=== PATIENT | male | born 1975 | race African-American/Black ===

== ENCOUNTER 2019-07-25 01:02 | Emergency (ER) | payer OTHER, SELFPAY ==
--- NOTE | ~2019-07-25 | XR_ITS ---
EXAMINATION: XR chest 2V DATE: 07/25/2019 01:57 INDICATION: Left-sided chest pain TECHNIQUE: PA and lateral views of the chest were obtained. COMPARISON: Chest radiograph dated 03/14/2019 FINDINGS: The lungs remain clear with no focal airspace opacities, pulmonary edema, pleural effusion or pneumot horax. The cardiomediastinal silhouette is normal. Cholecystectomy clips in the right upper quadrant. Mild thoracic spondylosis. IMPRESSION: 1. No acute cardiopulmonary disease. Reviewed, dictated and finalized at location A. N [employer]SEM[employer]
[2019-07-25 01:09] VITALS: BP 153/99; PULSE 85; RESP 21; TEMP 37; O2SAT 98
--- NOTE | 2019-07-25 01:18 | ED.CHESTPAIN ---
HPI - Chest Pain General Chief Complaint: Chest Pain Stated Complaint: CHEST DISCOMFORT/LEG AND ARM TINGLING Time Seen by Provider: 07/25/19 01:09 Source: patient and RN notes reviewed Mode of arrival: ambulatory Limitations: no limitations History of Present Illness HPI narrative: Pt is a 44 y/o male who presents to the ED with c/o constant lt sided chest discomfort starting around 18:00 yesterday. He notes that he has had intermittent tingling in his lt leg for the past 3-4 days. Pt states that he feels as though he has poor circulation in his lt leg. He notes that his lt leg felt odd and slightly weak while walking yesterday. Pt states that he has also had independent tingling down his lt arm for the past several days. He notes that around 18:00 this evening, he developed heaviness in the lt side of his chest. Pt states that his pain doesn't radiate into his neck or shoulder. He also reports recent palpitations upon exertion, noting that his heart begins to pound after he walks up the stairs. Pt currently denies any back pain. He notes that he hasn't taken any pain medications for his symptoms. Pt states that he was evaluated here previously for similar symptoms, and notes that he was discharged home with no acute findings. MD complaint: chest discomfort Onset (ago): hour(s) (7) Timing of current episode: constant Prior episodes: Yes Pain location: left chest Quality: heaviness Associated symptoms: palpitations and other (tingling in lt arm; tingling in lt leg) Related Data Allergies Allergy/AdvReac Type Severity Reaction Status Date / Time No Known Allergies Allergy Unknown Unverified 03/14/19 10:06 No Known Allergies Allergy Uncoded 03/14/19 10:06 Review of Systems Review of Systems: All systems reviewed & are unremarkable except as noted in HPI and below Cardiovascular: Cardiovascular: Reports palpitations and Reports other (heaviness in lt side of chest) Musculoskeletal: Musculoskeletal: Denies back pain, Denies arthralgias (shoulder pain) and Denies neck pain Neurologic: Reports tingling (tingling in lt leg; tingling in lt arm) [facility] Past Medical History Medical History Back pain GERD (gastroesophageal reflux disease) Hypertension Sleep apnea Surgical History Surgical History H/O esophagogastroduodenoscopy History of cholecystectomy Previous back surgery fusion of L4 and L5 Social History Social History Smoking status: Never smoker Substance use: never Comments PCP is Dr. Shaffer. Exam Narrative: Exam Narrative: GENERAL: Well-appearing, well-nourished, and in no acute distress. HEAD: Normocephalic, atraumatic. ENT: Mucous membranes moist. NECK: Supple. No reproducible neck pain. CHEST: Clear to auscultation. No respiratory distress. HEART: Regular rate and rhythm. Normal peripheral pulses. ABDOMEN: Soft, nontender, nondistended. EXTREMITIES: Normal range of motion. No edema. SKIN: Warm, dry, no rash. NEURO: Alert and oriented x3. Course Course Emergency Course: Unremarkable evaluation. Patient's symptoms do not seem to correlate with each other. Recommend that he follow-up with his primary care physician for further evaluation. Arm and leg pain more likely be radicular. Will start on naproxen. Vital Signs Vital signs: Vital Signs Temperature 98.6 F 07/25/19 01:09 Pulse Rate 85 07/25/19 01:09 Respiratory Rate 21 H 07/25/19 01:09 Blood Pressure 153/99 H 07/25/19 01:09 Pulse Oximetry 98 07/25/19 01:09 Temperature 98.6 F 07/25/19 01:09 Pulse Rate 82 07/25/19 03:55 Respiratory Rate 15 07/25/19 03:55 Blood Pressure 129/86 07/25/19 03:55 Pulse Oximetry 98 07/25/19 03:55 MDM - Chest Pain Lab Data Result diagrams: 07/25/19 01:36 07/25/19 01:36 Labs: Lab Results 07/25/19 07/25/19 Ran
[2019-07-25 01:44] LABS: Basophils Percent Auto 0.6 % (0.2-1.2); Eosinophils Absolute Auto 0.4 K/mm3 (0-0.3); Eosinophils Percent Auto 7.9 % (0-4.4); Hematocrit 39.7 % (42.0-52.0); Immature Granulocyte Absolute 0.01 K/mm3 (0.00-0.031); Immature Granulocyte Percent A 0.2 % (0-0.5); Lymphocytes Percent Auto 34.7 % (18.3-44.2); Mean Corpuscular HGB Conc 32.7 g/dl (32-36); Mean Corpuscular Hemoglobin 29.1 pg (26-34); Mean Platelet Volume 10.3 fl (7.4-10.4); Monocytes Absolute Auto 0.5 K/mm3 (0.1-0.6); Monocytes Percent Auto 9.1 % (2.6-8.5); Neutrophils Absolute Auto 2.5 K/mm3 (1.3-6.7); Neutrophils Percent Auto 47.5 % (45.5-73.1); Platelet Count Result 232 k/mm3 (150-375); Red Blood Count 4.46 M/mm3 (4.6-6.20); Red Cell Distribution Width 13.6 % (11.5-14.5); White Blood Count 5.2 K/mm3 (4.5-10.0)
--- NOTE | 2019-07-25 01:53 | ECG_ITS ---
Measurements Intervals [place] Rate: 88 P: 46 KS: 151 QRS: 5 QRSD: 99 T: 37 QT: 358 QTc: 435 Interpretive Statements SINUS RHYTHM NORMAL ECG Electronically Signed On 07-25-2019 9:24:04 PSYCHOLOGY FELLOW by Tomasz Larios D.O.
[2019-07-25 01:55] LABS: Blood Urea Nitrogen 14 mg/dL (9-20); Calcium 9.2 mg/dL (8.4-10.2); Carbon Dioxide 27 mmol/L (22-30); Chloride 101 mmol/L (98-107); Estimated CRCL calculation 101 ml/min; Estimated Glomerular Filt Rate > 60; Glucose 106 mg/dL (75-110); Potassium 3.8 mmol/L (3.4-5.0); Sodium 139 mmol/L (137-145)
[2019-07-25] MEDS: KETOROLAC 30 MG/ML VIAL (*BKC) IV PUSH (02:05)
[2019-07-25 02:06] VITALS: BP 129/87; PULSE 86; RESP 18; O2SAT 98
[2019-07-25 02:07] LABS: Troponin I < 0.012 ng/mL (0.000-0.034)
[2019-07-25 02:52] VITALS: BP 138/77; PULSE 70; RESP 16; O2SAT 99
[2019-07-25 03:55] VITALS: BP 129/86; PULSE 82; RESP 15; O2SAT 98
[2019-07-25 04:34] VITALS: BP 129/92; PULSE 62; RESP 19; TEMP 37; O2SAT 99
== END 2019-07-25 04:36 | disposition home or self-care (01) ==
PROVIDERS: Emergency Provider Emergency Medicine; PCP Emergency Medicine
DX: R07.89 Other chest pain (principal); K21.9 Gastro-esophageal reflux disease without esophagitis; I10 Essential (primary) hypertension; G47.30 Sleep apnea, unspecified; Z98.1 Arthrodesis status
CPT/HCPCS: 36415; 71046; 80048; 84484; 85025; 93005; 96374; 99284; J1885

== ENCOUNTER 2020-01-24 08:11 | Outpatient (CLI) | payer OTHER, SELFPAY ==
--- NOTE | ~2020-01-24 | MR_ITS ---
EXAMINATION: MR lumbar spine wo con EXAM DATE: 01/24/2020 08:52 INDICATION: Low back pain and left leg pain. TECHNIQUE: Multi-sequential, multiplanar MR images of the lumbar spine were obtained without contrast . Sagittal T1, T2, T2 fat saturation images. Axial T2 weighted images. Comparison is made to prior examination from 01/03/2013. FINDINGS: There is congenitally narrow L5-S1 disc space with moderate superimposed disc disease, prog ression compared to 2013. There is 2 mm retrolisthesis L4 on L5 and L5 on S1. The conus medullaris te rminates at the L1-2 level and has normal signal intensity and morphology. There are no suspicious m arrow signal abnormalities. Paraspinal soft tissue is unremarkable. Level by level evaluation: T11-12: There is a mild diffuse disc bulge. Facet arthropathy: Moderate. Neural foraminal stenosis: Moderate right, mild to moderate left. Central canal stenosis: Mild to moderate. T12-L1: Disc does not extend beyond the endplate margin. Facet arthropathy: Mild. Neural foraminal stenosis: No stenosis. Central canal stenosis: No stenosis. L1-L2: Disc does not extend beyond the endplate margin. Facet arthropathy: Mild. Neural foraminal stenosis: No stenosis. Central canal stenosis: No stenosis. L2-L3: Disc does not extend beyond the endplate margin. Facet arthropathy: Mild. Neural foraminal stenosis: No stenosis. Central canal stenosis: No stenosis. L3-L4: There is a mild diffuse disc bulge. Facet arthropathy: Mild to moderate. Neural foraminal stenosis: Moderate bilateral, left more than right. Central canal stenosis: Mild to moderate. L4-L5: There is a mild to moderate diffuse disc bulge. Facet arthropathy: Moderate. Neural foraminal stenosis: Moderate to severe bilateral. Central canal stenosis: Moderate. L5-S1: There is a mild to moderate diffuse disc bulge. Facet arthropathy: Mild to moderate. Neural foraminal stenosis: Moderate to severe bilateral. Central canal stenosis: Mild to moderate. IMPRESSION: 1. L4-5 and L5-S1 moderate to severe bilateral neural foraminal stenosis. 2. Lesser spondylosis above. Reviewed, dictated and finalized at location B.
== END 2020-01-24 08:12 ==
PROVIDERS: PCP Emergency Medicine; Visit Provider Emergency Medicine
DX: M54.42 Lumbago with sciatica, left side (principal)
CPT/HCPCS: 72148

== ENCOUNTER 2020-02-03 08:44 | Emergency (ER) | payer OTHER, SELFPAY ==
--- NOTE | ~2020-02-03 | XR_ITS ---
EXAMINATION: XR foot LT min 3V DATE: 02/03/2020 09:11 INDICATION: In at the left fifth toe post blunt trauma TECHNIQUE: Dorsoplantar, two oblique and lateral views of the left foot were obtained. COMPARISON: None. FINDINGS: Alignment is normal. No fracture. Joint spaces are normal. Soft tissues are unremarkable. IMPRESSION: 1. Negative left foot radiographs. Reviewed, dictated and finalized at location A.
--- NOTE | 2020-02-03 08:57 | ED.LOWEXIN ---
HPI - Extremity Injury (Lower) General Chief Complaint: Extremity Injury, Lower Stated Complaint: L FOOT PAIN Time Seen by Provider: 02/03/20 08:49 Source: RN notes reviewed History of Present Illness HPI Narrative: Patient presents emergency department from home for left foot pain. Patient states proximally 2 hours prior to arrival he opened his freezer when a package of hamburger fell out onto his left toe. Patient states the pain is on the left fifth toe denies any other trauma or injury. States he did take naproxen at home prior to arrival. Denies any numbness or tingling in the extremity Related Data Allergies Allergy/AdvReac Type Severity Reaction Status Date / Time No Known Allergies Allergy Unknown Verified 02/03/20 09:05 No Known Allergies Allergy Unknown Uncoded 02/03/20 09:05 Review of Systems Review of Systems: Narrative: Gen.: Denies fevers or chills Musculoskeletal: See HPI Neuro: Denies numbness, tingling, weakness Skin: Denies rash Endo: Denies DM PMFSH Past Medical History Medical History Back pain GERD (gastroesophageal reflux disease) Hypertension Sleep apnea Family History Family History (System 01/24/20 @ 13:37 by Tiara Palomo) Mother Patient's mother is in good health Father Patient's father is in good health Sibling Patient's sister is in good health Patient's brother is in good health Social History Social History Smoking status: Never smoker Alcohol intake: never Substance use: never Gender identity (if verbalized by the patient): Male Exam Narrative: Exam Narrative: APPEARANCE: No acute distress, nontoxic, resting in bed Eyes: EOMI HEENT: Normocephalic, atraumatic, RESPIRATORY: No respiratory distress MUSCULOSKELETAl: Tender palpation over the entire left fifth toe, mild swelling no ecchymosis, no tenderness of the remainder of the foot or ankle, dorsalis pedis pulse 2+, neurovascular intact NEURO: Awake and alert. Following commands, speech normal, no focal deficits SKIN:: Warm, dry. Normal Color no rash or lesions Course Course Emergency Course: Discussed with patient results of workup and diagnosis. Discussed need for follow-up with primary care, proper use of medication, and reasons to return to the emergency department. Patient understands and agrees to current treatment plan Vital Signs Vital signs: Vital Signs Temperature 97.1 F L 02/03/20 08:58 Pulse Rate 78 02/03/20 08:58 Respiratory Rate 18 02/03/20 08:58 Blood Pressure 180/103 H 02/03/20 08:58 Pulse Oximetry 100 02/03/20 08:58 Temperature 97.1 F L 02/03/20 08:58 Pulse Rate 78 02/03/20 08:58 Respiratory Rate 18 02/03/20 08:58 Blood Pressure 180/103 H 02/03/20 08:58 Pulse Oximetry 100 02/03/20 08:58 MDM - Extremity Injury (Lower) Imaging Data Radiologist's impression: ITS Impressions Foot X-Ray 02/03/20 09:16 IMPRESSION: 1. Negative left foot radiographs. Discharge Plan Discharge Clinical Impression: Contusion of left foot Patient Disposition: Home, Self-Care Condition: Stable Instructions: Antibiotic Form, Foot Contusion (ED) Additional Instructions: Return for increasing pain numbness or tingling in extremities or any other symptoms of concern. Keep the leg elevated at rest Prescriptions: No Action naproxen 500 mg tablet 500 mg PO BID Qty: 20 RF: 0 Follow-up/Referrals: Brendon Shaffer MD [Primary Care Provider] - 2 Days Time of Disposition: 09:35
[2020-02-03 08:58] VITALS: BP 180/103; PULSE 78; RESP 18; TEMP 36.2; O2SAT 100
== END 2020-02-03 10:06 | disposition home or self-care (01) ==
PROVIDERS: Emergency Provider Emergency Medicine; PCP Emergency Medicine
DX: S90.32XA Contusion of left foot, initial encounter (principal); K21.9 Gastro-esophageal reflux disease without esophagitis; I10 Essential (primary) hypertension; G47.30 Sleep apnea, unspecified; W20.8XXA Other cause of strike by thrown, projected or falling object, initial encounter
CPT/HCPCS: 73630; 99283

== ENCOUNTER 2020-08-02 08:26 | Outpatient (CLI) | payer OTHER, SELFPAY ==
--- NOTE | 2020-08-02 12:00 | NEURO_ITS ---
Impression: # Complains of left lower extremity pain in addition to the history of back pain. # Normal nerve conduction study. # F-waves mildly asymmetrical. # Normal needle/EMG exam except left EDB mildly neurogenic. # Clinical correlation recommended; Higher involvement needs to be ruled out. Nerve Conduction Studies Anti Sensory Summary Table Stim Site NR Peak (ms) P-T Amp (?V) Site1 Site2 Delta-P (ms) Dist (cm) Nick (m/s) Left Sup Fibular Anti Sensory (Ant Lat Mall) 14 cm 3.8 21.0 14 cm Ant Lat Mall 3.8 16.0 42 Left Sural Anti Sensory (Lat Mall) Calf 3.9 6.1 Calf Lat Mall 3.9 16.0 41 Motor Summary Table Stim Site NR Onset (ms) O-P Amp (mV) Site1 Site2 Delta-0 (ms) Dist (cm) Nick (m/s) Left Peroneal Motor (Vastus Med) Ankle 4.1 1.2 Popit Ankle 9.4 42.0 45 Popit 13.5 1.6 Left Tibial Motor (Abd Bowers Brev) Ankle 4.7 2.0 Knee Ankle 8.8 45.0 51 Knee 13.5 1.3 F Wave Studies NR F-Lat (ms) L-R F-Lat (ms) Left Peroneal (Mrkrs) (EDB) 61.29 Left Tibial (Mrkrs) (Abd Hallucis) 58.48 EMG Side Muscle Nerve Root Ins Act Fibs Amp Dur Recrt Comment Left AntTibialis Dp Br Fibular L4-5 Nml Nml Nml Nml Nml Left Gastroc Tibial S1-2 Nml Nml Nml Nml Nml Left Fibularis Long Sup Br Fibular L5-S1 Nml Nml Nml Nml Nml Left Flex Dig Long Tibial L5-S2 Nml Nml Nml Nml Nml Left Ext Dig Brev Dp Br Fibular L5, S1 Nml Nml Nml Nml Reduced MTDD
== END 2020-08-02 08:27 | disposition home or self-care (01) ==
PROVIDERS: PCP Emergency Medicine; Visit Provider Nurse Practitioner Family
DX: M79.2 Neuralgia and neuritis, unspecified (principal)
CPT/HCPCS: 95886; 95908

== ENCOUNTER 2020-10-20 14:38 | Outpatient (CLI) | payer OTHER, SELFPAY ==
--- NOTE | ~2020-10-20 | US_ITS ---
EXAMINATION: US scrotum doppler DATE: 10/20/2020 15:12 INDICATION: Left scrotal pain. TECHNIQUE: Grayscale and Doppler ultrasound images of the testes were obtained. COMPARISON: None. FINDINGS: The right testis measures 4.6 x 2.8 x 2.6 cm. The left testis measures 4.4 x 2.1 x 2.3 cm. There is normal vascular flow to both testes. The right epididymis is normal with normal vascular pramod w. The left epididymis is normal with normal vascular flow. There is no hydrocele. There is a left-si ded varicocele. IMPRESSION: 1. Left-sided varicocele. Reviewed, dictated and finalized at location B. IMPRESSION: 1. Left-sided varicocele.
== END 2020-10-20 14:39 | disposition home or self-care (01) ==
PROVIDERS: PCP Emergency Medicine; Visit Provider Urology
DX: N50.812 Left testicular pain (principal); I86.1 Scrotal varices
CPT/HCPCS: 76870; 93976

== ENCOUNTER 2020-11-15 22:34 | Emergency (ER) | payer OTHER, SELFPAY ==
--- NOTE | ~2020-11-15 | XR_ITS ---
EXAMINATION: XR shoulder RT min 2V EXAM DATE: 11/16/2020 00:25 INDICATION: Initial encounter following injury, with pain of the shoulder. TECHNIQUE: The following right shoulder projections obtained: frontal projection with internal rotati on, frontal projection with external rotation, Grashey, and scapular Y view (4+ views). Comparison is made to prior examination from 10/12/2012. FINDINGS: No evidence of right shoulder rotator cuff calcific tendinosis. There is mild glenohumera l joint, mild acromioclavicular joint primary osteoarthritis. There are no acute fractures or disloca tions identified. There is no subcutaneous gas. The soft tissue is unremarkable. There are no rad iopaque foreign bodies. IMPRESSION: 1. XR shoulder RT min 2V exam without acute osseous findings. Reviewed, dictated and finalized at location A.
[2020-11-15 22:37] VITALS: BP 164/109; PULSE 79; RESP 16; TEMP 35.6; O2SAT 98
--- NOTE | 2020-11-16 00:13 | ED.UPPEXIN ---
HPI - Extremity Injury (Upper) General Chief Complaint: Extremity Injury, Upper Stated Complaint: Right shoulder pain, fall Time Seen by Provider: 11/15/20 23:50 Source: patient Mode of arrival: ambulatory Limitations: no limitations History of Present Illness HPI narrative: This is a 45 year old male who presents for evaluation of right shoulder pain s/p fall. He states he accidentally slipped at work. He states he fell backwards but he did not hit his head. He has right shoulder pain since his fall. Pain with worse with movement. He denies limb numbness or tingling. He denies weakness. HE has not taken anything for pain. He also denies sob. PAin is 4/10. Related Data Allergies Allergy/AdvReac Type Severity Reaction Status Date / Time No Known Allergies Allergy Unknown Verified 02/03/20 09:05 No Known Allergies Allergy Unknown Uncoded 02/03/20 09:05 Review of Systems Review of Systems: All systems reviewed & are unremarkable except as noted in HPI and below PMFSH Past Medical History Medical History (Updated 11/16/20 @ 01:08 by Miriam Camarillo MD) Back pain GERD (gastroesophageal reflux disease) Hypertension Sleep apnea Surgical History Surgical History H/O esophagogastroduodenoscopy History of cholecystectomy Previous back surgery fusion of L4 and L5 Family History Family History (System 01/24/20 @ 13:37 by Tiara Palomo) Mother Patient's mother is in good health Father Patient's father is in good health Sibling Patient's sister is in good health Patient's brother is in good health Social History Social History Smoking status: Never smoker Alcohol intake: never Substance use: never Gender identity (if verbalized by the patient): Male Exam Const: General: no acute distress and alert Orientation/consciousness: patient oriented x3 HENMT: Head: normocephalic and atraumatic Resp: Effort & Inspection: normal respiratory effort and no retractions Auscultation: clear to auscultation bilaterally Cardio: Rate: regular rate Rhythm: regular rhythm Heart sounds: no murmurs Neuro: General: patient oriented x3, moves all extremities and CN's II-XI intact bilaterally Extrem: Other: FROM right shoulder, TTP along right trapezius, nvi Course Vital Signs Vital signs: Vital Signs Temperature 96.1 F L 11/15/20 22:37 Pulse Rate 79 11/15/20 22:37 Respiratory Rate 16 11/15/20 22:37 Blood Pressure 164/109 H 11/15/20 22:37 Pulse Oximetry 98 11/15/20 22:37 Temperature 97.1 F L 11/16/20 01:14 Pulse Rate 80 11/16/20 01:14 Respiratory Rate 16 11/16/20 01:14 Blood Pressure 133/85 11/16/20 01:14 Pulse Oximetry 100 11/16/20 01:14 MDM - Extremity Injury (Upper) Imaging Data Attestation: I personally reviewed and interpreted this imaging study as follows: My impression: right shoulder xray- no fracture, no dislocation Discharge Plan Discharge Clinical Impression: Muscle strain of right shoulder Qualifiers: Encounter type: initial encounter Qualified Code(s): S46.911A - Strain of unspecified muscle, fascia and tendon at shoulder and upper arm level, right arm, initial encounter Patient Disposition: Home, Self-Care Condition: Stable Instructions: Antibiotic Form, Shoulder Sprain (ED) Additional Instructions: Today you were evaluated for your shoulder pain. No fractures were found in your xray. Take naproxen as needed. Follow up with your primary care physician if your pain has not resolved in 1 week. Prescriptions: New naproxen 500 mg tablet,delayed release (DR/EC) 500 mg PO BID PRN (Reason: pain) Qty: 20 RF: 0 No Action naproxen 500 mg tablet 500 mg PO BID Qty: 20 RF: 0 Follow-up/Referrals: Brendon Shaffer MD [Primary Care Provider] -
[2020-11-16] MEDS: CYCLOBENZAPRINE HCL 10 MG TABLET PO (00:26)
[2020-11-16] MEDS: IBUPROFEN 400 MG TABLET 800 MG PO (00:26)
[2020-11-16 01:14] VITALS: BP 133/85; PULSE 80; RESP 16; TEMP 36.2; O2SAT 100
== END 2020-11-16 01:20 | disposition home or self-care (01) ==
PROVIDERS: Emergency Provider General Practice; PCP Emergency Medicine
DX: S46.911A Strain of unspecified muscle, fascia and tendon at shoulder and upper arm level, right arm, initial encounter (principal); K21.9 Gastro-esophageal reflux disease without esophagitis; I10 Essential (primary) hypertension; G47.30 Sleep apnea, unspecified; Z98.1 Arthrodesis status; W01.0XXA Fall on same level from slipping, tripping and stumbling without subsequent striking against object, initial encounter
CPT/HCPCS: 73030; 99283; A9270

== ENCOUNTER 2021-05-01 11:59 | Emergency (ER) | payer OTHER, SELFPAY ==
--- NOTE | ~2021-05-01 | XR_ITS ---
EXAMINATION: XR knee LT min 4V EXAM DATE: 05/01/2021 12:32 INDICATION: fall, injury, pain Attn Lt Ant Inferopatellar Stinging . Initial encounter. TECHNIQUE: Left knee frontal, crosstable lateral, orthogonal oblique projections for interpretation. There is no prior study for comparison. FINDINGS: No evidence osteochondral defect or joint body in the left knee joint. There is minimal p rimary osteoarthritis. No joint effusion. There are no acute fractures or dislocations identified. There is no subcutaneous gas. The soft tissue is unremarkable. There are no radiopaque foreign bod ies. IMPRESSION: 1. Left knee exam without acute osseous findings. Reviewed, dictated and finalized at location A. L [facility] [employer]
[2021-05-01 12:04] VITALS: BP 145/74; PULSE 81; RESP 17; TEMP 35.7; O2SAT 100
--- NOTE | 2021-05-01 20:36 | ED.GENADULT ---
HPI - General Adult General Chief complaint: Extremity Injury, Lower Stated complaint: Fell while running up steps, knee pain Time Seen by Provider: 05/01/21 12:28 Source: patient Mode of arrival: ambulatory Limitations: no limitations History of Present Illness HPI narrative: Patient is a 38-year-old male presented with chief complaint of twisting his left knee after falling on the steps and hitting the anterior aspect on this date. Patient reports that he is able to weight-bear with some discomfort. Patient reports circumferential discomfort to the knee. Patient denies open wounds or prior fractures to the area. Patient denies any head impact, loss of consciousness or any other areas of injury. Related Data Allergies Allergy/AdvReac Type Severity Reaction Status Date / Time No Known Allergies Allergy Unknown Verified 02/03/20 09:05 No Known Allergies Allergy Unknown Uncoded 02/03/20 09:05 Review of Systems Review of Systems: CONSTITUTIONAL: Denies fever, chills, or sweats. EYES: Denies visual changes, redness, or discharge. ENT: Denies rhinorrhea, congestion, sore throat, or otalgia. CARDIOVASCULAR: Denies chest pain, palpitations, or edema. RESPIRATORY: Denies cough or dyspnea. GASTROINTESTINAL: Denies abdominal pain, nausea, vomiting, or diarrhea. GENITOURINARY: Denies dysuria or hematuria. SKIN: Denies rash or itching. MUSCULOSKELETAL: Reports left knee pain denies back pain, joint pain, or myalgia. NEUROLOGIC: Denies headache, numbness, dizziness, or weakness. PSYCHIATRIC: Denies anxiety or depression. [facility] Past Medical History Medical History (Updated 05/01/21 @ 13:01 by Chloe Rivera PA-C) Back pain GERD (gastroesophageal reflux disease) Hypertension Sleep apnea Surgical History Surgical History H/O esophagogastroduodenoscopy History of cholecystectomy Previous back surgery fusion of L4 and L5 Family History Family History (System 01/24/20 @ 13:37 by Tiara Palomo) Mother Patient's mother is in good health Father Patient's father is in good health Sibling Patient's sister is in good health Patient's brother is in good health Social History Social History Smoking status: Never smoker Alcohol intake: never Substance use: never Gender identity (if verbalized by the patient): Male Exam Narrative: GENERAL: Well-appearing, well-nourished, and in no acute distress. HEAD: Normocephalic, atraumatic. EYES: PERRLA and EOMI. CHEST: Clear to auscultation. No respiratory distress. No wheezes rales or rhonchi HEART: Regular rate and rhythm. No murmur heard. Normal peripheral pulses. EXTREMITIES: Normal range of motion. Diffuse tenderness to the left knee. Patient is able to ambulate and weight-bear. No edema. There is some decreased full extension. Flexion intact with possible mild decrease. No significant laxity appreciated. SKIN: Warm, dry, no rash. NEURO: No focal deficits. Alert and oriented x3. PSYCH: Normal mood and affect. Course Vital Signs Vital signs: Vital Signs Temperature 96.2 F L 05/01/21 12:04 Pulse Rate 81 05/01/21 12:04 Respiratory Rate 17 05/01/21 12:04 Blood Pressure 145/74 H 05/01/21 12:04 Pulse Oximetry 100 05/01/21 12:04 Temperature 96.2 F L 05/01/21 12:04 Pulse Rate 81 05/01/21 12:04 Respiratory Rate 17 05/01/21 12:04 Blood Pressure 145/74 H 05/01/21 12:04 Pulse Oximetry 100 05/01/21 12:04 Medical Decision Making MDM Narrative Medical decision making narrative: Discussed sprain, strain protocol with patient. Discussed need to follow-up with primary care for reevaluation if symptoms persist. That if symptoms persist he may need further imaging for evaluation of tendons and ligaments patient verbalized understanding agreement with plan denies any other needs or concerns. Differential Diagnosis Different
== END 2021-05-01 13:14 | disposition home or self-care (01) ==
PROVIDERS: Emergency Provider Emergency Medicine; PCP Emergency Medicine
DX: S83.92XA Sprain of unspecified site of left knee, initial encounter (principal); S80.02XA Contusion of left knee, initial encounter; K21.9 Gastro-esophageal reflux disease without esophagitis; I10 Essential (primary) hypertension; G47.30 Sleep apnea, unspecified; W10.9XXA Fall (on) (from) unspecified stairs and steps, initial encounter
CPT/HCPCS: 73564; 99283

== ENCOUNTER 2021-09-11 11:59 | Emergency (ER) | payer OTHER, SELFPAY ==
[2021-09-11 12:09] VITALS: BP 133/61; PULSE 73; RESP 18; TEMP 36.5; O2SAT 100
--- NOTE | 2021-09-11 14:38 | PC.NURSE ---
Pt was seen by this RN leaving the ED at approx 1350. Room became available and patient called to go back at 13:56. RN checked outside, as patient had not come back in yet. Pt was not outside. Pt called again at 14:20, but pt was not in waiting room or outside. Now 14:41 and pt has still not returned.
== END 2021-09-11 15:25 | disposition left against medical advice (07) ==
LOC: ANHED 14:51
DX: Z53.21 Procedure and treatment not carried out due to patient leaving prior to being seen by health care provider (principal)
CPT/HCPCS: 99199

== ENCOUNTER 2021-09-11 22:48 | Emergency (ER) | payer OTHER, SELFPAY ==
--- NOTE | ~2021-09-11 | XR_ITS ---
EXAMINATION: XR foot RT min 3V DATE: 09/12/2021 00:02 INDICATION: Right fifth toe pain. TECHNIQUE: 3 views of right foot were obtained. COMPARISON: Right fifth toe radiographs 06/03/2018 FINDINGS: Bone alignment is normal. No fracture. There is mild osteoarthritis of first metatarsophala ngeal joint. There is an enthesophyte at posterior aspect of calcaneal tuberosity. IMPRESSION: 1. Mild osteoarthritis of first metatarsophalangeal joint. Reviewed, dictated and finalized at location A.
[2021-09-11 22:53] VITALS: BP 151/84; PULSE 84; RESP 18; TEMP 36.5; O2SAT 100
--- NOTE | 2021-09-11 23:29 | ED.LOWEXIN ---
HPI - Extremity Injury (Lower) General Chief Complaint: Extremity Injury, Lower Stated Complaint: toe pain Time Seen by Provider: 09/11/21 23:11 History of Present Illness HPI Narrative: 46-year-old male presents emergency room with complaints of right toe pain. Patient states this morning struck his toe on a piece of furniture. Patient states he is having pain when he ambulates. Took Tylenol earlier this evening, states that it appeared to resolve his pain. Related Data Allergies Allergy/AdvReac Type Severity Reaction Status Date / Time No Known Allergies Allergy Unknown Verified 09/11/21 22:56 No Known Allergies Allergy Unknown Uncoded 04 22:56 Review of Systems Review of Systems: CONSTITUTIONAL: Denies fever, chills, or sweats. EYES: Denies visual changes, redness, or discharge. ENT: Denies rhinorrhea, congestion, sore throat, or otalgia. CARDIOVASCULAR: Denies chest pain, palpitations, or edema. RESPIRATORY: Denies cough or dyspnea. GASTROINTESTINAL: Denies abdominal pain, nausea, vomiting, or diarrhea. GENITOURINARY: Denies dysuria or hematuria. SKIN: Denies rash or itching. MUSCULOSKELETAL: Reports right toe pain NEUROLOGIC: Denies headache, numbness, dizziness, or weakness. PSYCHIATRIC: Denies anxiety or depression. [facility] Past Medical History Medical History (Updated 09/12/21 @ 00:31 by Jefry Hairston APRN) Back pain GERD (gastroesophageal reflux disease) Hypertension Sleep apnea Surgical History Surgical History H/O esophagogastroduodenoscopy History of cholecystectomy Previous back surgery fusion of L4 and L5 Family History Family History Mother Patient's mother is in good health Father Patient's father is in good health Sibling Patient's sister is in good health Patient's brother is in good health Social History Social History Smoking status: Never smoker Alcohol intake: never Substance use: never Gender identity (if verbalized by the patient): Male Exam Narrative: GENERAL: Well-appearing, well-nourished, and in no acute distress. HEAD: Normocephalic, atraumatic. EYES: PERRLA and EOMI. CHEST: Clear to auscultation. No respiratory distress. No wheezes rales or rhonchi HEART: Regular rate and rhythm. No murmur heard. Normal peripheral pulses. ABDOMEN: Soft, nontender, nondistended, normal active bowel sounds. EXTREMITIES: right 5th toe: +TTP with no obvious STS; No obvious bony abnormality SKIN: Warm, dry, no rash. NEURO: No focal deficits. Alert and oriented x3. PSYCH: Normal mood and affect. Course Vital Signs Vital signs: Vital Signs Temperature 36.5 C 09/11/21 22:53 Pulse Rate 84 09/11/21 22:53 Respiratory Rate 18 09/11/21 22:53 Blood Pressure 151/84 H 09/11/21 22:53 Pulse Oximetry 100 09/11/21 22:53 Temperature 36.5 C 09/11/21 22:53 Pulse Rate 84 09/11/21 22:53 Respiratory Rate 18 09/11/21 22:53 Blood Pressure 151/84 H 09/11/21 22:53 Pulse Oximetry 100 09/11/21 22:53 MDM - Extremity Injury (Lower) Imaging Data My impression: No acute fracture Discharge Plan Discharge Clinical Impression: Contusion of toe Qualifiers: Encounter type: initial encounter Toe: lesser toe Damage to nail status: without damage Laterality: right Qualified Code(s): S90.121A - Contusion of right lesser toe(s) without damage to nail, initial encounter Patient Disposition: Home, Self-Care Condition: Stable Instructions: Antibiotic Form Prescriptions: No Action naproxen 500 mg tablet 500 mg PO BID Qty: 20 RF: 0 naproxen 500 mg tablet,delayed release (DR/EC) 500 mg PO BID PRN (Reason: pain) Qty: 20 RF: 0 Follow-up/Referrals: Ta Pinedo DPM [Physician] - Chantell Trevino DPM [Physician] - Brendon Shaffer MD [Primary Care Provider] - Time of Disp
[2021-09-12 01:02] VITALS: BP 135/69; PULSE 78; RESP 16; O2SAT 100
== END 2021-09-12 01:22 | disposition home or self-care (01) ==
PROVIDERS: Emergency Provider Nurse Practitioner Family; PCP Emergency Medicine
DX: S90.121A Contusion of right lesser toe(s) without damage to nail, initial encounter (principal); I10 Essential (primary) hypertension; G47.30 Sleep apnea, unspecified; W22.03XA Walked into furniture, initial encounter
CPT/HCPCS: 73630; 99283

== ENCOUNTER 2022-02-12 15:33 | Emergency (ER) | payer OTHER, SELFPAY ==
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
[2022-02-12 15:36] VITALS: BP 150/91; PULSE 79; RESP 16; TEMP 36.2; O2SAT 100
--- NOTE | 2022-02-12 16:36 | ED.LOWEXIN ---
HPI - Extremity Injury (Lower) General Chief Complaint: Extremity Injury, Lower <JOLANTA Cevallos Last Filed: 02/12/22 18:20> Stated Complaint: Possible broken right 5th toe <Chantell Trevino PA-C - Last Filed: 02/12/22 18:20> Time Seen by Provider: 02/12/22 16:06 <JOLANTA Cevallos Last Filed: 02/12/22 18:20> History of Present Illness HPI Narrative: Patient is a 46-year-old male here for evaluation of right fifth toe pain and injury. He states that he kicked his foot against a door about 30 minutes before arrival. Reports pain ever since, notes that the toe was numb for a second or two but is not numb since. Tetanus is up-to-date. Has been walking since. <JOLANTA Cevallos Last Filed: 02/12/22 18:20> Related Data Allergies/Adverse Reactions: Allergies Allergy/AdvReac Type Severity Reaction Status Date / Time No Known Allergies Allergy Unknown Uncoded 02/12/22 15:43 <JOLANTA Cevallos Last Filed: 02/12/22 18:20> Review of Systems Review of Systems: Gen.: Denies fevers or chills Eyes: Denies eye pain or visual change ENT: Denies congestion Respiratory: Denies shortness of breath or cough CV: Denies chest pain or palpitations GI: Denies abdominal pain nausea, emesis or diarrhea denies burning, urgency, frequency or hematuria Musculoskeletal: Reports right pinky toe pain. Neuro: Denies numbness, tingling, weakness or focal weakness Skin: Denies rash Except as documented, all other systems reviewed and negative <JOLANTA Cevallos Last Filed: 02/12/22 18:20> [facility] Past Medical History Medical History: Medical History (Updated 02/13/22 @ 00:00 by Background Daemon) Back pain GERD (gastroesophageal reflux disease) Hypertension Sleep apnea <JOLANTA Cevallos Last Filed: 02/12/22 18:20> Surgical History Surgical History: Surgical History H/O esophagogastroduodenoscopy History of cholecystectomy Previous back surgery fusion of L4 and L5 <Chantell Trevino PA-C - Last Filed: 02/12/22 18:20> Family History Family History: Family History Mother Patient's mother is in good health Father Patient's father is in good health Sibling Patient's sister is in good health Patient's brother is in good health <Chantell Trevino PA-C - Last Filed: 02/12/22 18:20> Social History Social History: Social History Smoking status: Never smoker Alcohol intake: never Substance use: never Gender identity (if verbalized by the patient): Male <Chantell Trevino PA-C - Last Filed: 02/12/22 18:20> Exam Narrative: Gen: Alert, oriented, no acute distress Eyes: EOMI, no icterus Pulm: Respirations even and unlabored, symmetric thorax expansion, no audible stridor or visible cyanosis CV: 2+ DP and PT pulses bilaterally. GI: No distension, no voluntary/involuntary guarding Neuro: AOx4, moves all extremities without apparent difficulty or weakness, follows commands MSK: Full range of motion in toes 1 through 5. Sensation intact to entire foot. Skin: Patient has abrasion to the base of the right fifth toenail with no active bleeding. Psych: Normal mood/affect, insight/judgement good, adequate fund of knowledge, recent/remote memory intact <Chantell Trevino PA-C - Last Filed: 02/12/22 18:20> Course STOPER/PA Physician Supervision For this patient encounter, I reviewed the STOPER or PA documentation, treatment plan, and medical decision making <Charles Cervantes MD - Last Filed: 02/13/22 07:18> Vital Signs Vital signs: Vital Signs Temperature 97.1 F L 02/12/22 15:36 Pulse Rate 79 02/12/22 15:36 Respiratory Rate 16 02/12/22 15:36 Blood Pressure 150/91 H 02/12/22 15:36 Pulse Oximetry
[2022-02-12] MEDS: IBUPROFEN 600 MG TABLET PO (16:47)
[2022-02-12] MEDS: ACETAMINOPHEN 325 MG TABLET 650 MG PO (16:47)
== END 2022-02-12 17:18 | disposition home or self-care (01) ==
PROVIDERS: Emergency Provider Emergency Medicine; PCP Emergency Medicine
DX: S99.921A Unspecified injury of right foot, initial encounter (principal); K21.9 Gastro-esophageal reflux disease without esophagitis; I10 Essential (primary) hypertension; G47.30 Sleep apnea, unspecified; W22.01XA Walked into wall, initial encounter
CPT/HCPCS: 73630; 99283; A9270

== ENCOUNTER 2022-02-24 02:29 | Emergency (ER) | payer OTHER, SELFPAY ==
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
[2022-02-24 02:39] VITALS: BP 132/89; PULSE 68; RESP 18; TEMP 36.3; O2SAT 100
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
== END 2022-02-24 04:25 | disposition home or self-care (01) ==
PROVIDERS: Emergency Provider Emergency Medicine; PCP Emergency Medicine
DX: S40.021A Contusion of right upper arm, initial encounter (principal); S70.01XA Contusion of right hip, initial encounter; K21.9 Gastro-esophageal reflux disease without esophagitis; I10 Essential (primary) hypertension; G47.30 Sleep apnea, unspecified; M89.9 Disorder of bone, unspecified; M16.0 Bilateral primary osteoarthritis of hip; V43.52XA Car driver injured in collision with other type car in traffic accident, initial encounter
CPT/HCPCS: 71046; 73060; 73502; 99284

== ENCOUNTER 2022-03-26 14:50 | Outpatient (CLI) | payer OTHER, SELFPAY ==
--- NOTE | ~2022-03-26 | CT_ITS ---
EXAMINATION: CT UE LT w con DATE: 03/26/2022 15:28 INDICATION: Left humeral mass. TECHNIQUE: Computed tomography (CT) of the left upper arm was performed without intravenous contrast. Automated exposure control and iterative reconstruction technique were employed. The dose-length pro duct was 828.11 mGy-cm. COMPARISON: Left humerus radiographs 02/24/2022 FINDINGS: Bone alignment is normal. No fracture. There is mild osteoarthritis of glenohumeral joint, severe osteoarthritis of acromioclavicular joint, and mild osteoarthritis of the elbow joint. At the proximal humeral diaphysis, there is a 3.4 x 2.0 x 4.1 cm nonaggressive expansile lytic lesion arisin g from the cortex with cap of calcifications in a pattern of cartilaginous matrix. The cartilage cap demonstrates a thickness of 13 mm. IMPRESSION: 1. 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 Low-g rade chondrosarcoma may have a similar appearance. Consider excision. Reviewed, dictated and finalized at location A. IMPRESSION: 1. 4.1 cm mass arising from the proximal humeral diaphysis, most likely a perio steal chondroma. Low-grade chondrosarcoma may have a similar appearance. Consid er excision.
[2022-03-26 15:13] LABS: Estimated Glomerular Filt Rate > 60
== END 2022-03-26 14:51 | disposition home or self-care (01) ==
LOC: ANHIMG 14:56
PROVIDERS: PCP Emergency Medicine; Visit Provider Emergency Medicine
DX: R22.32 Localized swelling, mass and lump, left upper limb (principal)
CPT/HCPCS: 73201; Q9967

== ENCOUNTER → 2022-05-06 15:49 | Outpatient (CLI) | payer OTHER, SELFPAY ==
--- NOTE | ~2022-05-06 | MR_ITS ---
EXAMINATION: MR shoulder LT wo con DATE: 05/06/2022 17:31 INDICATION: Left shoulder pain. TECHNIQUE: Magnetic resonance imaging (MRI) of the left shoulder was performed without intravenous co ntrast. Sequences included axial PD-weighted FS FSE, coronal oblique PD-weighted FS FSE and T2-weight ed FS FSE, and sagittal oblique T2-weighted FS FSE and T1-weighted FSE. COMPARISON: CT 03/26/2022 FINDINGS: Coracoacromial arch: The acromion undersurface is curved in morphology (type II). There is severe acromioclavicular joint osteoarthritis. There is mild subacromial/subdeltoid bursitis. Rotator cuff: There is mild supraspinatus tendinopathy and moderate infraspinatus tendinopathy. Teres minor tendon is normal. Subscapularis tendon is normal. There is no fatty atrophy of the rotator cuff muscle quan es. Biceps tendon and glenoid labrum: Biceps tendon is in bicipital groove. There is severe tendinopathy and partial tear of biceps tendon. The glenoid labrum is normal. Fluid: There is a small glenohumeral joint effusion. Bones/cartilage: There is cartilage surface irregularity of glenoid and humeral head. IMPRESSION: 1. Severe tendinopathy and partial tear of proximal biceps tendon. 2. Moderate rotator cuff tendinopathy. No tear. 3. Mild glenohumeral joint chondrosis. 4. Severe acromioclavicular joint osteoarthritis. 5. Mild subacromial/subdeltoid bursitis. 6. Small glenohumeral joint effusion. Reviewed, dictated and finalized at location A. [employer]
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
== END ==
PROVIDERS: PCP Emergency Medicine
DX: M79.622 Pain in left upper arm (principal); M19.012 Primary osteoarthritis, left shoulder; M75.52 Bursitis of left shoulder; M25.412 Effusion, left shoulder
CPT/HCPCS: 73218; 73221

== ENCOUNTER 2022-12-19 13:11 | Emergency (ER) | payer OTHER, SELFPAY ==
--- NOTE | ~2022-12-19 | CT_ITS ---
EXAMINATION: CT cervical spine wo con DATE: 12/19/2022 16:00 INDICATION: Head injury TECHNIQUE: Computed tomography (CT) of the cervical spine was performed without intravenous contrast. The dose-length product (DLP) was 553.66 mGy-cm. Automated exposure control and iterative reconstruc tion technique were employed. COMPARISON: None FINDINGS: No fracture, dislocation, or subluxation. The vertebral body heights and intervertebral spa noé are normal. The odontoid process is intact. There are mild posterior disc bulges at a few levels. IMPRESSION: 1. Mild cervical spondylosis without acute findings. Reviewed, dictated and finalized at location L.
--- NOTE | ~2022-12-19 | CT_ITS ---
EXAMINATION: CT brain wo con INDICATION: Head injury COMPARISON: None TECHNIQUE: Standard unenhanced head CT. The dose-length product (DLP) was 605.33 mGy-cm. The mA was a djusted according to patient size. Iterative reconstruction technique was employed. FINDINGS: There is no intracranial hemorrhage, acute infarction, or abnormal mass lesion. The ventric les are normal. There is no abnormal mass effect or midline shift. The strong-white matter differentiat ion is normal. The basal cisterns are patent. The orbits are normal. There is mild mucosal thickening of the paranasal sinuses. IMPRESSION: 1. No acute intracranial abnormality. Reviewed, dictated and finalized at location L.
[2022-12-19 13:15] VITALS: BP 147/85; PULSE 78; RESP 16; TEMP 36.2; O2SAT 100
[2022-12-19 14:19] VITALS: BP 131/94; PULSE 64; RESP 18; O2SAT 100
--- NOTE | 2022-12-19 15:50 | ED.FALL ---
HPI - Fall General Chief Complaint: Fall Stated Complaint: FALL DOWN 1/2FLIGHT OF STEPS,BACK PAIN Time Seen by Provider: 12/19/22 14:32 History of Present Illness HPI Narrative: 47-year-old male presented to the emergency department for evaluation of head and neck pain after having a fall down approximately 5 stairs. Patient states he struck his buttock lower back neck and head while going down some stairs. Patient denies any loss of consciousness. Patient states he did have a mild headache that is now resolving. Related Data Home Medications Medication Instructions Recorded Confirmed irbesartan 150 tablet 02/24/22 mg-hydrochlorothiazide 12.5 mg tablet Allergies Allergy/AdvReac Type Severity Reaction Status Date / Time latex Allergy Itching Verified 12/19/22 14:24 Review of Systems Review of Systems: All systems reviewed & are unremarkable except as noted in HPI and below PMFSH Past Medical History Medical History (Updated 12/19/22 @ 17:07 by Charles Cervantes MD) Back pain GERD (gastroesophageal reflux disease) Hypertension Sleep apnea Surgical History Surgical History H/O esophagogastroduodenoscopy History of cholecystectomy Previous back surgery fusion of L4 and L5 Family History Family History Mother Patient's mother is in good health Father Patient's father is in good health Sibling Patient's sister is in good health Patient's brother is in good health Social History Social History Smoking status: Never smoker Alcohol intake: never Substance use: never Gender identity (if verbalized by the patient): Male Exam Narrative: APPEARANCE: Well appearing, no pain, no distress, well-nourished. HEAD: normocephalic, posterior head tenderness. EYES: PERRLA/EOMI, conjunctivae clear. NOSE: Normal no drainage NECK: Tenderness over C7 RESPIRATORY: Airway patent, respirations nonlabored. Clear to auscultation bilaterally, no rales, rhonchi, wheezing. CARDIOVASCULAR: Regular rate and rhythm without murmurs rubs or gallops. ABDOMINAL: Soft, nontender, nondistended, normal bowel sounds MUSCULOSKELETAL: Moves all extremities. Strength/ROM intact, No edema, No calf tenderness. No midline back tenderness to palpation NEURO: Alert. Cranial nerves II through XII intact. Grossly intact SKIN: Warm, dry. Normal Color Course Course Emergency Course: Patient was updated on the plan for CT head and neck. All questions and concerns were addressed. Head and neck CT were negative. Patient was updated the results of the work-up and imaging. Patient was encouraged of close follow-up with his primary care physician. Vital Signs Vital signs: Vital Signs Temperature 97.1 F L 12/19/22 13:15 Pulse Rate 78 12/19/22 13:15 Respiratory Rate 16 12/19/22 13:15 Blood Pressure 147/85 H 12/19/22 13:15 Pulse Oximetry 100 12/19/22 13:15 Oxygen Delivery Room Air 12/19/22 13:15 Temperature 97.1 F L 12/19/22 13:15 Pulse Rate 64 12/19/22 14:19 Respiratory Rate 18 12/19/22 14:19 Blood Pressure 131/94 H 12/19/22 14:19 Pulse Oximetry 100 12/19/22 14:19 Oxygen Delivery Room Air 12/19/22 14:19 Discharge Plan Discharge Clinical Impression: Head injury, Acute neck pain Patient Disposition: Home, Self-Care Condition: Stable Instructions: Antibiotic Form, Head Injury (ED) Additional Instructions: Tylenol and ibuprofen for pain control. Flexeril as needed for muscle spasm. Have close follow-up with your primary care physician. Prescriptions: New cyclobenzaprine 10 mg tablet 10 mg PO BID PRN (Reason: muscle spasm) Qty: 14 0RF No Action irbesartan-hydrochlorothiazide 150-12.5 mg tablet ibuprofen 600 mg tablet 600 mg PO TID PRN (Reason: pain) Qty: 14 0
== END 2022-12-19 17:28 | disposition home or self-care (01) ==
PROVIDERS: Emergency Provider Emergency Medicine; PCP Emergency Medicine
DX: S09.90XA Unspecified injury of head, initial encounter (principal); S19.9XXA Unspecified injury of neck, initial encounter; I10 Essential (primary) hypertension; K21.9 Gastro-esophageal reflux disease without esophagitis; G47.30 Sleep apnea, unspecified; Z90.49 Acquired absence of other specified parts of digestive tract; W10.9XXA Fall (on) (from) unspecified stairs and steps, initial encounter
CPT/HCPCS: 70450; 72125; 99284

== ENCOUNTER 2023-07-28 13:16 | Emergency (ER) | payer OTHER, SELFPAY ==
[2023-07-28 13:21] VITALS: BP 164/94; PULSE 81; RESP 16; TEMP 36.4; O2SAT 100
--- NOTE | 2023-07-28 14:10 | ED.URI ---
HPI - URI/Sore Throat General Chief Complaint: Upper Respiratory Infection Stated Complaint: Sinus Infection Symptoms Time Seen by Provider: 07/28/23 13:52 Source: patient and RN notes reviewed Mode of arrival: ambulatory Limitations: no limitations History of Present Illness HPI Narrative: Patient presents today complaining of a 2 day history of fatigue, congestion, rhinorrhea, sinus pressure, postnasal drip, with headache that started today. Denies fever or cough. He tried Benadryl without relief. Related Data Home Medications Medication Instructions Recorded Confirmed irbesartan 150 1 tablet PO DAILY 02/24/22 07/28/23 mg-hydrochlorothiazide 12.5 mg tablet sildenafil 100 mg tablet 100 mg PO DIRECTED 07/28/23 07/28/23 Allergies Allergy/AdvReac Type Severity Reaction Status Date / Time latex Allergy Itching Verified 07/28/23 13:58 Review of Systems Review of Systems: CONSTITUTIONAL: Denies body aches, fever, chills, or sweats.+ fatigue EYES: Denies visual changes, redness, or discharge. ENT: Denies sore throat, or otalgia.+ congestion, sinus pressure, postnasal drip, rhinorrhea CARDIOVASCULAR: Denies chest pain, palpitations, or edema. RESPIRATORY: Denies cough or dyspnea. GASTROINTESTINAL: Denies abdominal pain, nausea, vomiting, or diarrhea. GENITOURINARY: Denies dysuria or hematuria. SKIN: Denies rash, itching, or wounds. MUSCULOSKELETAL: Denies back pain, joint pain, or myalgia. NEUROLOGIC: Denies numbness, tingling, or weakness.+ headache PSYCH: Denies depression or anxiety. [facility] Past Medical History Medical History (Updated 07/28/23 @ 14:21 by Andreea Ragland, KATHY, ) Back pain GERD (gastroesophageal reflux disease) Hypertension Sleep apnea Surgical History Surgical History H/O esophagogastroduodenoscopy History of cholecystectomy Previous back surgery fusion of L4 and L5 Family History Family History Mother Patient's mother is in good health Father Patient's father is in good health Sibling Patient's sister is in good health Patient's brother is in good health Social History Social History (Reviewed 07/28/23 @ 14:11 by Andreea Ragland, [facility] [place], ) Smoking status: Never smoker Alcohol intake: never Substance use: never Gender identity (if verbalized by the patient): Male Comments At time of signature, I have reviewed and agree with nursing past medical, surgical, social and family history unless otherwise noted. Please see nursing chart for further information. There is no relevant family history pertinent to the presenting complaint Exam Narrative: GENERAL: Well-appearing, well-nourished, and in no acute distress. HEAD: Normocephalic, atraumatic. EYES: EOMI. No redness or drainage. Conjunctivae normal. ENT: Mucous membranes pink and moist. Nares congested. No rhinorrhea. TMs normal bilaterally. Throat normal. Uvula midline. NECK: Normal AROM. Supple. No lymphadenopathy. CHEST: No respiratory distress. Clear to auscultation. HEART: Regular rate and rhythm. No murmur appreciated. EXTREMITIES: Normal range of motion. No edema. SKIN: Warm, dry, no rash. Capillary refill normal. Normal skin turgor. NEURO: No focal deficits. Alert and oriented x3. Gait steady. PSYCH: Normal affect. No signs of depression or anxiety. Course Course Level of Care: Express Care Visit Vital Signs Vital signs: Vital Signs Temperature 97.6 F 07/28/23 13:21 Pulse Rate 81 07/28/23 13:21 Respiratory Rate 16 07/28/23 13:21 Blood Pressure 164/94 H 07/28/23 13:21 Pulse Oximetry 100 07/28/23 13:21 Oxygen Delivery Room Air 07/28/23 13:21 Temperature 97.6 F 07/28/23 13:21 Pulse Rate 81 07/28/23 13:21 Respiratory Rate 16 07/28/23 13:21 Blood Pressure 164/94 H 07/28/23 13:21 Pulse Oximetry 100 07/28/23 13:
== END 2023-07-28 14:24 | disposition home or self-care (01) ==
PROVIDERS: Emergency Provider Nurse Practitioner; PCP Emergency Medicine
DX: J06.9 Acute upper respiratory infection, unspecified (principal); Z20.822 Contact with and (suspected) exposure to COVID-19; K21.9 Gastro-esophageal reflux disease without esophagitis; I10 Essential (primary) hypertension
CPT/HCPCS: 87426; 87804; 99213; G0463

== ENCOUNTER 2023-10-29 17:18 | Emergency (ER) | payer OTHER, SELFPAY ==
[2023-10-29] VITALS (9 sets, daily range): BP systolic 126–137; BP diastolic 79–99; PULSE 65–76; RESP 14–21; TEMP 36.3; O2SAT 90–100
--- NOTE | ~2023-10-29 | XR_ITS ---
EXAMINATION: XR chest 2V DATE: 10/29/2023 17:59 INDICATION: Chest pain TECHNIQUE: PA and lateral views of the chest were obtained. COMPARISON: Chest radiograph date FINDINGS: Chronic mild elevation versus eventration of the left hemidiaphragm. Persistent linear opacity projec ting over the anterior lung base on the lateral projection consistent with discoid atelectasis likely the lingula. No new airspace opacities, pulmonary edema, pleural effusion or pneumothorax. The cardi omediastinal silhouette is normal. Cholecystectomy clips in right upper quadrant. IMPRESSION: 1. Unchanged mild elevation the left hemidiaphragm with unchanged mild discoid atelectasis/scarring a t the lingula. No other acute pulmonary disease. Reviewed, dictated and finalized at location A. IMPRESSION: 1. Unchanged mild elevation the left hemidiaphragm with unchanged mild discoid atelectasis/scarring at the lingula. No other acute pulmonary disease.
--- NOTE | 2023-10-29 17:19 | ECG_ITS ---
SEE SCANNED COPY FOR CONFIRMED REPORT MTDD
[2023-10-29 17:39] LABS: Basophils Percent Auto 0.4 % (0.2-1.2); Eosinophils Absolute Auto 0.4 K/mm3 (0-0.3); Eosinophils Percent Auto 7.2 % (0-4.4); Hematocrit 39.1 % (42.0-52.0); Hemoglobin 13.3 g/dL (14.0-18.0); Immature Granulocyte Absolute 0.02 K/mm3 (0.00-0.031); Immature Granulocyte Percent A 0.4 % (0-0.5); Lymphocytes Absolute Auto 1.24 K/mm3 (0.9-3.2); Lymphocytes Percent Auto 25.5 % (18.3-44.2); Mean Corpuscular Volume 88.1 fl (80-100); Mean Platelet Volume 9.7 fl (7.4-10.4); Monocytes Absolute Auto 0.6 K/mm3 (0.1-0.6); Monocytes Percent Auto 11.3 % (2.6-8.5); Neutrophils Absolute Auto 2.7 K/mm3 (1.3-6.7); Neutrophils Percent Auto 55.2 % (45.5-73.1); Platelet Count Result 209 k/mm3 (150-375); Red Blood Count 4.44 M/mm3 (4.6-6.20); Red Cell Distribution Width 13.9 % (11.5-14.5); White Blood Count 4.9 K/mm3 (4.5-10.0)
[2023-10-29 17:49] LABS: Alanine Aminotransferase 32 U/L (6-50); Albumin Level 4.6 g/dL (3.5-5.1); Alkaline Phosphatase 126 U/L (38-126); Anion Gap 7 mmol/L (4-12); Aspartate Amino Transferase 39 U/L (17-59); Bilirubin,Total 0.8 mg/dL (0.2-1.3); Blood Urea Nitrogen 11 mg/dL (9-20); Calcium 9.7 mg/dL (8.4-10.2); Carbon Dioxide 25 mmol/L (22-30); Chloride 105 mmol/L (98-107); Estimated CRCL calculation 96 ml/min; Estimated Glomerular Filt Rate > 60; Glucose 97 mg/dL (65-110); Lipase 77 U/L (23-300); Potassium 3.9 mmol/L (3.4-5.0); Prothrombin Time 13.2 Seconds (11.1-14.7); Sodium 137 mmol/L (137-145)
[2023-10-29 17:51] LABS: Partial Thromboplastin Time 30.1 Seconds (22.3-36.8)
[2023-10-29] MEDS: ASPIRIN 81 MG CHEWABLE TABLET 324 MG PO (17:52)
[2023-10-29 17:59] LABS: Troponin I < 0.012 ng/mL (0.000-0.034)
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
--- NOTE | 2023-10-29 20:32 | ECG_ITS ---
SEE SCANNED COPY FOR CONFIRMED REPORT MTDD
[2023-10-29 21:14] LABS: Troponin I < 0.012 ng/mL (0.000-0.034)
== END 2023-10-29 21:40 | disposition home or self-care (01) ==
PROVIDERS: Emergency Provider Emergency Medicine; PCP Emergency Medicine
DX: R07.9 Chest pain, unspecified (principal); I10 Essential (primary) hypertension; K21.9 Gastro-esophageal reflux disease without esophagitis; G47.30 Sleep apnea, unspecified; Z90.49 Acquired absence of other specified parts of digestive tract; Z98.1 Arthrodesis status
CPT/HCPCS: 36415; 71046; 80053; 83690; 84484; 85025; 85610; 85730; 93005; 99284; A9270

== ENCOUNTER 2024-03-15 09:54 | Emergency (ER) | payer OTHER, SELFPAY ==
--- NOTE | ~2024-03-15 | XR_ITS ---
Left ankle Technique: AP, oblique, and lateral views were obtained. Clinical History: Pain Findings: No acute fracture or dislocation is seen. Osseous alignment is anatomic. Ankle mortise and other visualized joint spaces are preserved. Soft tissues are otherwise unremarkable. Impression: Unremarkable left ankle. Reviewed, dictated and finalized at location . Impression: Unremarkable left ankle.
[2024-03-15 09:56] VITALS: BP 147/76; PULSE 79; RESP 18; TEMP 36.4; O2SAT 99
[2024-03-15 10:56] VITALS: BP 132/82; PULSE 68; RESP 14; TEMP 36.4; O2SAT 100
--- NOTE | 2024-03-15 12:15 | ED.LOWEXIN ---
HPI - Extremity Injury (Lower) General Chief Complaint: Extremity Injury, Lower Stated Complaint: left leg injury Time Seen by Provider: 03/15/24 10:59 Source: patient Mode of arrival: ambulatory Limitations: no limitations History of Present Illness HPI Narrative: Patient is a 49 y/o female who presents to the ED with c/o left ankle pain. Patient reports he tripped while walking down the stairs this morning, rolling his left ankle. C/o pain to L foot and ankle. Denies other injuries. Denies HI/LOC. Denies numbness. Has not taken anything for pain. Related Data Home Medications Medication Instructions Recorded Confirmed irbesartan 150 1 tablet PO DAILY 02/24/22 07/28/23 mg-hydrochlorothiazide 12.5 mg tablet sildenafil 100 mg tablet 100 mg PO DIRECTED 07/28/23 07/28/23 Allergies Allergy/AdvReac Type Severity Reaction Status Date / Time latex Allergy Itching Verified 03/15/24 11:11 Review of Systems Review of Systems: All systems reviewed & are unremarkable except as noted in HPI. All systems reviewed & are unremarkable except as noted in HPI and below PMFSH Past Medical History Medical History Back pain GERD (gastroesophageal reflux disease) Hypertension Sleep apnea Surgical History Surgical History H/O esophagogastroduodenoscopy History of cholecystectomy Previous back surgery fusion of L4 and L5 Family History Family History Mother Patient's mother is in good health Father Patient's father is in good health Sibling Patient's sister is in good health Patient's brother is in good health Social History Social History Smoking status: Never smoker Alcohol intake: never Substance use: never Gender identity (if verbalized by the patient): Male Exam Narrative: GENERAL: Well appearing, obese with BMI of 39.3, non-toxic, in no acute distress. HEAD: Normocephalic, atraumatic. RESPIRATORY: Airway patent, respirations nonlabored. CARDIOVASCULAR: Regular rate and rhythm. Pedal pulses are intact and easily palpable. MUSCULOSKELETAL: Moves all extremities. No gross deformities. Mild tenderness to palpation throughout L medial malleoli, along 1st metatarsal of left foot. No significant swelling or bruising. Sensation intact. Capillary refill intact. SKIN: Warm, dry, normal color. NEURO: A&O X3. Speech clear. Cranial nerves II-XII grossly intact. No ataxic movements. PSYCHIATRIC: Appropriate mood and affect. Normal interaction. Course Vital Signs Vital signs: Vital Signs Temperature 97.5 F L 03/15/24 09:56 Pulse Rate 79 03/15/24 09:56 Respiratory Rate 18 03/15/24 09:56 Blood Pressure 147/76 H 03/15/24 09:56 Pulse Oximetry 99 03/15/24 09:56 Oxygen Delivery Room Air 03/15/24 09:56 Temperature 98.1 F 03/15/24 13:00 Pulse Rate 78 03/15/24 13:00 Respiratory Rate 16 03/15/24 13:00 Blood Pressure 130/87 03/15/24 13:00 Pulse Oximetry 100 03/15/24 13:00 Oxygen Delivery Room Air 03/15/24 09:56 MDM - Extremity Injury (Lower) MDM Narrative Medical decision making narrative: Patient?s injury is consistent with musculoskeletal etiology. No signs of neurologic or vascular compromise on physical examination. Compartments are soft without signs of compartment syndrome. XR of left foot and ankle negative for acute osseous abnormality. Pain is consistent with ankle sprain. Patient is felt to be stable for discharge home and further outpatient management and treatment. Given SONAL bandage in the ED. discussed rice therapy, return precautions. Patient in agreement with plan. Discharged in stable condition. Medical Records Attestation: I reviewed the patient's medical records. Imaging Data Attestati
[2024-03-15] MEDS: NAPROXEN 500 MG TABLET PO (12:32)
[2024-03-15 13:00] VITALS: BP 130/87; PULSE 78; RESP 16; TEMP 36.7; O2SAT 100
== END 2024-03-15 13:02 | disposition home or self-care (01) ==
PROVIDERS: Emergency Provider Physician Assistant; PCP Emergency Medicine
DX: S93.402A Sprain of unspecified ligament of left ankle, initial encounter (principal); I10 Essential (primary) hypertension; K21.9 Gastro-esophageal reflux disease without esophagitis; G47.30 Sleep apnea, unspecified; Z98.1 Arthrodesis status; Z90.49 Acquired absence of other specified parts of digestive tract; W10.9XXA Fall (on) (from) unspecified stairs and steps, initial encounter
CPT/HCPCS: 73610; 73630; 99283; A9270

== ENCOUNTER 2024-05-30 14:09 | Emergency (ER) | payer OTHER, SELFPAY ==
--- NOTE | ~2024-05-30 | XR_ITS ---
XR knee RT 3V DATE: 05/30/2024 16:18 INDICATION: Right lateral knee pain TECHNIQUE: 3 views COMPARISON: None FINDINGS: No fracture or dislocation or joint effusion. Minimal osteoarthritis of the patellofemoral and medial compartments. No radiopaque intra-articular l oose body or, calcinosis. No periosteal reaction or bone destruction. IMPRESSION: Minimal patellofemoral and medial compartment osteoarthritis Reviewed, dictated and finalized at location A. ASSOCIATE
[2024-05-30 15:27] VITALS: BP 130/84; PULSE 82; RESP 16; TEMP 36.2; O2SAT 100
--- NOTE | 2024-05-30 16:04 | ED_ITS ---
HPI - General Adult General Chief complaint: Extremity Injury, Lower Stated complaint: Right Knee Pain Source: patient Mode of arrival: ambulatory Limitations: no limitations History of Present Illness HPI narrative: Patient presents for evaluation of right knee pain. Symptom onset last night. Earlier in the day he was jumping up and down at [employer]. He is wondering if he may have injured his right knee in the process. Today he has noted intermittent right knee pain, particularly with movement. He rates his pain 5/10 in severity. No history of problems with the right knee in the past. No radicular component. No paresthesias. He has not taken any medication to assist with the symptoms. He is still able to ambulate without difficulty. Related Data Home Medications ?Medication ?Instructions ?Recorded ?Confirmed ?Last Taken ?Type irbesartan 150 1 tablet PO DAILY 02/24/22 05/25/24 Unknown History mg-hydrochlorothiazide 12.5 mg tablet sildenafil 100 mg tablet mg 05/30/24 Unknown History Allergies Allergy/AdvReac Type Severity Reaction Status Date / Time latex Allergy Itching Verified 05/30/24 16:03 Review of Systems Review of Systems: CONSTITUTIONAL: Denies fever, chills, or sweats. EYES: Denies visual changes, redness, or discharge. ENT: Denies rhinorrhea, congestion, sore throat, or otalgia. CARDIOVASCULAR: Denies chest pain, palpitations, or edema. RESPIRATORY: Denies cough or dyspnea. GASTROINTESTINAL: Denies abdominal pain, nausea, vomiting, or diarrhea. GENITOURINARY: Denies dysuria or hematuria. SKIN: Denies rash or itching. MUSCULOSKELETAL: Reports right knee pain. Denies other joint pain. NEUROLOGIC: Denies headache, numbness, dizziness, or weakness. PSYCHIATRIC: Denies anxiety or depression. [facility] Past Medical History Medical History Back pain GERD (gastroesophageal reflux disease) Sleep apnea Hypertension Surgical History Surgical History H/O esophagogastroduodenoscopy Previous back surgery fusion of L4 and L5 History of cholecystectomy Family History Family History Mother Patient's mother is in good health Father Patient's father is in good health Sibling Patient's sister is in good health Patient's brother is in good health Social History Social History Smoking status: Never smoker Alcohol intake: never Substance use: never Current Housing: Decline to Answer Concerned About Future Housing: Decline to Answer Difficulty Paying Gas/Electric Bills: Decline to Answer Difficulty Paying for Meds: Decline to Answer Currently Unemployed: Decline to Answer Education: Decline to Answer Difficulty w/ Childcare or Family Care: Decline to Answer Gender identity (if verbalized by the patient): Male Exam Narrative: GENERAL: Well-appearing, well-nourished, and in no acute distress. HEAD: Normocephalic, atraumatic. EYES: PERRLA and EOMI. ENT: Nares clear, no rhinorrhea or epistaxis. Mucous membranes moist. Oropharynx without tonsillar hypertrophy exudate or other lesions. Bilateral TMs pearly strong nonbulging NECK: Supple. No adenopathy or masses. No carotid bruits or JVD CHEST: Clear to auscultation. No respiratory distress. No wheezes rales or rhonchi HEART: Regular rate and rhythm. No murmur heard. Normal peripheral pulses. ABDOMEN: Soft, nontender, nondistended, normal active bowel sounds. EXTREMITIES: There is tenderness in the anterolateral aspect right knee. There is no crepitus or deformity. No gross swelling. Full range of motion intact. SKIN: Warm, dry, no rash. NEURO: No focal deficits. Alert and oriented x3. PSYCH: Normal mood and affect. Course Course Emergency Course: This is a 49-year-old male who presented for evaluation of right knee pain. X-ray negative for fracture but showed arthritic changes. Exam is consistent with strain. He was given ibuprofen. Advised on RICE therapy. provided with knee immobilizer. Follow-up with Ortho. Go to the ER for worsening symptoms. Patient in agreement with plan of care. Level of Care: Express Care Visit Vital Signs Vital signs: Vital Signs Temperature 36.2 C L 05/30/24 15:27 Pulse Rate 82 05/30/24 15:27 Respiratory Rate 16 05/30/24 15:27 Blood Pressure 130/84 05/30/24 15:27 Pulse Oximetry 100 12/22/24 15:27 Temperature 36.2 C L 05/30/24 15:27 Pulse Rate 82 05/30/24 15:27 Respiratory Rate 16 05/30/24 15:27 Blood Pressure 130/84 05/30/24 15:27 Pulse Oximetry 100 05/30/24 15:27 Medical Decision Making Vital Signs Vital Signs: Vital Signs Temperature 36.2 C L 05/30/24 15:27 Pulse Rate 82 05/30/24 15:27 Respiratory Rate 16 05/30/24 15:27 Blood Pressure 130/84 05/30/24 15:27 Pulse Oximetry 100 05/30/24 15:27 Temperature 36.2 C L 05/30/24 15:27 Pulse Rate 82 05/30/24 15:27 Respiratory Rate 16 05/30/24 15:27 Blood Pressure 130/84 05/30/24 15:27 Pulse Oximetry 100 05/30/24 15:27 Imaging Data Radiologist's impression: XR knee RT 3V DATE: 05/30/2024 16:18 INDICATION: Right lateral knee pain TECHNIQUE: 3 views COMPARISON: None FINDINGS: No fracture or dislocation or joint effusion. Minimal osteoarthritis of the patellofemoral and medial compartments. No radiopaque intra-articular loose body or, calcinosis. No periosteal reaction or bone destruction. IMPRESSION: Minimal patellofemoral and medial compartment osteoarthritis Discharge Plan Discharge Clinical Impression: Muscle strain of right knee Patient Disposition: Home, Self-Care Condition: Stable Instructions: Antibiotic Form, Knee Pain (ED), Knee Immobilizer (ED) Patient Language: Sinhala Prescriptions: No Action sildenafil 100 mg tablet irbesartan-hydrochlorothiazide 150-12.5 mg tablet 1 tablet PO DAILY Follow-up/Referrals: Brendon Shaffer MD [Primary Care Provider] - Tarun Sinclair MD [Physician] -
[2024-05-30] MEDS: IBUPROFEN 400 MG TABLET 800 MG PO (16:08)
== END 2024-05-30 16:57 | disposition home or self-care (01) ==
PROVIDERS: Emergency Provider Nurse Practitioner; PCP Emergency Medicine
DX: S86.911A Strain of unspecified muscle(s) and tendon(s) at lower leg level, right leg, initial encounter (principal); X58.XXXA Exposure to other specified factors, initial encounter; I10 Essential (primary) hypertension; K21.9 Gastro-esophageal reflux disease without esophagitis
CPT/HCPCS: 73562; 99213; A9270; G0463; L1830

== ENCOUNTER 2024-06-08 15:24 | Outpatient (CLI) | payer OTHER, SELFPAY ==
[2024-06-08 15:51] LABS: Anion Gap 3 mmol/L (4-12); Blood Urea Nitrogen 12 mg/dL (9-20); Calcium 9.5 mg/dL (8.4-10.2); Carbon Dioxide 29 mmol/L (22-30); Chloride 106 mmol/L (98-107); Estimated Glomerular Filt Rate > 60; Glucose 95 mg/dL (65-110); Potassium 4.1 mmol/L (3.4-5.0); Sodium 138 mmol/L (137-145)
== END 2024-06-08 15:25 | disposition home or self-care (01) ==
LOC: ANHLAB 15:25
PROVIDERS: PCP Emergency Medicine; Visit Provider Anesthesiology
DX: Z01.818 Encounter for other preprocedural examination (principal); Z79.899 Other long term (current) drug therapy
CPT/HCPCS: 36415; 80048

== ENCOUNTER 2024-06-16 03:10 | Day surgery (SDC) | payer OTHER, SELFPAY ==
[2024-06-07 08:42] VITALS: BMI 39.2
--- NOTE | 2024-06-07 08:47 | PC.NURSE ---
Report to the Outpatient Waiting Room, entrance under the green pavilion located off [facility], at time _1130_ on date _[id number]_. Planned Procedure Time: _130pm_.? Time changes happen often and if your time is changed the preop area will call you the afternoon before. - You and your visitor will be asked to self-screen and do not enter if you have any COVID symptoms. Please call surgeon if you need to reschedule. - A mask is optional within the hospital at this time. Patients may have clear liquids (water, carbonated beverages, clear teas, apple juice) until 3 hours prior to surgery with a maximum of 20 ounces. - No food from midnight until time of surgery and no smoking. This includes no chewing gum, candy or mints. Take only the following medications with a SIP of water on the morning of surgery: ___None DO NOT STOP ANY OF YOUR OTHER PRESCRIPTION MEDICATIONS PRIOR TO SURGERY EXCEPT THE FOLLOWING Medications to discontinue per physician ____None Please no make-up, nail bulgarian, hairspray, perfume, deodorant, or body powder the day of surgery.? No jewelry (including any body piercings) or valuables the day of surgery, leave them at home.? Please take a shower or bath the night before, or the morning of, surgery with an antibacterial soap.? Wear comfortable, loose fitting clothing.? - Jewelry must be removed prior to entering the operating room.? Rings and piercings that are not removed may be cut off. - The hospital will not accept responsibility for valuables.? - Please leave all valuables, including medications, at home the day of surgery. If you are going home after surgery, a licensed services delivery driver must drive you home.? - NO public transportation without another adult if you receive anesthesia. - We recommend that an adult stay with you for 24 hours following discharge. - We also recommend that you do not drive, make important decision, drink alcoholic beverages, or take any drugs that were not prescribed by your health care provider for at least 24 hours after your discharge time. Follow any additional instructions given to you from your surgeon. Telephone instructions given to _Frandy_and asked if any additional questions and then verbalized understanding. Patient advised to call surgeon office or pre surgery nurse liaison [phone] if any additional questions.
[2024-06-16] MEDS: LACTATED RINGERS 1,000 ML 30 ML IV CONT ×2 (12:00→14:45)
--- NOTE | 2024-06-16 12:15 | WPDHPUPDATE1 ---
History and Physical Update Update Date/Time: 06/16/24 12:15 History and Physical has been reviewed, including an updated exam of the patient. There are NO changes in the patient's condition. Risks, benefits, and alternatives have been discussed and questions answered. Patient agrees to proceed with procedure.
[2024-06-16 12:46] VITALS: BP 144/80; PULSE 50; RESP 16; TEMP 36.4; O2SAT 100
--- NOTE | 2024-06-16 13:19 | P.PNAN_ITS ---
Anes - Initial Pre Proc Eval Procedure: Operation Date: 06/16/24 13:30 Proposed Procedures p Excision Skin Lesion of Pubis - Jacob Villalba MD Date/Time: 06/16/24 13:19 Surgeon: Jacob Villalba MD Pre Op Diagnosis: Pigmented Mole Pubis Patient Data Age: 49 Gender: M Height: 1.79 m Weight: 137.9 kg Last Vital Signs Temp 36.4 C 06/16/24 12:46 Pulse 50 L 06/16/24 12:46 Resp 16 06/16/24 12:46 BP 144/80 H 06/16/24 12:46 Pulse Ox 100 06/16/24 12:46 O2 Del Method Room Air 06/16/24 12:46 Allergies Allergy/AdvReac Type Severity Reaction Status Date / Time latex Allergy Itching Verified 06/16/24 12:43 Home Medications ?Medication ?Instructions ?Recorded ?Confirmed ?Type irbesartan 150 1 tablet PO DAILY 02/24/22 06/07/24 History mg-hydrochlorothiazide 12.5 mg tablet sildenafil 100 mg tablet 100 mg PO DAILY PRN sexual activity 05/30/24 06/07/24 History Patient hx anesthesia problems: none Family hx anesthesia problems: none Results Review: All pre-operative results and documents have been reviewed as part of the pre- operative evaluation. [facility] Past Medical History Medical History Back pain GERD (gastroesophageal reflux disease) Sleep apnea Hypertension Surgical History Surgical History H/O esophagogastroduodenoscopy Previous back surgery fusion of L4 and L5 History of cholecystectomy Family History Family History Mother Patient's mother is in good health Father Patient's father is in good health Sibling Patient's sister is in good health Patient's brother is in good health Social History Social History Smoking status: Never smoker Alcohol intake: never Substance use: never Current Housing: Decline to Answer Concerned About Future Housing: Decline to Answer Difficulty Paying Gas/Electric Bills: Decline to Answer Difficulty Paying for Meds: Decline to Answer Currently Unemployed: Decline to Answer Education: Decline to Answer Difficulty w/ Childcare or Family Care: Decline to Answer Living arrangements: with family Gender identity (if verbalized by the patient): Male Spiritual care concerns: No Anes - Eval Final PreProcedure Day of Procedure 06/16/24 13:19 Patient weight: morbidly obese Heart: regular rate and rhythm Lungs: clear to auscultation Airway: Mallampati scale class II Neurological: alert and oriented Last oral intake: >/= 8 hours ASA classification: III Emergent: no Anesthetic plan: proceed Anesthesia type and monitoring: general GIVS and standard monitoring Results Review: All pre-operative results and documents have been reviewed as part of the pre-operative evaluation. Informed Consent: The patient's anesthetic plan and its attendant risks and benefits were discussed with the patient/family/POA. Questions were solicited and answers provided to the satisfaction of the patient/family/POA.
[2024-06-16] MEDS: ceFAZolin 3 GM/D5W 100 ML 100 ML IVPB (14:10)
[2024-06-16] MEDS: BUPIVACAINE/EPINEPHRINE 0.5% 10 ML VIAL INFILTRATE (14:22)
[2024-06-16 14:45] VITALS: BP 105/59; PULSE 93; RESP 16; O2SAT 98
--- NOTE | 2024-06-16 15:07 | W.PM.PROC2 ---
Procedure Note - Detailed Date of Procedure 06/16/24 Pre-op Diagnosis Pigmented Mole Pubis Post-op Diagnosis Same Procedure Performed Excision 1.4 cm skin lesion of the pubis with 1 mm margins, 1.6 cm excision. 7.5 cm layered closure Surgeon Jacob Villalba MD [employer] Marco Antonio Najera, [facility] Anesthesia General (G IV S) and Local Indications Patient has a brown exophytic but very symmetrical skin mole in the area of his pubis. It has a somewhat narrow base and frequently gets caught on clothing becoming irritated and painful. He is taken to surgery now for removal Findings Skin lesion, pigmented, smooth and symmetric Description of Procedure The patient was checked in the preoperative holding area. The lesion was reviewed. He was taken to surgery and anesthesia was introduced. The proposed transversely oriented excision was marked on the skin. Local anesthetic was infiltrated into the skin and the deeper subcutaneous tissues. The lesion was excised with full-thickness skin. At least a 1 mm margin was maintained all around the lesion. It was sent to pathology in formalin. The resulting wound was measured and was 7.5 cm. Cautery was used for hemostasis. The subcutaneous was closed with interrupted 4-0 Vicryl suture. Subcuticular interrupted 4-0 Vicryl skin suture were then placed. Finally a running 4-0 Monocryl skin suture was placed. The wound was dressed with Exofin surgical adhesive. Patient was then awakened and taken to outpatient surgery in good condition. Sponge and needle counts were correct x2. Estimated Blood Loss -2 Drains No Packing No Pathology Yes (Skin lesion pubic area) Complications None Condition Stable Disposition Same day [facility] Billing Surgery - Charge Forward: Surgery Billing (Excision 1.4 cm skin lesion of the pubis with 1 mm margins, 1.6 cm excision. 7.5 cm layered closure)
[2024-06-16 15:15] VITALS: BP 123/76; PULSE 67; RESP 16
[2024-06-16] MEDS: diphenhydrAMINE HCl INJ 50 MG/ML VIAL 12.5 MG IV PUSH (15:41)
[2024-06-16 15:45] VITALS: BP 123/92; PULSE 56; RESP 15
--- NOTE | 2024-06-16 15:57 | SUR.PHASEII ---
1530- Pt reporting generalized itching. No rash. Denies SOB, CP. Nasra Osullivan CRNA notified. New orders for RN to give 12.5mg Benadryl IVP, can repeat once if needed.
--- NOTE | 2024-06-16 15:58 | SUR.PHASEII ---
1558 - Pt reporting itching has improved. Denies pain or nausea. Denies SOB, CP.
[2024-06-16 16:11] VITALS: BP 124/77; PULSE 50; RESP 16
== END 2024-06-16 16:25 | disposition home or self-care (01) ==
PROVIDERS: PCP Emergency Medicine; Visit Provider Surgery
PROC: (CPT 11402; principal; 2024-06-16 13:30)
DX: L91.0 Hypertrophic scar (principal); K21.9 Gastro-esophageal reflux disease without esophagitis; I10 Essential (primary) hypertension; G47.30 Sleep apnea, unspecified; G89.18 Other acute postprocedural pain; E66.01 Morbid (severe) obesity due to excess calories; Z68.41 Body mass index [BMI] 40.0-44.9, adult; Z79.899 Other long term (current) drug therapy; Z98.890 Other specified postprocedural states; Z98.1 Arthrodesis status; Z90.49 Acquired absence of other specified parts of digestive tract
CPT/HCPCS: 11402; 12032; 88305; J0690; J1200; J2250; J2704; J3010; J7120

== ENCOUNTER 2024-07-14 09:40 | Emergency (ER) | payer OTHER, SELFPAY ==
[2024-07-14 10:43] VITALS: BP 108/69; PULSE 90; RESP 16; TEMP 36.6; O2SAT 96
--- NOTE | 2024-07-14 10:51 | ED_ITS ---
HPI - URI/Sore Throat General Chief Complaint: Upper Respiratory Infection Stated Complaint: SINUS CONGESTION/TIRED/SWEATING Time Seen by Provider: 07/14/24 09:40 Source: patient Mode of arrival: ambulatory Limitations: no limitations History of Present Illness HPI Narrative: Patient is a 49-year-old male who presents with 2 days of congestion, postnasal drip and intermittent cough. Denies any fever, chills, nausea, vomiting, diarrhea. Patient states he took Mucinex for the 1st time this morning. Related Data Home Medications ?Medication ?Instructions ?Recorded ?Confirmed ?Last Taken ?Type irbesartan 150 1 tablet PO DAILY 02/24/22 07/07/24 Unknown History mg-hydrochlorothiazide 12.5 mg tablet sildenafil 100 mg tablet 100 mg PO DAILY PRN sexual activity 05/30/24 07/07/24 Unknown History Allergies Allergy/AdvReac Type Severity Reaction Status Date / Time latex Allergy Itching Verified 07/14/24 10:54 Review of Systems Review of Systems: All systems reviewed & are unremarkable except as noted in HPI and below Constitutional: Constitutional: Denies body ache(s), Denies chills, Denies fatigue, Denies fever(s), Denies headache(s), Denies malaise and Denies weakness Eyes: Eyes: Denies blurry vision, Denies itchy eyes and Denies loss of vision ENT: Denies otalgia, Denies headache(s), Reports nasal congestion, Denies sinus pain and Denies sore throat Cardiovascular: Cardiovascular: Denies chest pain, Denies irregular heart rhythm and Denies dyspnea Respiratory: Respiratory: Reports cough and Denies dyspnea Gastrointestinal: Gastrointestinal: Denies abdominal pain, Denies diarrhea, Denies nausea and Denies vomiting Musculoskeletal: Musculoskeletal: Denies back pain, Denies myalgias and Denies arthralgias Integumentary/Breasts: Skin/Breast: Denies pruritus and Denies rash Neurologic: Denies headache(s), Denies loss of vision and Denies weakness Psychiatric: Psychiatric: Reports no additional psychiatric complaints Endocrine: Endocrine: Denies fatigue Allergic/Immunologic: Allergic/Immunologic: Denies itchy eyes PMFSH Past Medical History Medical History Back pain GERD (gastroesophageal reflux disease) Sleep apnea Hypertension Surgical History Surgical History S/P excision of skin lesion, follow-up exam 06/16/24 Excision 1.4 cm skin lesion of the pubis with 1 mm margins, 1.6 cm excision. 7.[address] Villalba H/O esophagogastroduodenoscopy Previous back surgery fusion of L4 and L5 History of cholecystectomy Family History Family History Mother Patient's mother is in good health Father Patient's father is in good health Sibling Patient's sister is in good health Patient's brother is in good health Social History Social History Smoking status: Never smoker Alcohol intake: never Substance use: never Current Housing: Decline to Answer Concerned About Future Housing: Decline to Answer Difficulty Paying Gas/Electric Bills: Decline to Answer Difficulty Paying for Meds: Decline to Answer Currently Unemployed: Decline to Answer Education: Decline to Answer Difficulty w/ Childcare or Family Care: Decline to Answer Living arrangements: with family Gender identity (if verbalized by the patient): Male Spiritual care concerns: No Comments At time of signature, agree with nursing past medical, surgical, social and family history. There is no relevant family history pertinent to the presenting complaint. Exam Const: General: cooperative, healthy appearing, comfortable, no acute distress and well nourished Nutritional Appearance: well nourished Orientation/consciousness: patient oriented x3 Limitations: no limitations HENMT: Head: normal to inspection, normocephalic and atraumatic Ears: hearing grossly normal bilaterally, external ears normal, TM's normal bilaterally, no periauricular adenopathy and Abnormal EAC present excessive cerumen bilateral Face/Nose/Sinus: Normal external nose present, Abnormal mu cous membranes and turbinates present erythematous bilateral and diffuse, normal facial exam, sinuses nontender and face symmetric Face and sinus: normal facial exam, sinuses nontender and face symmetric Mouth: Yes Normal oral and palatal mucosa present, Yes lip normal, Yes tongue normal, Yes Normal salivary glands and ducts present, Yes oropharynx normal and Yes moist mucous membranes Teeth and gingiva: dentition normal Throat: posterior oropharynx normal, tonsils normal and uvula midline Eyes: General: appearance normal, both eyes and all related structures Alignment and Position: alignment normal and position normal Periorbital: periorbital findings normal Eyelids: eyelids normal Pupils: Equal, round and reactive pupils present Neck: Neck: normal visual inspection, full ROM, no lymphadenopathy and supple Chest: Chest palpation & inspection: normal inspection of the chest and normal palpation of entire chest wall Resp: Effort & Inspection: normal respiratory effort and able to speak in complete sentences Auscultation: clear to auscultation bilaterally, no crackles, no rales, no rhonchi and no wheezes Cardio: Rate: regular rate Rhythm: regular rhythm Heart sounds: S1 normal heart sound present and S2 normal heart sound present GI: Inspection: normal to inspection Skin: General skin exam: normal color and no rashes or lesions noted Neuro: General: patient oriented x3 and moves all extremities Cranial nerves: Yes Equal, round and reactive pupils present Speech: normal speech Gait exam (Neuro): Normal gait present Extrem: General: normal to inspection, full ROM and no edema Psych: Appearance: grossly normal and well kempt Mental Status: mental status grossly normal Speech and movement: Normal speech and movement present Affect: normal affect Attitude: cooperative Thought process: Normal thought process present Course Course Emergency Course: Discharge instructions reviewed with patient, as well as provided in writing per nursing staff. The instructions also include specific and strict return/GO TO THE ER as well as f/u information. All questions have been answered, and the patient deny any further questions with discharge and discharge plan. Portions of this record may have been created with voice recognition software Level of Care: Express Care Visit Vital Signs Vital signs: Vital Signs Temperature 36.6 C 07/14/24 10:43 Pulse Rate 90 07/14/24 10:43 Respiratory Rate 16 07/14/24 10:43 Blood Pressure 108/69 07/14/24 10:43 Pulse Oximetry 96 07/14/24 10:43 Temperature 36.6 C 07/14/24 10:43 Pulse Rate 90 07/14/24 10:43 Respiratory Rate 16 07/14/24 10:43 Blood Pressure 108/69 07/14/24 10:43 Pulse Oximetry 96 07/14/24 10:43 Oxygen Delivery Room Air 07/14/24 10:47 Reviewed MDM - URI/Sore Throat MDM Narrative Medical decision making narrative: Pt well hydrated appearing, in no respiratory distress, hemodynamically stable. Recommend supportive care. The patient is stable at time of discharge the clinical impression was discussed and the patient was given the opportunity to ask questions, which were addressed as completely as possible given the information available at present. Anticipatory guidance and return to care precautions were discussed and the importance of primary care follow-up was stressed and encouraged. The patient voiced understanding of the plan, ana cations to return, and the need for follow-up. Differential diagnosis considered: Holguin virus, strep pharyngitis, allergic rhinitis, upper respiratory tract infection, sinusitis, rhinosinusitis, nasopharyngitis. viral pharyngitis, otitis media, otitis externa, otitis effusion, foreign body, cerumen impaction, viral syndrome, and influenza.? Exam findings show no acute concerns or changes; patient is non-toxic appearing and is in no distress.? Patient is appropriate for outpatient treatment and follow- up.? Medical Records Attestation: I reviewed the patient's medical records. Lab Data Attestation: I reviewed the patient's lab results. Labs: Lab Results 07/14/24 Range/Units 10:52 POC Influenza A Ag Negative (Negative) POC Influenza B Ag Negative (Negative) POC SARS CoV-2 Ag Positive (Negative) Discharge Plan Discharge Clinical Impression: COVID Patient Disposition: Home, Self-Care Condition: Stable Instructions: COVID-19 (Coronavirus Disease 2019) (ED) Additional Instructions: Your rapid COVID test was positive today. The following recommendations have been made by the CDC and local Health Departments, regarding COVID-19: -wear a mask for 5 days, as long as your fever free for 24 hours you could return to work -Majority of mild to moderate cases can be treated at home, without hospitalization or prescription medications You do not need a negative test result to return to work/school, assuming the above recommendations have been met and you are not symptomatic. Treating symptoms for mild to moderate cases may include: -Alternate Tylenol and Motrin per package directions for fever or pain. -Antihistamine medication such as Benadryl/Zyrtec at night and Claritin/Kathy during the day can help improve symptoms. -Use Flonase twice a day for 5 days then daily to help reduce the inflammation and dry up your sinuses. -You can also use Sudafed behind the pharmacy counter(12 or 24 hour). Be sure to drink plenty of water with these medications at least 8 ounces with every dose and it is important to drink 8 to 10 glasses of water per day. Water is a natural decongestant Take Motrin alternating with Tylenol for pain and fever alternating every 3 hours. 8 AM: Tylenol 11 AM: Ibuprofen 2 PM: Tylenol 5 PM: Ibuprofen 8 PM: Tylenol 11 PM: Ibuprofen 2 AM: Tylenol 5 AM: Ibuprofen Common Adult Symptoms: Fever/chills Cough Shortness of breath Fatigue, muscle aches Headache Loss of taste/smell Sore throat, congestion, runny nose GI symptoms (nausea, vomiting, diarrhea) Common Pediatric Symptoms Cough Fever GI symptoms (diarrhea, upset stomach, nausea, vomiting) Symptoms may differ in severity however, most cases do not require hospitalization. WHEN TO SEEK ER EVALUATION/TREATMENT: Severe/persistent shortness of breath or difficulty breathing Elevated, persistent fevers without resolution with fever-reducing medications Chest pain Extreme fatigue/lethargy Complications of pre-existing disease Patient Language: Montserratian Prescriptions: New Paxlovid 300 mg (150 mg x 2)-100 mg tablets,dose pack See Rx Instructions .ROUTE .COMPLEX Qty: 30 0RF Rx Instructions: take TWO 150 mg tablets of nirmatrelvir with ONE 100 mg tablet of ritonavir twice daily for 5 days No Action sildenafil 100 mg tablet 100 mg PO DAILY PRN (Reason: sexual activity) irbesartan-hydrochlorothiazide 150-12.5 mg tablet 1 tablet PO DAILY Follow-up/Referrals: Brendon Shaffer MD [Primary Care Provider] - 3 Days Stand Alone Forms: Work/School Release IP Time of Disposition: 11:08
[2024-07-14 10:58] LABS: EDCOVIDSCREEN Positive (Negative); EDINFLUASCREEN Negative (Negative); EDINFLUBSCREEN Negative (Negative)
== END 2024-07-14 11:11 | disposition home or self-care (01) ==
PROVIDERS: Emergency Provider Nurse Practitioner Family; PCP Emergency Medicine
DX: U07.1 COVID-19 (principal); I10 Essential (primary) hypertension; Z20.822 Contact with and (suspected) exposure to COVID-19
CPT/HCPCS: 87426; 87804; 99213; G0463

== ENCOUNTER 2024-07-27 07:33 | Outpatient (CLI) | payer OTHER, SELFPAY ==
--- NOTE | ~2024-07-27 | CT_ITS ---
CT of the Abdomen and Pelvis: Indication: Abdominal pain Technique: 2.5 mm axial scans were obtained through the abdomen and pelvis following intravenous adm inistration of 100 cc of Omnipaque 350. Dose reduction technique was used on this scan by utilizing a utomated exposure control and iterative reconstruction technique. The dose-length product (DLP) was 1 609.28 mGy-cm. Findings: Scans through the lung bases are unremarkable. The liver, spleen, pancreas, adrenals and kidneys are within normal limits. Cholecystectomy clips are present. No evidence of aortic aneurysm. No retroperitoneal lymphadenopathy. No bowel obstruction or bowel wall thickening. There is hazy infiltration the central mesentery with shotty lymph nodes, compatible with mesenteric panniculitis. Small fat-containing umbilical hernia no madhav. Images through the pelvis were performed. Urinary bladder unremarkable. No pelvic mass seen. No ascit es. Impression: Mesenteric panniculitis. Small fat-containing umbilical hernia. Reviewed, dictated and finalized at [facility]. OYMENT REPRESENTATIVE Impression: Mesenteric panniculitis. Small fat-containing umbilical hernia.
--- OUTSIDE RECORDS SUMMARY | 2024-07-27 07:38 | XMS_ITS | Referral Summary ---
Author Organization [facility] Address [address] [place] [address] Care Team Providers Care Welder Fitter Name Role Phone Brendon Shaffer MD Primary Care Provider [phone] Allergies Active Allergy Reactions Criticality Noted Date Comments Latex Itching Low 10/23/2017 Medications irbesartan-hydr ochlorothiazide (AVALIDE) 150-12.5 mg per tabletIndicatio ns:hypertension Take 1 tablet by mouth every morning [address] (NexIUM) 40 mg capsule Take 1 capsule (40 mg total) by mouth daily as needed (heartburn) Active ketorolac (TORADOL) 10 mg tablet Take 1 tablet (10 mg total) by mouth every 6 (six) hours as needed for pain 20 tablet 3 Active Additional Information Patient not taking.Reported on 12/19/2022 acetaminophen (TYLENOL) 500 mg tablet Take 1 tablet (500 mg total) by mouth every 6 (six) hours 56 tablet 3 Active oxyCODONE (ROXICODONE) 5 mg immediate release tabletIndicatio ns:Pain Take 1 tablet (5 mg total) by mouth every 4 (four) hours as needed for pain 22 tablet 3 Active Additional Information Patient not taking.Reported on 12/19/2022 methocarbamoL (ROBAXIN) 500 mg tablet Take 1 tablet (500 mg total) by mouth every 6 (six) hours as needed for muscle spasms 20 tablet 3 Active Additional Information Patient not taking.Reported on 12/19/2022 Active Problems Problem Noted Date Diagnosed Date Acute sinusitis 10/03/2022 10/03/2022 Disease of gallbladder, unspecified 10/03/2022 10/03/2022 Edema 10/03/2022 10/03/2022 Essential (primary) hypertension 10/03/2022 10/03/2022 Fatigue 10/03/2022 10/03/2022 Fatty liver 10/03/2022 10/03/2022 Gastro-esophageal reflux disease without esophag itis 10/03/2022 10/03/2022 Hemorrhoid 10/03/2022 10/03/2022 Hyperlipidemia 10/03/2022 10/03/2022 Male erectile dysfunction, unspecified 10/03/2022 Otalgia, bilateral 10/03/2022 10/03/2022 Pain in right shoulder 10/03/2022 Leukopenia 10/03/2022 10/03/2022 Polyp of colon 10/03/2022 10/03/2022 Sleep apnea 10/03/2022 10/03/2022 Humerus lesion, left 10/03/2022 Bone lesion 10/03/2022 Pancytopenia 08/31/2021 10/03/2022 Body mass index (bmi) 39.0-39.9, adult 8 10/03/2022 Anemia of unknown etiology 10/23/201710/03 Degeneration of lumbar or lumbosacral interverte bral disc 01/12/2013 10/03/2022 Lumbago 01/12/2013 10/03/2022 Social History Tobacco Use Types Packs/Day Years Used Date Smoking Tobacco: Never Smokeless Tobacco: Never AUDIT-C Answer Date Recorded Q1: How often do you have a drink containing alcohol? Never 11/12/2022 Q2: How many drinks containi ng alcohol do you have on a typical day when you are drinking? Patient does not drink Q3: How often do you have si x or more drinks on one occasion? Never 11/12/2022 Personal Safety Answer Date Recorded Have you ever been in or are you currently in a harmful physical or emotional relationship or is someone making you feel afraid or unsafe? Denies 11/12/2022 Sex and Gender Information Value Date Recorded Sex Assigned at Not on file Legal Sex Male 4:16 AM [employer] Gender Identity Not on file Sexual Orientation Not on file Last Filed Vital Signs Vital Sign Reading Time Taken Comments Blood Pressure 130/81 11/12/2022 11:10 AM CDT Pulse 79 11/12/2022 11:17 AM CDT Temperature 36.5 C (97.7 F) 11/12/2022 11:55 AM CDT Respiratory Rate 22 11/12/2022 11:17 AM CDT Oxygen Saturation 95% 11/12/2022 11:17 AM CDT Inhaled Oxygen Concentration - - Weight 124.7 kg (275 lb) 11/06/2022 3:40 PM CDT Height 180.3 cm (5' 11 ) 11/06/2022 3:40 PM CDT Body Mass Index 38.35 11/06/2022 3:40 PM CDT Plan of Treatment Not on file Insurance [facility] [id number] [facility] [id number] [employer] Care Teams Welder Fitter Relationship Specialty Start Date End Date Brendon Shaffer MD [address] [place] [address] PCP - General Family Medicine 12/04/20
--- OUTSIDE RECORDS SUMMARY | 2024-07-27 07:39 | XMS_ITS | Encounter Summary ---
Author Organization [facility] Address 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
--- OUTSIDE RECORDS SUMMARY | 2024-07-27 07:39 | XMS_ITS | Clinical Summary ---
Author Organization [facility] Address [address] [place] [address] Care Team Providers Care It Systems Analyst Name Role Phone Brendon Shaffer MD Primary Care Provider [phone] Source Comments [facility],non-owned Affiliates and Associated Physician Practices is amultiple site organization consisting of ambulatory clinics and hospital sitesin [place], [place], [place] and [place]. This disclosure is being madepursuant to the Care Everywhere program and may not contain all information available regarding this patient. Last updated 18.[facility] [employer] Allergies Active Allergy Reactions Criticality Noted Date Comments Latex Itching 10/23/2017 Medications * Be aware that medications may not be up to date on this document. Alwaysverify current medications with the patient. Medication Sig Dispensed Refills Start Date End Date Status losartan (COZAAR) 50 MG tablet Take 1 tablet by mouth every 24 hours 01/19/2020 Active Active Problems Problem Noted Date Diagnosed Date Degeneration of lumbar or lumbosacral interverte bral disc 01/12/2013 Lumbago 01/12/2013 Family History Relation Name Status Comments Brother Alive Father Alive Mother Alive Sister Alive Social History Tobacco Use Types Packs/Day Years Used Date Smoking Tobacco: Former Cigarettes Smokeless Tobacco: Never Alcohol Use Standard Drinks/Week Comments Not Currently 0 (1 standard drink = 0.6 oz pur e alcohol) Sex and Gender Information Value Date Recorded Sex Assigned at Not on file Gender Identity Not on file Sexual Orientation Not on file Last Filed Vital Signs Vital Sign Reading Time Taken Comments Blood Pressure 171/90 09/25/2020 1:45 PM CDT Pulse 79 09/25/2020 1:45 PM CDT Temperature 36.7 C (98.1 F) 09/25/2020 1:45 PM CDT Respiratory Rate - - Oxygen Saturation 100% 09/25/2020 1:45 PM CDT Inhaled Oxygen Concentration - - Weight 124.3 kg (274 lb) 09/25/2020 1:45 PM CDT Height 180.3 cm (5' 11 ) 09/25/2020 1:45 PM CDT Body Mass Index 38.22 09/25/2020 1:45 PM CDT Plan of Treatment Health Maintenance Due Date Last Done Comments COLOGUARD (AGES 45-75) - COL ON CA SCREENING 1973 COLON MONITORING 1973 COLONOSCOPY - COLON CA SCREENING 1973 CT COLONOGRAPHY - COLON CA SCREENING 1973 Colorectal Cancer Screening 1973 FIT - COLON CA SCREENING 1973 FLEX SIG - COLON CA SCREENING 1973 LIPID TESTING 1973 HIV SCREENING 02/16/1988 HEPATITIS C SCREENING 02/11/1991 DTAP/TDAP/TD VACCINES (1 - Tdap) 02/16/1992 HEPATITIS B VACCINE (1 of 3 - 19+ 3-dose series) 02/16/1992 SCREENING FOR DIABETES 08/28/2020 PNEUMOCOCCAL VACCINE 50+ (1 of 1 - PCV) 2023 ZOSTER VACCINE (1 of 2) 2023 COVID-19 VACCINE (1 - 2023-2 5 season) 2024 INFLUENZA VACCINE (#1) 2024 DEPRESSION SCREENING 06/09/2024 HIB VACCINE Aged Out No longer eligi ble based on patient's age to complete this topic HPV VACCINE Aged Out No longer eligi ble based on patient's age to complete this topic MENINGOCOCCAL (Group B) VACCINE Aged Out No longer eligible based on patient's age to complete this topic MENINGOCOCCAL VACCINE Aged Out No gene lynette eligible based on patient's age to complete this topic Insurance Payer Benefit Plan / Group Subscriber ID Effective Dates Phone Address Type [facility] OA [id number] Effective for all dates [address] [place] [address] HMO SELF PAY NO INSURANCE SELF PAY NO INSURANCE Effective for all dates [place], [place] Self Pay [facility] OA [id number] Effective for all dates [address] [place] [address] O [facility] [id number] 2007-Pre sent [address] [place] [address] O Care Teams It Systems Analyst Relationship Specialty Start Date End Date Brendon Shaffer MD PCP - General 02/02/20
--- OUTSIDE RECORDS SUMMARY | 2024-07-27 07:39 | XMS_ITS | Clinical Summary ---
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 Gender Identity Not on file Sexual Orientation Not on file Plan of Treatment Health Maintenance Due Date Last Done Comments DTAP/TDAP/TD VACCINES (1 - Tdap) 02/16/1992 HEPATITIS B VACCINES (1 of 3 - 19+ 3-dose series) 02/16/1992 COLORECTAL SCREENING 2018 Colorectal Cancer Screening 2018 FIT-DNA Q 3 years 2018 FIT/FOBT Q 1 year 2018 Flex Sig/CT Colonography Q 5 years 2018 ZOSTER VACCINE (1 of 2) 2023 INFLUENZA VACCINE (#1) 2024 PNEUMOCOCCAL VACCINE 0-64 YEARS Aged Out No longer eligible based on patient's age to complete this topic Care Teams Soft Tile Setter Relationship Specialty Start Date End Date Dhaval Yap MD [address] [place] [id number] PCP - General 09/25/05
--- OUTSIDE RECORDS SUMMARY | 2024-07-27 07:39 | XMS_ITS | Continuity of Care Document ---
Author Organization [facility] Address [address] [place] [address] [address] [place] [address] Phone Care Team Providers Care Flooring Sales Manager Name Role Phone Will Henao DO Unavailable Unavailable Advance Directives Directive Yes / No Effective Date File Name No Information Encounters Encounter Description Practice Location Reason(s) For Visit Diagnoses Date Provider Providers [facility] [address], [place], [place], [id number], [place] tel:[phone] [facility] No Information Earlene Garvey. [address] [facility], [place], [address], [place]. tel: [phone] Family History Family Member Type Diagnosis Age At Onset No Information Payers Payer name Insurance type Covered republican ID Authoriza tion(s) No Information Social History Type Description Quantity Date Captured Comments Sex Male Smoking Status No Information Chief Complaint And Reason For Visit No Information Reason For Referral Reason For Referral No Information History Of Present Illness Encounter Date Complaint History Of Prese nt Illness No Information Functional Status Date Functional Assessmen t No Information Instructions Date Instruction Additional Infor mation No Information Assessments Type Assessment Date No Information Patient Care Teams Name Effective Dates (start - stop) Status Members No Information
--- OUTSIDE RECORDS SUMMARY | 2024-07-27 07:39 | XMS_ITS | Clinical Summary ---
Author Organization [facility] Address [address] [place] [address] Phone Care Team Providers Care Comb Tender Name Role Phone Brendon Shaffer Primary Care Provider [phone] Willis Hubbard MD Unavailable [phone] Allergies Active Allergy Reactions Criticality Noted Date Comments Latex Itching 10/23/2017 Medications irbesartan-hydro CHLOROthiazide (AVALIDE) 150-12.5 MG Tablet Take 1 Tablet by mouth. 07/03/2021 Active Active Problems Problem Noted Date Diagnosed Date Pancytopenia 08/31/2021 Anemia of unknown etiology 10/23/2017 Degeneration of lumbar or lumbosacral interverte bral disc 01/12/2013 Immunizations Immunization Administration Dates Next Due Covid-19, Mrna, Lnp-s, Pf, 3 0 Mcg/0.3 Ml Dose (Wipster) 05/23/2021,08/09/2020,07/12/2020 TDAP Vaccine 12/23/2017,10/31/2016 Family History Medical History Relation Name Comments Diabetes Father Hypertension Sister Relation Name Status Comments Father Sister Social History Tobacco Use Types Packs/Day Years Used Date Smoking Tobacco: Former Cigarettes Q uit: 10/23/1997 Smokeless Tobacco: Never Alcohol Use Standard Drinks/Week Comments No 0 (1 standard drink = 0.6 oz pur e alcohol) PHQ-2 Answer Date Recorded Total Score - Questions 1-9 0 0 10/2021 Sex and Gender Information Value Date Recorded Sex Assigned at Not on file Legal Sex Male 12:26 AM CDT Gender Identity Not on file Sexual Orientation Not on file Last Filed Vital Signs Vital Sign Reading Time Taken Comments Blood Pressure 140/90 10/11/2021 1:53 PM CDT Pulse 70 10/11/2021 1:53 PM CDT Temperature 36.6 C (97.8 F) 10/11/2021 1:53 PM CDT Respiratory Rate 18 10/11/2021 1:53 PM CDT Oxygen Saturation 98% 10/11/2021 1:53 PM CDT Inhaled Oxygen Concentration - - Weight 125.2 kg (276 lb) 10/11/2021 1:53 PM CDT Height 180.3 cm (5' 11 ) 10/11/2021 1:53 PM CDT Body Mass Index 38.49 10/11/2021 1:53 PM CDT Plan of Treatment Health Maintenance Due Date Last Done Comments Hepatitis B Immunization (1 of 3 - 19+ 3-dose series) 02/16/1992 Colonoscopy 2018 Colorectal Cancer Screening 2018 Cologuard 2023 Immunochemical Fecal Occult Blood 2023 Pneumococcal Immunization (5 0+ years) (1 of 1 - PCV) 2023 Zoster Immunization (1 of 2) 2023 Influenza Immunization (#1) 2024 SARS-COV-2 Immunization ( - season) 2024 05/23/2021, 08/09/2020, 07/12/2020 Respiratory Syncytial Virus (RSV) Immunization (Adult) (1 - 1-dose 75+ series) 02/16/2048 DTaP/Tdap/Td Immunization Discontinued 2017, 10/31/2016 Hepatitis C Virus (HCV) Screening Completed 08/31/2021 Meningococcal Immunization (ACWY) Aged Out No longer eligible based on patient's age to complete this topic Pneumococcal Immunization Combined Aged Out No longer eligible based on patient's age to complete this topic Rotavirus Immunization Aged Out No lo nger eligible based on patient's age to complete this topic Procedures Procedure Name Priority Date/Time Associated Diagnosis Comments HEPATITIS C ANTIBODY Routine 08/31/2021 10:46 AM CDT Anemia of unknown etiology Pancytopenia (HCC) from Last 3 Months or Most Recently Relevant to Health Maintenance Results * HEPATITIS C ANTIBODY (08/31/2021 10:46 AM CDT) HEPATITIS C VIRUS AB SIGNAL CUTOFF <0.1 0.0 - 0.9 S/CO RATIO [facility] HEPATITIS C VIRUS AB COMMENT [facility] Comment: NEGATIVE NOT INFECTED WITH HCV, UNLESS RECENT INFECTION IS SUSPECTED OR OTHER EVIDENCE EXISTS TO INDICATE HCV INFECTION. EFFECTIVE OCTOBER 08, 2021 HCV ANTIBODY REFLEX TO MAE WILL BE MADE NON-ORDERABLE. THIS WILL AFFECT ANY CUSTOM PROFILE THAT INCLUDES [id number] HCV ANTIBODY REFLEX TO MAE. [facility] OFFERS ORDER CODE [id number] HCV ANTIBODY RFX TO QUANT PCR AN ALTERNATIVE. Blood 08/31/2021 10:4 6 AM CDT Narrative [facility] - 09/01/2021 7:11 AM CDT TESTING PERFORMED AT: [CB] [address], [address], PHONE: [phone], ERGONOMIST: MARTIN JUAREZ, PHD Release to patient->Immediate us Willis Hubbard MD CHEMISTRY ORDERABLES Final R esult [facility] from Last 3 Months or Most Recently Relevant to Health Maintenance Insurance [facility] OAP Care Teams Comb Tender Relationship Specialty Start Date End Date Brendon Shaffer [address] [place] [address] PCP - General Family Medicine 10/23/17 Willis Hubbard MD [address] [place] [phone] Consulting Physician Oncology 07/17/21
--- OUTSIDE RECORDS SUMMARY | 2024-07-27 07:39 | XMS_ITS | Encounter Summary ---
Author Organization [facility] Address [address] [place] [address] Phone Care Team Providers Care Director Of Video Analytics Name Role Phone Brendon Shaffer Primary Care Provider [phone] Willis Hubbard MD Unavailable Encounter Details Date Type Department Care Team (Late st Contact Info) Description 01/14/2022 Telephone [facility] [address] [address] Willis Hubbard MD [address] [address] Social History Tobacco Use Types Packs/Day Years Used Date Smoking Tobacco: Former Cigarettes Q uit: 10/23/1997 Smokeless Tobacco: Never Alcohol Use Standard Drinks/Week Comments No 0 (1 standard drink = 0.6 oz pur e alcohol) PHQ-2 Answer Date Recorded Total Score - Questions 1-9 0 10/2021 Sex and Gender Information Value Date Recorded Sex Assigned at Not on file Legal Sex Male 12:26 AM CDT Gender Identity Not on file Sexual Orientation Not on file documented as of this encounter Miscellaneous Notes * Telephone Encounter - Violetta Mehta - 01/14/2022 2:38 PM CDT PT FORGOT HE HAD APPT TODAY. STATED HE WOULD CALL BACK TO RESCHEDULE APPT AT A LATER DATE AND TIME. documented in this encounter Plan of Treatment Not on file documented as of this encounter Visit Diagnoses Not on filedocumented in this encounter Additional Health Concerns Assessment Noted Time PHQ-9 Depression Total Score: 0 10/24/19 18 1:37 PM CDT documented as of this encounter Care Teams Director Of Video Analytics Relationship Specialty Start Date End Date Edmund Brendon [address] [place] [address] PCP - General Family Medicine 10/23/17 Willis Hubbard MD [address] [place] [address] Consulting Physician Oncology 07/17/21 documented as of this encounter
--- OUTSIDE RECORDS SUMMARY | 2024-07-27 07:39 | XMS_ITS | Clinical Summary ---
Author Organization [facility] Address [address] [place] [address] Care Team Providers Care Specialist Field Engineer Name Role Phone Berndon Shaffer MD Primary Care Provider [phone] Social History Tobacco Use Types Packs/Day Years Used Date Smoking Tobacco: Never Assessed Sex and Gender Information Value Date Recorded Sex Assigned at Not on file Legal Sex Male 4:36 PM CDT Gender Identity Not on file Sexual Orientation Not on file Plan of Treatment Health Maintenance Due Date Last Done Comments Colorectal Cancer Screening Colonoscopy (10 Years) 1973 Annual Physical 02/16/1976 Hepatitis C 1991 DTaP, Tdap and Td Vaccines ( 1 - Tdap) 02/16/1992 Hepatitis B Vaccines (1 of 3 - 19+ 3-dose series) 02/16/1992 Zoster Vaccines (1 of 2) 2023 COVID-19 Vaccine (2 - 2023-2 5 season) 2024 05/23/2021 Influenza Adult (#1) 2024 Meningococcal B Vaccine Aged Out No l onger eligible based on patient's age to complete this topic Meningococcal Vaccine Aged Out No gene lynette eligible based on patient's age to complete this topic Pneumococcal Vaccine: Pediat rics (0 to 5 Years) and At-Risk Patients (6 to 64 Years) Aged Out No longer eligi ble based on patient's age to complete this topic RSV Immunizations Under 20 Months Aged Out No longer eligible based on patient's age to complete this topic Insurance [employer] [facility] Care Teams Specialist Field Engineer Relationship Specialty Start Date End Date Brendon Shaffer MD PCP - General FAMILY PRACTICE 09/20/21
--- OUTSIDE RECORDS SUMMARY | 2024-07-27 07:39 | XMS_ITS | Encounter Summary ---
Author Organization [facility] Address [address] [place] [address] Care Team Providers Care Management Recruiter Name Role Phone Dhaval Yap MD Primary Care Provider [phone] Encounter Details Date Type Department Care Team (Latest Contact Info) Description 09/13/2005 Outpatient Historical [facility] Jordan Acevedo MD [facility] [address] [address] (Work) Displacement of Lumbar Intervertebral Disc without Myelopathy (Primary Dx) Social History Tobacco Use Types Packs/Day Years Used Date Smoking Tobacco: Never Assessed Sex and Gender Information Value Date Recorded Sex Assigned at Not on file 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
--- OUTSIDE RECORDS SUMMARY | 2024-07-27 07:39 | XMS_ITS | Clinical Summary ---
Author Organization [facility] Address [address] [place] [address] Care Team Providers Care Environmental Services Worker Name Role Phone Brendon Shaffer MD Primary Care Provider [phone] Allergies Active Allergy Reactions Criticality Noted Date [...] bral disc 01/12/2013 10/03/2022 Lumbago 01/12/2013 10/03/2022 Surgical History Surgery Date Site/Laterality Comments CHOLECYSTECTOMY 06/09/2017 - 06/08/2018 BACK SURGERY 06/09/2005 - 06/08/2006 lumbar ROTATOR CUFF REPAIR 06/09/2021 - 06/08/2022 Right Medical History Medical History Date Comments Anemia Seasonal allergies Sleep apnea Social History Tobacco Use Types Packs/Day Years [...] on file Legal 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 Gender Identity Not on file Sexual Orientation Not on file Obstetrics History Last Filed Vital Signs Vital Sign Reading [...] 11/06/2022 3:40 PM CDT Plan of Treatment Health Maintenance Due Date Last Done Comments Colon Cancer Screening-Colonoscopy 1973 Depression Screening 1973 Hepatitis C Screening 1973 Prostate Cancer Screening-PSA 1973 Pneumococcal vaccine <65 (1 of 2 - PCV) 1979 Hepatitis B Screening 1991 Regular Well Visit/Exam 18-64 1991 Zoster Vaccine (1 of 2) 2023 Covid-19 Vaccine (4 - 2023- season) 2024 05/23/2021, 08/09/2020, 07/12/2020 Influenza Vaccine (#1) 2024 DTaP/Tdap/Td Vaccine (3 - Td or Tdap) 12/24/2027, 10/31/2016 Insurance [facility] [id number] [facility] [id number] [employer] Care Teams Environmental Services Worker Relationship Specialty Start Date End Date Brendon Shaffer MD [address] [place] [address] PCP - General Family Medicine 12/04/20
--- OUTSIDE RECORDS SUMMARY | 2024-07-27 07:39 | XMS_ITS | Referral Summary ---
Author Organization [facility] Address [address] [place] [address] Care Team Providers Care Air Conditioning Insulation Installer Name Role Phone Brendon Shaffer MD Primary Care Provider [phone] Source Comments [facility],non-owned Affiliates and Associated Physician Practices is amultiple site organization consisting of ambulatory clinics and hospital sitesin [place], [place], [place] and [place]. This disclosure is being madepursuant to the Care Everywhere program and may not contain all information available regarding this patient. Last updated 18.[facility] [employer] Allergies Active Allergy Reactions Criticality Noted Date [...] lumbosacral interverte bral disc 01/12/2013 Lumbago 01/12/2013 Social History Tobacco Use Types Packs/Day Years [...] 09/25/2020 1:45 PM CDT Plan of Treatment Not on file Insurance Payer Benefit Plan / Group Subscriber ID Effective Dates Phone Address Type [facility] OA [id number] Effective for all dates [address] [place] [address] HMO SELF PAY NO INSURANCE SELF PAY NO INSURANCE Effective for all dates [place], [place] Self Pay [facility] OA [id number] Effective for all dates [address] [place] [address] O [facility] OA [id number] 2007-Pre sent [address] [place] [address] O Care Teams Air Conditioning Insulation Installer Relationship Specialty Start Date End Date Brendon Shaffer MD PCP - General 02/02/20
--- OUTSIDE RECORDS SUMMARY | 2024-07-27 07:39 | XMS_ITS | Patient Health Summary ---
Author Organization [facility] Address [address] [place] [address] Care Team Providers Care Photoengraver Name Role Phone Brendon Shaffer MD Primary Care Provider [phone] Note from [facility],non-owned Affiliates and Associated Physician Practices is amultiple site organization consisting of ambulatory clinics and hospital sitesin [place], [place], [place] and [place]. This disclosure is being madepursuant to the Care Everywhere program and may not contain all information available regarding this patient. Last updated 18.[facility] Allergies * Latex(Itching) Medications * Be aware that medications may not be up to date on this document. Alwaysverify current medications with the patient. * losartan (COZAAR) 50 MG tablet(Started 01/19/2020) Take 1 tablet by mouth every 24 hours Active Problems Problem Noted Date Diagnosed Date [...] Mass Index 38.22 09/25/2020 1:45 PM CDT Procedures * MRI LUMBAR SPINE WWO CONTRAST(Performed 01/03/2013) Results * MRI SPINE LUMBAR WITH AND WITHOUT CONTRAST (01/03/2013) Anatomical Region Laterality Modality Spine Other Matias Gresham MD MR ORDERABLES Care Teams Photoengraver Relationship Specialty Start Date End Date Brendon Shaffer MD PCP - General 02/02/20
--- OUTSIDE RECORDS SUMMARY | 2024-07-27 07:40 | XMS_ITS | Continuity of Care Document ---
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 rotator cuff full and partial tear on right side. Pt denies any right shoulder pain prior to the injury. Pt missed work last night due to right shoulder pain shoulder pain1 Pt c/o acute ons et of right shoulder pain. Pt was at work last Friday and he slipped and fell backward on his back and right elbow and he jammed his right shoulder. Pt denies any back or elbow pain. He c/o right shoulder pain with stiffness, worse with movement Pt denies any radiculopathy or right arm numbness and tingling. Pt states that he has constant sharp right shoulder pain around AC joint area. Pt did go to Er and had negative right shoulder x ray. Ultrasound showed rotator cuff full and partial tear on right side. Pt denies any right shoulder pain prior to the injury physical Pt needs annual physical pt has HTN pt takes losartan .Pt stopped hctz on his own for unknown reason .His bp is high pt denies any chest pain or headache pt denies any edema. Pt has chronic low back pain with left sciatica with mild left lower extremity numbness and tingling. Pt already saw neurosurgeon who did not want to do surgery for him at this point .Pt denies any loss of bladder or bowel control. Pt not sure if he tried neurontin or not. Pt has chronic intermittent GERD. Pt takes nexium PRn only and doing ok. Pt was at work last Friday and he slipped and fell backward on his back and right elbow and he jammed his right shoulder. Pt denies any back or elbow pain. He c/o right shoulder pain with stiffness, worse with movement Pt denies any radiculopathy or right arm numbness and tingling. Pt states that he has constant sharp right shoulder pain around AC joint area. Pt did go to Er and had negative right shoulder x ray. ED Pt has ED. Pt de nies any testicular pain. Pt states that insurance no longer pay for cialis. Pt wants to try viagra. Pt denies any testicular pain or nodule or atrophy back pain1 Pt has chronic l ow back pain. Pt has left sciatica and left leg numbness and tingling Pt denies any loss of bladder control. Pt had NCS show which was benign. Needs to rule out higher involvement .Pt denies any neck pain or headache or any radiculopathy. Pt states that Pain management has not gone over results with him yet .Pt already saw neurosurgery at [facility] and he has dipak this again. Neurosurgery told him to bring NCS with him lumbago1 Pt has chronic m ild low back pain. Pt has left sciatica and left leg numbness. Pt is seeing pain management and doing PT currently. Pt will do NCS soon. Pt has never made dipak with neurosurgery. Pt states that his symptoms still is persistent. Pt denies any loss of bladder control. ED1 Pt has ED Pt nee ds refill of cialis. Pt denies any testicular pain or nodule or atrophy. Pt denies any chest pain with sex. 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 Pt has rather severe low back pain Pt states that she has 7/10 low back pain all the time, worse with movement. 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 Pt has not heard from neurosurgery yet. ED1 Pt has ED Pt nee ds refill of cialis. Pt denies any testicular pain or nodule or atrophy. Pt denies any chest pain with sex back pain1 Pt has chronic l ow back pain with left sciatica and left leg numbness and occasional weakness. Pt has rather severe low back pain Pt states that she has 7/10 low back pain all the time, worse with movement. 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 Pt wants FMLA form completed pain1 Pt has persisten t and chronic low back pain with left sciatica and left leg numbness and tingling for several months Pt has history of lumbar fusion L5/S1 level several years ago. Pt denies any recent injury Pt states that he feels dull ache around lumbar spine constantly, worse with movement or walking. Pt takes naproxen PRn which does help .Pt finished PT for two months 3 months ago which helped slightly but not anymore. Pt denies any leg atrophy or weakness. 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 lumbago1 Pt has persisten t and chronic low back pain with left sciatica and left leg numbness and tingling for several months Pt has history of lumbar fusion several years ago Pt denies any recent injury Pt states that he feels dull ache around lumbar spine constantly, worse with movement or walking. Pt takes naproxen PRn which does help .Pt finished PT for two months 3 months ago which helped slightly but not anymore. lumbago Pt has intermitt ent low back pain with left sciatica and left leg numbness and tingling for several months, Pt denies any injury. Pt denies any loss of bladder control. Pt states that prednisone did help slightly recently. Pt has dull ache, worse with activity and walking. Pt can not tolerate NSAID due to stomach issue. Pt notices mild weakness left leg but not all the time . physical Pt needs annual physical. Pt c/o sudden onset of numbness and tingling from left hip to left leg for 4 weeks Pt denies any numbness to left foot ,Pt states that his left leg feels slightly weaker than right side. Pt had lumbar fusion back in 2005. Pt denies any low back pain Pt has not had any left sciatica since 4 weeks ago pt denies any injury Pt denies any loss of bladder control. Pt also c/o tightness feeling left hand for 4 weeks. pt denies any neck pain pt denies any radiculopathy, Pt also feels intermittent tightness and pressure left side of chest area for 4 weeks. Pt denies any exertional chest pain Pt denies any sob Pt denies any calf pain . Pt went to ER last Friday due to above and he had negative EKG, chest x ray and troponin. Pt was slightly anemic which has been stable. Pt had colonoscopy done recently and he has benign polyp and also internal hemorrhoid Pt does notice mild intermittent bright red blood per rectum due to hemorrhoid. Pt takes nexium 2-3 per month for GERD Pt also uses cpap nightly. Pt feels more energy Pt takes losartan and HCTZ and his BP is stable. pt states that sometimes he has urinary urgency and frequency for past several month Pt denies any dribbling or any trouble with difficulty ,Pt denies waking up at night to urinate colon polyp1 Pt has tubular a denoma from last year Pt denies any GI issue or bleeding. Pt has not done colonoscopy yet ED Pt denies and te sticular pain pt denies any penile discharge. Pt has ED. 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 Pt is seeing ENT now and he is using CPAP nightly and he feels more energy. Pt feels better rested and less snoring HTN Pt has HTN Pt ta kes losartan/hct but he is still noncompliant. Pt only takes it randomly He has not taken it for 3-4 days. pt denies any chest pain or headache. Currently losartan/hct is out of stock. HTN Pt has HTN. Pt i s noncompliant with losartan. Pt refuses to take it daily despite being to told to do that. Pt denies any chest pain or headache shoulder pain1 Pt c/o right ana rosa ulder pain x 2 weeks. Pt thinks that he injured right shoulder while pulling vacuum while at work two weeks ago. Pt did not have pain while at work and he felt some right shoulder pain the day after. Pt denies any neck pain or any radiculopathy. Pt states that he has been taking some OTC NSAID PRn which helps slightly. pt had right shoulder ultrasound done which showed full thickness tear of the supraspinatus tendon and also partial tear of the subscapularis tendon and also possible full tear of the infraspinatus tendon. pt has normal ROM right shoulder pt denies any shoulder instability. shoulder pain1 Pt c/o acute ons et of right shoulder pain since yesterday morning Pt denies any injury. Pt denies any chest pain. pt denies radiation of pain to right arm or neck. Pt has sharp pain, worse with shoulder movement. Pt went to express care last night and he was recommend to go to Er to rule out coronary issue but he signed out AMA. He states that pain improving with some ibuprofen Pt denies any diaphoresis. nausea. Pt denies any chest pain colon polyp1 Pt has large col on polyp. Pt denies any rectal bleeding or change of any bowel pattern. sleep apnea1 Pt just had slee p study done via ENT and he does have sleep apnea and he is waiting for CPAP set up. He already had CPAP titration done HTN Pt is noncomplia nt with losartan/hctz and he again is not taking it. His BP is high Pt does not take his BP med despite being told to take BP meds multiple times. Patient denies any chest pain or headache. HTN Pt has HTN. Pt t akes losartan/hctz and his BP is borderline Pt denies any chest pain or headache sleep apnea1 Pt feels fatigue Pt does snore Pt denies any sob Pt still has not done sleep study yet colon polyp1 Pt has large col on polyp. Pt denies any gi bleeding Pt supposes to do colonoscopy soon ear pain1 Pt notices bilat eral ear pain when blowing nose for several days Pt does have mild sins congestion. Pt denies any sore throat. Pt denies any fever, chill, headache ED Pt has ED. Pt de nies any testicular pain or atrophy PHysical Pt needs annual physical. Pt has HTn. Pt is noncompliant with BP med. Pt does not take losartan/hctz. his BP is high. Pt also does not use CPAP nightly. Pt has anemia. Pt saw hematology but he did not follow up. Pt has esophagitis and also large polyp. pt was told to repeat colonoscopy in 12 months from last scope. pt take nexium PRn currently. Pt denies any herbert GERD Pt also wants cialis for ED HTN Pt has HTn. Pt i s noncompliant with norvasc. Pt has not started to take norvasc yet. Pt denies any chest pain or headache GERD1 Pt has GERd. Pt had benign EGD Pt is on nexium 40 mg daily now. Pt has gastritis. Pt has large colon polyp removed .He has not had any rectal bleeding since the polyp removal hemorrhoid1 Pt has moderate size internal hemorrhoid Pt was told that it is not big enough for removal Pt has not had any rectal bleeding since removing the large polyp . edema1 Pt has trace estevan ma on both legs. Pt denies any leg pain back pain1 Pt lifted a love seat 4 weeks ago and he has been having low back pain since. Pt c/o left sciatyica and left let numbness. Pt denies any loss of bladder control. Pt states that the pain comes and goes and sometimes the leftt leg feels burning Pt went to ER early this week and no xray was done He was given ibuprofen and flexeril without much relieve. leukopenia1 Pt has mild leuk openia. Pt seen hematology and he will follow up Pt was told that he has benign leukopenia. HTN Pt has HTn. pt i s not taking norvasc. Pt is noncompliant. pt denies any chest pain or headache GERD1 Pt has chronic G ERD Pt takes protonix and he takes PRn. Pt had EGD and colonoscopy done recently. EGD showed esophageal stricture and he is s/p dilation. Pt also was told he has gastritis. Pt denies any GERd or dysphagia with protonix. Pt states that colonoscopy showed benign polyp and hemorrhoid per patient. anemia1 Pt is mildly ane jaylin. Pt denies any dizziness. Pt notices intermittent bright red blood per rectum for two years. Pt denies any abd pian leukopenia1 Pt has mild leuk openia. Pt has normal neutrophile. Pt is not neutropenia. pt does not have any recurrent infection HLP Pt has mild high TG. HTN Pt has mild HTn today. His BP has been high on multiple occasions. Pt denies any chest pain or headache. sinus1 Pt c/o sinus con gestion with purulent sinus drainage for one week. Pt went to urgent care last week and had flonase but did not help Pt denies any fever, chilll pt denies ay headache GERD1 Pt has chronic G ERD and he has some dysphagia. pt had EGD done several years ago and had his esophagus stretched 5 years ago. Pt feels that he feels food stuck in his throat sometimes. ED1 Pt has ED. Pt blanco s good libido Pt could not afford viagra or cialis. Pt still has not done lab yet. pt denies any testicular pain or nodule fatigue1 Pt has chronic f atigue. Pt has poorly controlled sleep apnea. Pt never followed up with sleep physician. Pt only uses CPAP occasionally anemia1 Pt has mild anem ia on recent lab. pt denies any dizziness HTN pt has mild HTn. Pt denies any chest pain or headache HTN Pt has HTN. Pt d enies any chset apin or headache fatty liver1 Pt has fatty laura er. Pt denies any abd pain. 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 Pt only uses CPAP on the weekend Pt has diffiuclt work schedule. 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 Nov-20-2017 ED1 Pt has ED. Pt de natanael any testicuarl pain or nodule. Pt states that cialis 20 mg PRn works much better for his ED HTN Pt has mild HTn today. Pt denies any histoiry of HTn. Pt denies any chest pain or headache back pain1 Pt has chornic l ow back pain, Pt denies any worsening pain. Pt denies any loss of bladder control. Pt did not do PT or MRi. Pt states that his back pain resolved after steroid for now. gallbladder disease1 pt has gall gladder disease. Pt has been to ER multiple times and was diagnosed with cholecystitis recently. He supposes to ahve outpatient gallbladder surgery but he did not go through with the procedure. Pt has intermittent right upper quadrant pain. Pt denies any acute pain Pt states that pain is worse with food. PHysical Pt needs annual physical. Pt has chronic low back pain for two months. Pt denies any injury. Pt denies any sciatica. Pt denies any loss of bladder control. Pt had lumbar xray done whic showed moderate lumbar spondylosis. Pt tried chiropractice treatment without improvement. Pt states that the lumbar pain comes and goes. Pt feels stifiness. Pt states that the pain is dull and sharp and is related to activity and walking. However, sometimes he has pain with just lying down. Pt denies any waking up at night with back pain. Pt states that he sometimes feels the urge to urinate and it is hard for him to control his urine. Pt denies any urinary incontinence or lose of bowel or bladder cotnrol. Pt has history of ED. Pt takes cialis pRN. Pt doing ok with cialist. Pt takes cialis 5 mg PRn which works ok per patient Pt denies any other complaints Instructions Date Instruction Additional Infor mation Special diet education Related t o Body mass index (BMI) 39.0-39.9, adult Increase physical activity Relat ed to Anemia Weight management Related to Ane fabian Special diet education Related t o Body mass index (BMI) 40.0-44.9, adult Increase activity. Related to Es sential (primary) hypertension Follow a low sodium diet. Relate d to Essential (primary) hypertension Special diet education Related t o Body mass index (BMI) 40.0-44.9, adult Weight management Related to Ess ential (primary) hypertension Increase physical activity Relat ed to Essential (primary) hypertension Special diet education Related t o Body mass index (BMI) 39.0-39.9, adult Special diet education Related t o Body mass index (BMI) 40.0-44.9, adult Increase physical activity Relat ed to Encounter for general adult medical exam w abnormal findings Weight management Related to Enc ounter for general adult medical exam w abnormal findings Special diet education Related t o Body mass index (BMI) 40.0-44.9, adult Avoid provocative fo ods: citrus, alcohol, coffee, chocolate, mints. Related to GERD w/o esophagitis Eat smaller meals, n o eating three hours prior to bedtime. Related to GERD w/o esophagitis Elevate head of bed prior to sle ep. Related to GERD w/o esophagitis Eat smaller meals, n o eating three hours prior to bedtime. Related to GERD w/o esophagitis Avoid provocative fo ods: citrus, alcohol, coffee, chocolate, mints. Related to GERD w/o esophagitis Special diet education Related t o Body mass index (BMI) 39.0-39.9, adult Elevate head of bed prior to sle ep. Related to GERD w/o esophagitis Special diet education Related t o Body mass index (BMI) 40.0-44.9, adult Increase physical activity Relat ed to Anemia Weight management Related to Ane fabian Special diet education Related t o Body mass index (BMI) 39.0-39.9, adult Increase activity. Related to Es sential (primary) hypertension Follow a low sodium diet. Relate d to Essential (primary) hypertension Increase physical activity Relat ed to Sleep apnea Weight management Related to Sle ep apnea Prescribed Activity and Exercise Education Related to Dietary Surveillance and Counseling Prescribed Diet Educ ation/Lifestyle Education Regarding Diet Related to Dietary Surveillance and Counseling Prescribed Activity and Exercise Education Related to Dietary Surveillance and Counseling Prescribed Diet Educ ation/Lifestyle Education Regarding Diet Related to Dietary Surveillance and Counseling Increase physical activity Relat ed to Dietary surveillance and counseling Weight management Related to tary surveillance and counseling Prescribed Activity and Exercise Education Related to Dietary Surveillance and Counseling Prescribed Diet Educ ation/Lifestyle Education Regarding Diet Related to Dietary Surveillance and Counseling Increase physical activity Relat ed to Lumbago Weight management Related to Lum bago Assessments Type Assessment Date assessment Polyp of colon assessment Male erectile dysfunction, unspe cified assessment Essential (primary) hypertension assessment GERD w/o esophagitis assessment Paresthesia of skin assessment Epidermal cyst Mental Status Date Cognitive Assessment Orientation - [place] ed to time, place, person, situation.
[2024-07-27 07:54] LABS: Estimated Glomerular Filt Rate > 60
== END 2024-07-27 07:34 | disposition home or self-care (01) ==
PROVIDERS: PCP Emergency Medicine; Visit Provider Surgery
DX: K42.9 Umbilical hernia without obstruction or gangrene (principal); K65.4 Sclerosing mesenteritis
CPT/HCPCS: 74177; Q9967

== ENCOUNTER 2024-08-04 13:42 | Emergency (ER) | payer OTHER, SELFPAY ==
--- NOTE | 2024-08-04 13:45 | ED.URI ---
HPI - URI/Sore Throat General Chief Complaint: Upper Respiratory Infection Stated Complaint: NASAL CONGESTION/THROAT Time Seen by Provider: 08/04/24 13:46 Source: patient and RN notes reviewed Mode of arrival: ambulatory Limitations: no limitations History of Present Illness HPI Narrative: 49-year-old male presents with concern for 4 day history of sinus congestion, drainage, fullness. He reports he has been using Sudafed and a nasal spray without relief. He denies fever, body aches, chills, sweats. Denies sore throat or cough MD elicited complaint: rhinorrhea and nasal congestion Related Data Home Medications ?Medication ?Instructions ?Recorded ?Confirmed ?Last Taken ?Type irbesartan 150 1 tablet PO DAILY 02/24/22 08/04/24 Unknown History mg-hydrochlorothiazide 12.5 mg tablet sildenafil 100 mg tablet 100 mg PO DAILY PRN sexual activity 05/30/24 08/04/24 Unknown History Allergies Allergy/AdvReac Type Severity Reaction Status Date / Time latex Allergy Itching Verified 08/04/24 13:48 Review of Systems Review of Systems: CONSTITUTIONAL: Denies malaise, chills, sweats, or fever. EYES: Denies visual changes, redness, or discharge. ENT: Reports rhinorrhea, congestion, sinus pain. Denies otalgia and sore throat. CARDIOVASCULAR: Denies chest pain, palpitations, or edema. RESPIRATORY: Denies cough. Denies dyspnea. GASTROINTESTINAL: Denies abdominal pain, nausea, vomiting, diarrhea SKIN: Denies rash or itching. MUSCULOSKELETAL: Denies myalgia. NEUROLOGIC: Denies headache. All systems reviewed & are unremarkable except as noted in HPI and below PMFSH Past Medical History Medical History Back pain GERD (gastroesophageal reflux disease) Sleep apnea Hypertension Surgical History Surgical History S/P excision of skin lesion, follow-up exam 06/16/24 Excision 1.4 cm skin lesion of the pubis with 1 mm margins, 1.6 cm excision. 7.[address] Villalba H/O esophagogastroduodenoscopy Previous back surgery fusion of L4 and L5 History of cholecystectomy Family History Family History Mother Patient's mother is in good health Father Patient's father is in good health Sibling Patient's sister is in good health Patient's brother is in good health Social History Social History Smoking status: Never smoker Alcohol intake: never Substance use: never Current Housing: Decline to Answer Concerned About Future Housing: Decline to Answer Difficulty Paying Gas/Electric Bills: Decline to Answer Difficulty Paying for Meds: Decline to Answer Currently Unemployed: Decline to Answer Education: Decline to Answer Difficulty w/ Childcare or Family Care: Decline to Answer Living arrangements: with family Gender identity (if verbalized by the patient): Male Spiritual care concerns: No Comments At time of signature, agree with nursing past medical, surgical, social and family history. There is no relevant family history pertinent to the presenting complaint Exam Narrative: GENERAL: Well-appearing, well-nourished, and in no acute distress. HEAD: Normocephalic EYES: PERRLA, conjunctivae clear ENT: Nares clear, turbinates edematous and erythematous. Mucous membranes moist. TM pearly strong with dull light reflex bilaterally; no tragal tenderness. Oropharynx not erythematous without lesions. Tonsils not enlarged and without exudate, no drooling, no hoarseness, no trismus, uvula midline. NECK: Supple. No lymphadenopathy CHEST: Clear to auscultation, breath sounds equal. No wheezing, rhonchi, rales, or stridor. No respiratory distress, speaks in full sentences. HEART: Regular rate and rhythm. No murmur heard. SKIN: Warm, dry, no rash. NEURO: Alert and oriented x3. PSYCH: Normal mood and affect Course Course Emergency Course: Patient is aware of diagnosis, understands and agrees to treatment plan. Anticipatory guidance given. Patient agrees to follow-up as directed and is aware of reasons to seek care at the emergency department. Portions of this record may have been created with voice recognition software Level of Care: Express Care Visit Vital Signs Vital signs: Reviewed. MDM - URI/Sore Throat MDM Narrative Medical decision making narrative: Differential diagnosis considered: Holguin virus, strep pharyngitis, allergic rhinitis, upper respiratory tract infection, sinusitis, rhinosinusitis, nasopharyngitis. viral pharyngitis, otitis media, otitis externa, pneumonia, bronchitis, viral cough syndrome, viral syndrome, and influenza. Exam findings show no acute concerns or changes; patient is non-toxic appearing and is in no distress. Patient is appropriate for outpatient treatment and follow-up. Lab Data Attestation: I reviewed the patient's lab results. Critical Care Time Critical Care Time Critical Care Time: No Discharge Plan Discharge Clinical Impression: Upper respiratory infection Patient Disposition: Home, Self-Care Condition: Stable Instructions: Upper Respiratory Infection (ED) Additional Instructions: Symptomatic treatment of a sinus infection aims to relieve symptoms. These treatments do not shorten the duration of illness. Nonprescription pain medications, such as acetaminophen (eg, Tylenol) or ibuprofen (eg, Motrin, Advil), are recommended for pain. Flushing the nose and sinuses with a saline solution several times per day has been proven to decrease pain associated with congestion and shorten the duration of symptoms. Nasal steroids (such as Flonase, 2 sprays in each nostril daily) can help to reduce swelling inside the nose, usually within two to three days. These drugs have few side effects and relieve symptoms in most people. Oral decongestants (pseudoephedrine and phenylephrine) may be helpful if you have associated symptoms of ear pain or fullness. Nasal decongestant sprays, including oxymetazoline (Afrin) and phenylephrine (Flaquito-Synephrine), can be used to temporarily treat congestion. However, these sprays should not be used for more than two to three days due to the risk of rebound congestion (when the nose becomes congested constantly unless the medication is used repeatedly), possible addiction, and long-term consequences of frequent use, including persistent nasal dryness and crusting, which is very difficult to treat once it has developed. Medications to thin secretions (such as guaifenesin) may help to clear mucus. Please follow-up with your primary care doctor in the next 1-2 days. If you cannot follow-up with your primary care doctor please go to the ED for any urgent issues. If you have any worsening of symptoms or any other concerns please go to the ED immediately. Patient Language: Cook Islander Prescriptions: New methylprednisolone [Medrol (Manny)] 4 mg tablets,dose pack See Rx Instructions .ROUTE .COMPLEX Qty: 21 0RF Rx Instructions: orally per package directions No Action sildenafil 100 mg tablet 100 mg PO DAILY PRN (Reason: sexual activity) irbesartan-hydrochlorothiazide 150-12.5 mg tablet 1 tablet PO DAILY Follow-up/Referrals: Brendon Shaffer MD [Primary Care Provider] - Time of Disposition: 14:06
[2024-08-04 13:51] VITALS: BP 128/77; PULSE 88; RESP 16; TEMP 36.1; O2SAT 100
== END 2024-08-04 14:09 | disposition home or self-care (01) ==
PROVIDERS: Emergency Provider Nurse Practitioner; PCP Emergency Medicine
DX: J06.9 Acute upper respiratory infection, unspecified (principal); I10 Essential (primary) hypertension; K21.9 Gastro-esophageal reflux disease without esophagitis
CPT/HCPCS: 99213; G0463

== ENCOUNTER 2024-08-15 15:16 | Emergency (ER) | payer OTHER, SELFPAY ==
--- NOTE | ~2024-08-15 | XR_ITS ---
EXAMINATION: XR chest 2V Exam Date/Time: 08/15/2024 15:50 CDT HISTORY: cough and wheezing Comparison: 10/29/2023. RESULT: Lines, tubes, and devices: Cholecystectomy clips. Lungs and pleura: Left hemidiaphragm elevation, otherwise clear. Cardiomediastinal silhouette: Stable. Other: No acute osseous or upper abdominal finding. IMPRESSION: No acute cardiopulmonary process. Chronic left hemidiaphragm elevation. Consider nonemergent fluorosc opic sniff test to evaluate for diaphragmatic paralysis. Reviewed, dictated and finalized at location K. IMPRESSION: No acute cardiopulmonary process. Chronic left hemidiaphragm elevation. Conside r nonemergent fluoroscopic sniff test to evaluate for diaphragmatic paralysis.
[2024-08-15 15:26] VITALS: BP 131/86; PULSE 120; RESP 16; TEMP 36.3; O2SAT 99
--- NOTE | 2024-08-15 15:39 | ED_ITS ---
HPI - General Adult General Chief complaint: Upper Respiratory Infection Stated complaint: deep cough, nose stuff up Time Seen by Provider: 08/15/24 15:39 Source: patient Mode of arrival: ambulatory Limitations: no limitations History of Present Illness HPI narrative: 49-year-old male patient presents to the [facility] with complaints of a cough for the past 3 days and continuous sinus congestion. Patient was diagnosed with COVID on July 14 of this year was given Paxil low vent. Patient was seen about 2 weeks ago in the Urgent Care for ongoing sinus congestion was given a Medrol Dosepak. Patient states he completed all that and states that he still continues to have congestion, some body aches and chills denies any fevers that he is aware of and a cough that has been going on for the last 3 days. Denies any chest pain or shortness of breath at this time. Patient states he does wear CPAP and is concerned that there might be something in the CPAP causing his issues. Related Data Home Medications ?Medication ?Instructions ?Recorded ?Confirmed ?Last Taken ?Type irbesartan 150 1 tablet PO DAILY 02/24/22 08/04/24 Unknown History mg-hydrochlorothiazide 12.5 mg tablet sildenafil 100 mg tablet 100 mg PO DAILY PRN sexual activity 05/30/24 08/04/24 Unknown History Allergies Allergy/AdvReac Type Severity Reaction Status Date / Time latex Allergy Itching Verified 08/15/24 15:34 Review of Systems Review of Systems: CONSTITUTIONAL: Denies fever, Positive body aches and chills, or sweats. EYES: Denies visual changes, redness, or discharge. ENT: positive rhinorrhea, congestion, denies sore throat, denies otalgia. CARDIOVASCULAR: Denies chest pain, palpitations, or edema. RESPIRATORY: positive cough denies dyspnea. GASTROINTESTINAL: Denies abdominal pain, nausea, vomiting, or diarrhea. GENITOURINARY: Denies dysuria or hematuria. SKIN: Denies rash or itching. MUSCULOSKELETAL: Denies back pain, joint pain, or myalgia. NEUROLOGIC: Denies headache, numbness, or weakness. PSYCHIATRIC: Denies anxiety or depression. [facility] Past Medical History Medical History Back pain GERD (gastroesophageal reflux disease) Sleep apnea Hypertension Surgical History Surgical History S/P excision of skin lesion, follow-up exam 06/16/24 Excision 1.4 cm skin lesion of the pubis with 1 mm margins, 1.6 cm excision. 7.[address] Villalba H/O esophagogastroduodenoscopy Previous back surgery fusion of L4 and L5 History of cholecystectomy Family History Family History Mother Patient's mother is in good health Father Patient's father is in good health Sibling Patient's sister is in good health Patient's brother is in good health Social History Social History Smoking status: Never smoker Alcohol intake: never Substance use: never Current Housing: Decline to Answer Concerned About Future Housing: Decline to Answer Difficulty Paying Gas/Electric Bills: Decline to Answer Difficulty Paying for Meds: Decline to Answer Currently Unemployed: Decline to Answer Education: Decline to Answer Difficulty w/ Childcare or Family Care: Decline to Answer Living arrangements: with family Gender identity (if verbalized by the patient): Male Spiritual care concerns: No Comments At the time of my signature I agree with nursing past medical history, surgical, social, and family history. There is no relevant family history pertinent to the presenting complaint. Exam Narrative: GENERAL: Well-appearing, well-nourished, and in no acute distress. HEAD: Normocephalic, atraumatic. EYES: PERRLA and EOMI. ENT: Nares with erythema and edema noted bilaterally, no rhinorrhea or epistaxis. Mucous membranes moist. posterior pharynx with no erythema, tonsillar enlargement, exudates or lesions present. Bilateral TMs are clear with no erythema or foreign body to the canal there is some cerumen noted to the left canal NECK: Supple. No lymphadenopathy CHEST: slight wheezing noted to the right lower lobe on auscultation with slight crackle. No respiratory distress. HEART: Regular rate and rhythm. No murmur heard. Normal peripheral pulses. ABDOMEN: Soft, nontender, nondistended, normal active bowel sounds. EXTREMITIES: Normal range of motion. No edema. SKIN: Warm, dry, no rash. NEURO: No focal deficits. Alert and oriented x3. Course Course Level of Care: Express Care Visit Reevaluation(s) Reevaluation #1: re-evaluated patient notified him that he is positive today for influenza A. The x-ray does not show any pneumonia at this time. Discussed with patient to take the Tamiflu as prescribed and Tessalon Perles as needed for cough. Discussed with patient that he can return to work or school once symptoms are resolving. Patient verbalized understanding denies any other questions or concerns at this time. Date: 08/15/24 Time: 16:19 Vital Signs Vital signs: Vital Signs Temperature 36.3 C L 08/15/24 15:26 Pulse Rate 120 H 08/15/24 15:26 Respiratory Rate 16 08/15/24 15:26 Blood Pressure 131/86 08/15/24 15: Pulse Oximetry 99 08/15/24 15:26 Temperature 36.3 C L 08/15/24 15:26 Pulse Rate 120 H 08/15/24 15:26 Respiratory Rate 16 08/15/24 15:26 Blood Pressure 131/86 08/15/24 15:26 Pulse Oximetry 99 08/15/24 15:26 Vital signs reviewed. The patient has been informed that they may have pre-hypertension or Hypertension based on a BP reading in the department. I recommend that the patient call the primary care provider listed on their discharge instructions or a physician of their choice this week to arrange follow up for further evaluation of possible pre-hypertension or Hypertension Medical Decision Making MDM Narrative Medical decision making narrative: Plan care for patients go ahead and swab him today for influenza just to make sure he does not have any other type of viral illness I do not think that we should swab him for COVID since he was just diagnosed a month ago. We will also do a chest x-ray to rule out any pneumonia. I will reassess him once this has resulted. Differential Diagnosis Differential Diagnosis: differential diagnosis: Allergic rhinitis, chronic sinusitis, tonsillitis, acute sinusitis, infectious mononucleosis, seasonal influenza, pertussis, diphtheria, meningococcal disease, viral syndrome, viral bronchitis, RSV, COVID- 19 Vital Signs Vital Signs: Vital Signs Temperature 36.3 C L 08/15/24 15:26 Pulse Rate 120 H 08/15/24 15:26 Respiratory Rate 16 08/15/24 15:26 Blood Pressure 131/86 08/15/24 15:26 Pulse Oximetry 99 08/15/24 15:26 Temperature 36.3 C L 08/15/24 15:26 Pulse Rate 120 H 08/15/24 15:26 Respiratory Rate 16 08/15/24 15:26 Blood Pressure 131/86 08/15/24 15:26 Pulse Oximetry 99 08/15/24 15:26 Lab Data Labs: Lab Results 08/15/24 Range/Units 16:03 POC Influenza A Ag Positive (Negative) POC Influenza B Ag Negative (Negative) Imaging Data Radiologist's impression: [facility] [address] [place] [address] XRay Report Signed Patient: Frandy Mitchell Jr. : 1975 MR#: [id number] Age: 49 Acct:[id number] Loc: [facility] ADM Date: 08/15/24Attending Dr: Ordering Physician: Fidelina Mejia PROJECT FINANCIAL ANALYST Date of Service: 08/15/24 Procedure(s): XR chest 2V Accession Number(s): [id number] cc: Brendon Shaffer MD; Fidelina Mejia PROJECT FINANCIAL ANALYST~ EXAMINATION: XR chest 2V Exam Date/Time: 08/15/2024 15:50 CDT HISTORY: cough and wheezing Comparison: 10/29/2023. RESULT: Lines, tubes, and devices: Cholecystectomy clips. Lungs and pleura: Left hemidiaphragm elevation, otherwise clear. Cardiomediastinal silhouette: Stable. Other: No acute osseous or upper abdominal finding. IMPRESSION: No acute cardiopulmonary process. Chronic left hemidiaphragm elevation. Consider nonemergent fluoroscopic sniff test to evaluate for diaphragmatic paralysis. Reviewed, dictated and finalized at location K. Please be advised this is a medical document. It is intended for [id number] communication. It is written in medical language and may contain unfamiliar abbreviations or verbiage. Medical documents are intended to carry relevant information, facts as evident, and the clinical opinion of the practitioner at the time of the encounter. This report may have been done utilizing a voice recognition system. Attempts have been made to correct errors. However, there may be uncorrected grammatical, spelling, and recognition errors present. The file time of this note does not necessarily represent the time of service. Critical Care Time Critical Care Time Critical Care Time: No Discharge Plan Discharge Clinical Impression: Influenza A Patient Disposition: Home, Self-Care Condition: Stable Instructions: Antibiotic Form, Influenza (ED) Additional Instructions: Influenza (the flu) is an infection caused by the influenza virus. The flu is easily spread when an infected person coughs, sneezes, or has close contact with others. You may be able to spread the flu to others for 1 week or longer after signs or symptoms appear. DISCHARGE INSTRUCTIONS: Call your local emergency number (911 in the [place]) if: You have trouble breathing, and your lips look purple or blue. You have a seizure. Call your doctor if: You are dizzy, or you are urinating less or not at all. You have a headache with a stiff neck, and you feel tired or confused. You have new pain or pressure in your chest. Your symptoms, such as shortness of breath, vomiting, or diarrhea, get worse. Your symptoms, such as fever and coughing, seem to get better, but then get worse. You have new muscle pain or weakness. You have questions or concerns about your condition or care. Medicines: You may need any of the following: Acetaminophen decreases pain and fever. It is available without a doctor's order. Ask how much to take and how often to take it. Follow directions. Read the labels of all other medicines you are using to see if they also contain acetaminophen, or ask your doctor or pharmacist. Acetaminophen can cause liver damage if not taken correctly. Do not use more than 4 grams (4,000 milligrams) total of acetaminophen in one day. NSAIDs , such as ibuprofen, help decrease swelling, pain, and fever. This medicine is available with or without a doctor's order. NSAIDs can cause stomach bleeding or kidney problems in certain people. If you take blood thinner medicine, always ask your healthcare provider if NSAIDs are safe for you. Always read the medicine label and follow directions. Rest as much as you can to help you recover. Patient Language: Occitan Prescriptions: New oseltamivir [Tamiflu] 75 mg capsule 75 mg PO Q12H 5 Days Qty: 10 0RF benzonatate 200 mg capsule 200 mg PO TID PRN (Reason: cough) 10 Days Qty: 30 0RF No Action sildenafil 100 mg tablet 100 mg PO DAILY PRN (Reason: sexual activity) irbesartan-hydrochlorothiazide 150-12.5 mg tablet 1 tablet PO DAILY Follow-up/Referrals: Brendon Shaffer MD [Primary Care Provider] - Time of Disposition: 16:18
[2024-08-15 16:05] LABS: EDINFLUASCREEN Positive (Negative); EDINFLUBSCREEN Negative (Negative)
== END 2024-08-15 16:25 | disposition home or self-care (01) ==
PROVIDERS: Emergency Provider Nurse Practitioner Family; PCP Emergency Medicine
DX: J10.1 Influenza due to other identified influenza virus with other respiratory manifestations (principal); I10 Essential (primary) hypertension; K21.9 Gastro-esophageal reflux disease without esophagitis; G47.30 Sleep apnea, unspecified; Z86.16 Personal history of COVID-19
CPT/HCPCS: 71046; 87804; 99213; G0463

== ENCOUNTER 2024-09-12 15:23 | Emergency (ER) | payer OTHER, SELFPAY ==
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
[2024-09-12 15:37] VITALS: BP 141/92; PULSE 110; RESP 16; TEMP 36.6; O2SAT 99
== END 2024-09-12 16:42 | disposition home or self-care (01) ==
PROVIDERS: Emergency Provider Nurse Practitioner Family; PCP Emergency Medicine
DX: R68.84 Jaw pain (principal); I10 Essential (primary) hypertension; K21.9 Gastro-esophageal reflux disease without esophagitis
CPT/HCPCS: 70110; 99213; G0463

== ENCOUNTER 2024-09-15 00:37 | Day surgery (SDC) | payer OTHER, SELFPAY ==
--- OUTSIDE RECORDS SUMMARY | 2024-08-26 02:11 | XMS_ITS | Continuity of Care Document ---
Author Organization [facility] Address [id number] [place] [address] [address] [place] [address] Phone Care Team Providers Care Machine Farmworker Name Role Phone Will Henao DO Unavailable Unavailable Advance Directives Directive Yes / No Effective Date File Name No Information Encounters Encounter Description Practice Location Reason(s) For Visit Diagnoses Date Provider Providers Copied on Encounter [employer], [address], [place], [place], [id number], [place] tel:[phone] [facility] No Information Earlene Garvey. [address] [facility], [place], [address], [place]. tel: [phone] Family History Family Member Type Diagnosis Age At Onset No Information Payers Payer name Insurance type Covered democrat ID Authoriza tion(s) No Information Social History [...]
--- OUTSIDE RECORDS SUMMARY | 2024-08-26 02:11 | XMS_ITS | Referral Summary ---
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
--- OUTSIDE RECORDS SUMMARY | 2024-08-26 02:11 | XMS_ITS | Encounter Summary ---
Author Organization [facility] Address [address] [place] [address] Phone Care Team Providers Care Marine Engineering Teacher Name Role Phone Brendon Shaffer Primary Care Provider [phone] Willis Hubbard MD Unavailable Encounter Details Date Type Department Care Team (Late st Contact Info) Description 01/14/2022 Telephone [facility] [address] [address] Willis Hubbard MD [address] [address] Social History Tobacco Use Types [...] documented as of this encounter Care Teams Marine Engineering Teacher Relationship Specialty Start Date End Date Edmund Brendon [address] [place] [address] PCP - General Family Medicine 10/23/17 Willis Hubbard MD [address] [place] [address] Consulting Physician Oncology 07/17/21 documented as of this encounter
--- OUTSIDE RECORDS SUMMARY | 2024-08-26 02:11 | XMS_ITS | Clinical Summary ---
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
--- OUTSIDE RECORDS SUMMARY | 2024-08-26 02:11 | XMS_ITS | Clinical Summary ---
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 Gender Identity Not on file Sexual Orientation [...] C Screening 1975 Prostate Cancer Screening-PSA 1975 Hepatitis B Screening 1991 Regular Well Visit/Exam 18-64 1991 Pneumococcal vaccine <65 (1 of 2 - PCV) 02/16/1992 Zoster Vaccine (1 of 2) 2023 Covid-19 Vaccine (4 - 2023- season) 2024 05/23/2021, 08/09/2020, 07/12/2020 Influenza Vaccine (#1) 2024 DTaP/Tdap/Td Vaccine (3 - Td or Tdap) 12/24/2027, 10/31/2016 Insurance [facility] [id number] [facility] [id number] WORKERS COMPENSATION GENERIC Care Teams Warehouse Shipping Receiving Clerk Relationship Specialty Start Date End Date Brendon Shaffer MD [address] [place] [address] PCP - General Family Medicine 12/04/20
--- OUTSIDE RECORDS SUMMARY | 2024-08-26 02:11 | XMS_ITS | Encounter Summary ---
Author Organization [facility] Address [address] [place] [address] Care Team Providers Care Flatwork Supervisor Name Role Phone Dhaval Yap MD Primary Care Provider Encounter Details Date Type Department Care Team (Latest Contact Info) Description 09/25/2005 Outpatient Historical [facility] Jordan Acevedo MD [facility] [address] [address] -[id number] (Work) Displacement of Lumbar Intervertebral Disc without Myelopathy (Primary Dx) Social History Tobacco Use Types Packs/Day Years Used Date Smoking Tobacco: Never Assessed Sex and Gender Information Value Date Recorded Sex Assigned at Not on file Legal Sex Male 2:42 AM [employer] Gender Identity Not on file Sexual Orientation Not on file documented as of this encounter Plan of Treatment Not on file documented as of this encounter Visit Diagnoses Diagnosis Displacement of lumbar intervertebral disc without myelopathy- Primary documented in this encounter Care Teams Flatwork Supervisor Relationship Specialty Start Date End Date Dhaval Yap MD [address] [place] [address] PCP - General 09/25/05 documented as of this encounter
--- OUTSIDE RECORDS SUMMARY | 2024-08-26 02:11 | XMS_ITS | Clinical Summary ---
Author Organization [facility] Address [address] [place] [address] Phone Care Team Providers Care Legal Biller Name Role Phone Brendon Shaffer Primary Care Provider [phone] Willis Hubbard MD Unavailable Allergies Active Allergy Reactions Criticality Noted Date Comments Latex Itching 10/23/2017 Medications irbesartan-hydro CHLOROthiazide (AVALIDE) 150-12.5 MG Tablet Take 1 Tablet by mouth. 07/03/2021 Active Active Problems Problem Noted Date Diagnosed Date Pancytopenia 08/31/2021 Anemia of unknown etiology 10/23/2017 Degeneration of lumbar or lumbosacral interverte bral disc 01/12/2013 Immunizations Immunization Administration Dates Next Due Covid-19, Mrna, Lnp-s, Pf, 3 0 Mcg/0.3 Ml Dose ([facility]) 05/23/2021,08/09/2020,07/12/2020 TDAP Vaccine 12/23/2017,10/31/2016 Family History Medical [...] CUTOFF <0.1 0.0 - 0.9 S/CO RATIO [facility] HEPATITIS C VIRUS AB COMMENT [facility] Comment: NEGATIVE NOT INFECTED WITH HCV, UNLESS RECENT INFECTION IS SUSPECTED OR OTHER EVIDENCE EXISTS TO INDICATE HCV INFECTION. EFFECTIVE OCTOBER 08, 2021 HCV ANTIBODY REFLEX TO MAE WILL BE MADE NON-ORDERABLE. THIS WILL AFFECT ANY CUSTOM PROFILE THAT INCLUDES [id number] HCV ANTIBODY REFLEX TO MAE. [facility] OFFERS ORDER CODE [id number] HCV ANTIBODY RFX TO QUANT PCR AN ALTERNATIVE. Blood 08/31/2021 10:4 6 AM CDT Narrative [facility] - 09/01/2021 7:11 AM CDT TESTING PERFORMED AT: [] [address], [address], PHONE: [phone], [employer]SE LABORER: MARTIN JUAREZ, PHD Release to patient->Immediate us Willis Hubbard MD CHEMISTRY ORDERABLES Final R esult [facility] from Last 3 Months or Most Recently Relevant to Health Maintenance Insurance [facility] OA Care Teams Legal Biller Relationship Specialty Start Date End Date Brendon Shaffer [address] [place] [address] PCP - General Family Medicine 10/23/17 Willis Hubbard MD [address] [place] [address] Consulting Physician Oncology 07/17/21
--- OUTSIDE RECORDS SUMMARY | 2024-08-26 02:11 | XMS_ITS | Clinical Summary ---
Author Organization [facility] Address [address] [place] [address] Care Team Providers Care Word Processing Operator Name Role Phone Brendon Shaffer MD Primary Care Provider [phone] Social History Tobacco Use Types Packs/Day Years [...] patient's age to complete this topic Insurance [employer] [facility] Care Teams Word Processing Operator Relationship Specialty Start Date End Date Brendon Shaffer MD PCP - General FAMILY PRACTICE 09/20/21
--- OUTSIDE RECORDS SUMMARY | 2024-08-26 02:11 | XMS_ITS | Clinical Summary ---
Author Organization [facility] Address [address] [place] [address] Care Team Providers Care Modeling Agent Name Role Phone Brendon Shaffer MD Primary Care Provider [phone] Source Comments [facility],non-owned Affiliates and Associated Physician Practices is amultiple site organization consisting of ambulatory clinics and hospital sitesin [place], [place], [place] and [place]. This disclosure is being madepursuant to the Care Everywhere program and may not contain all information available regarding this patient. Last updated 18.[facility] [employer] Allergies Active Allergy Reactions Criticality Noted Date [...] to complete this topic MENINGOCOCCAL (Group B) VACC INE SHARED DECISION-MAKING Aged Out No longer eligibl e based on patient's age to complete this topic MENINGOCOCCAL GROUPS A/C/Y/W VACCINE Aged Out No longer eligible b ased on patient's age to complete this topic Care Teams Modeling Agent Relationship Specialty Start Date End Date Brendon Shaffer MD PCP - General 02/02/20
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
--- OUTSIDE RECORDS SUMMARY | 2024-08-26 02:11 | XMS_ITS | Encounter Summary ---
Author Organization [facility] Address [address] [place] [address] Care Team Providers Care Anthropology Instructor Name Role Phone Dhaval Yap MD Primary Care Provider [phone] Encounter Details Date Type Department Care Team (Latest Contact Info) Description 09/13/2005 Outpatient Historical [facility] Jordan Acevedo MD [facility] [address] [phone] (Work) Displacement of Lumbar Intervertebral Disc without Myelopathy (Primary Dx) Social History Tobacco Use Types Packs/Day Years Used Date Smoking Tobacco: Never Assessed Sex and Gender Information Value Date Recorded Sex Assigned at Not on file Legal Sex Male 2:42 AM [employer] Gender Identity Not on file Sexual Orientation Not on file documented as of this encounter Plan of Treatment Not on file documented as of this encounter Visit Diagnoses Diagnosis Displacement of lumbar intervertebral disc without myelopathy- Primary documented in this encounter Care Teams Anthropology Instructor Relationship Specialty Start Date End Date Dhaval Yap MD [address] [place] [address] PCP - General 09/25/05 documented as of this encounter
[2024-09-08 08:09] VITALS: BMI 38.1
--- OUTSIDE RECORDS SUMMARY | 2024-09-15 00:41 | XMS_ITS | Continuity of Care Document ---
Author Organization [facility] Address [address] [place] [address] [address] [place] [address] Phone Care Team Providers Care Certified Master Locksmith Name Role Phone Will Henao DO Unavailable Unavailable Advance Directives Directive Yes / No Effective Date File Name No Information Encounters Encounter Description Practice Location Reason(s) For Visit Diagnoses Date Provider Providers Copied on Encounter [facility] [address], [place], [place], [id number], [place] tel:[phone] [facility] No Information Earlene Garvey. [address] [facility], [place], [address], [place]. tel: [phone] Family History Family Member Type Diagnosis Age At Onset No Information Payers Payer name Insurance type Covered alliance party ID Authoriza tion(s) No Information Social [...]
--- OUTSIDE RECORDS SUMMARY | 2024-09-15 00:41 | XMS_ITS | Encounter Summary ---
Author Organization [facility] Address [address] [place] [address] Phone Care Team Providers Care Terrazzo Polisher Helper Name Role Phone Brendon Shaffer Primary Care Provider [phone] Willis Hubbard MD Unavailable [phone] Encounter Details Date Type Department Care Team (Late st Contact Info) Description 01/14/2022 Telephone [facility] [address] [address] Willis Hubbard MD [address] [address] Social History Tobacco Use Types [...] documented as of this encounter Care Teams Terrazzo Polisher Helper Relationship Specialty Start Date End Date Edmund Brendon [address] [place] [address] PCP - General Family Medicine 10/23/17 Willis Hubbard MD [address] [place] [address] Consulting Physician Oncology 07/17/21 documented as of this encounter
--- OUTSIDE RECORDS SUMMARY | 2024-09-15 00:41 | XMS_ITS | Clinical Summary ---
Author Organization [facility] Address [address] [place] [address] Care Team Providers Care Facility Planner Name Role Phone Brendon Shaffer MD Primary Care Provider [phone] Source Comments [facility],non-owned Affiliates and Associated Physician Practices is amultiple site organization consisting of ambulatory clinics and hospital sitesin [place], [place], [place]. This disclosure is being madepursuant to the Care Everywhere program and may not contain all information available regarding this patient. Last updated 18.[facility] [employer] Allergies Active Allergy Reactions Criticality Noted Date [...] VACCINE (1 - 2023-2 5 season) 2024 DEPRESSION SCREENING 06/09/2024 INFLUENZA VACCINE (Season Ended) 2025 HIB VACCINE Aged Out No longer eligi [...] age to complete this topic Care Teams Facility Planner Relationship Specialty Start Date End Date Brendon Shaffer MD PCP - General 02/02/20
--- OUTSIDE RECORDS SUMMARY | 2024-09-15 00:41 | XMS_ITS | Encounter Summary ---
Author Organization [facility] Address 

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
--- OUTSIDE RECORDS SUMMARY | 2024-09-15 00:41 | XMS_ITS | Clinical Summary ---
Author Organization [facility] Address [address] [place] [address] Care Team Providers Care Emergency Room Specialist Name Role Phone Brendon Shaffer MD Primary Care Provider [phone] Social History Tobacco Use Types Packs/Day Years [...] (2 - 2023-2 5 season) 2024 05/23/2021 Meningococcal B Vaccine Aged Out No l [...] patient's age to complete this topic Insurance [employer] [facility] Care Teams Emergency Room Specialist Relationship Specialty Start Date End Date Brendon Shaffer MD PCP - General FAMILY PRACTICE 09/20/21
--- OUTSIDE RECORDS SUMMARY | 2024-09-15 00:41 | XMS_ITS | Clinical Summary ---
Author Organization [facility] Address [address] [place] [address] Phone Care Team Providers Care Hasher Machine Operator Name Role Phone Brendon Shaffer Primary Care Provider [phone] Willis Hubbard MD Unavailable [phone] Allergies Active Allergy Reactions Criticality Noted Date Comments Latex Itching 10/23/2017 Medications irbesartan-hydro CHLOROthiazide (AVALIDE) 150-12.5 MG Tablet Take 1 Tablet by mouth. 07/03/2021 Active Active Problems Problem Noted Date Diagnosed Date Pancytopenia 08/31/2021 Anemia of unknown etiology 10/23/2017 Degeneration of lumbar or lumbosacral interverte bral disc 01/12/2013 Immunizations Immunization Administration Dates Next Due Covid-19, Mrna, Lnp-s, Pf, 3 0 Mcg/0.3 Ml Dose ([employer] Interventional) 05/23/2021,08/09/2020,07/12/2020 TDAP Vaccine 12/23/2017,10/31/2016 Family History Medical [...] CUTOFF <0.1 0.0 - 0.9 S/CO RATIO [facility] HEPATITIS C VIRUS AB COMMENT [facility] Comment: NEGATIVE NOT INFECTED WITH HCV, UNLESS RECENT INFECTION IS SUSPECTED OR OTHER EVIDENCE EXISTS TO INDICATE HCV INFECTION. EFFECTIVE OCTOBER 08, 2021 HCV ANTIBODY REFLEX TO MAE WILL BE MADE NON-ORDERABLE. THIS WILL AFFECT ANY CUSTOM PROFILE THAT INCLUDES [id number] HCV ANTIBODY REFLEX TO MAE. [facility] OFFERS ORDER CODE 180386 HCV ANTIBODY RFX TO QUANT PCR AN ALTERNATIVE. Blood 08/31/2021 10:4 6 AM CDT Narrative [facility] - 09/01/2021 7:11 AM CDT TESTING PERFORMED AT: [] [address], [address], PHONE: [phone], GARBAGE TRUCK DRIVER: MARTIN JUAREZ, PHD Release to patient->Immediate us Willis Hubbard MD CHEMISTRY ORDERABLES Final R esult [facility] from Last 3 Months or Most Recently Relevant to Health Maintenance Insurance [facility] Care Teams Hasher Machine Operator Relationship Specialty Start Date End Date Brendon Shaffer [address] [place] [address] PCP - General Family Medicine 10/23/17 Willis Hubbard MD [address] [place] [address] Consulting Physician Oncology 07/17/21
--- OUTSIDE RECORDS SUMMARY | 2024-09-15 00:41 | XMS_ITS | Clinical Summary ---
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
--- OUTSIDE RECORDS SUMMARY | 2024-09-15 00:41 | XMS_ITS | Referral Summary ---
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 [id number] [facility] [id number] [employer] Care Teams Software Implementation Specialist Relationship Specialty Start Date End Date Brendon Shaffer MD [facility] [place] [address] PCP - General Family Medicine 12/04/20
--- OUTSIDE RECORDS SUMMARY | 2024-09-15 00:41 | XMS_ITS | Clinical Summary ---
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
--- OUTSIDE RECORDS SUMMARY | 2024-09-15 00:41 | XMS_ITS | Encounter Summary ---
Author Organization [facility] Address [address] [place] [address] Care Team Providers Care Chemical Weigher Name Role Phone Dhaval Yap MD Primary Care Provider [phone] Encounter Details Date Type Department Care Team (Latest Contact Info) Description 09/13/2005 Outpatient Historical HIS [facility] Jordan Acevedo MD [facility] [address] [phone] -[phone] (Work) Displacement of Lumbar Intervertebral Disc without Myelopathy (Primary Dx) Social History Tobacco Use Types Packs/Day Years Used Date Smoking Tobacco: Never Assessed Sex and Gender Information Value Date Recorded Sex Assigned at Not on file 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
[2024-09-15 12:18] VITALS: BP 123/76; PULSE 75; RESP 18; TEMP 35.7; O2SAT 100
[2024-09-15] MEDS: LACTATED RINGERS 1,000 ML 150 ML IV CONT (12:32)
--- NOTE | 2024-09-15 13:10 | P.PNAN_ITS ---
Anes - Initial Pre Proc Eval Procedure: Operation Date: 09/15/24 13:30 Proposed Procedures p Colonoscopy - Darren Tyler MD Date/Time: 09/15/24 13:10 Surgeon: Darren Tyler MD Pre Op Diagnosis: hx of colon polyps Patient Data Age: 49 Gender: M Height: 1.78 m Weight: 120.4 kg Last Vital Signs Temp 35.7 C L 09/15/24 12:18 Pulse 75 09/15/24 12:18 Resp 18 09/15/24 12:18 BP 123/76 09/15/24 12:18 Pulse Ox 100 09/15/24 12:18 O2 Del Method Room Air 09/15/24 12:18 Allergies Allergy/AdvReac Type Severity Reaction Status Date / Time latex Allergy Itching Verified 09/15/24 12:17 Home Medications ?Medication ?Instructions ?Recorded ?Confirmed ?Type irbesartan 150 1 tablet PO DAILY 02/24/22 09/15/24 History mg-hydrochlorothiazide 12.5 mg tablet sildenafil 100 mg tablet 100 mg PO DAILY PRN sexual activity 05/30/24 09/08/24 History esomeprazole magnesium 20 mg 20 mg PO DAILY PRN reflux 09/08/24 09/08/24 History capsule,delayed release (Nexium) Patient hx anesthesia problems: none Family hx anesthesia problems: none Results Review: All pre-operative results and documents have been reviewed as part of the pre- operative evaluation. [facility] Past Medical History Medical History Back pain GERD (gastroesophageal reflux disease) Sleep apnea Hypertension Surgical History Surgical History S/P excision of skin lesion, follow-up exam 06/16/24 Excision 1.4 cm skin lesion of the pubis with 1 mm margins, 1.6 cm excision. 7.[address] Villalba H/O esophagogastroduodenoscopy Previous back surgery fusion of L4 and L5 History of cholecystectomy Family History Family History Mother Patient's mother is in good health Father Patient's father is in good health Sibling Patient's sister is in good health Patient's brother is in good health Social History Social History Smoking status: Never smoker Alcohol intake: never Substance use: never Current Housing: Decline to Answer Concerned About Future Housing: Decline to Answer Difficulty Paying Gas/Electric Bills: Decline to Answer Difficulty Paying for Meds: Decline to Answer Currently Unemployed: Decline to Answer Education: Decline to Answer Difficulty w/ Childcare or Family Care: Decline to Answer Living arrangements: with family Gender identity (if verbalized by the patient): Male Spiritual care concerns: No Anes - Eval Final PreProcedure Day of Procedure 09/15/24 13:10 Patient weight: obese Heart: regular rate and rhythm Lungs: clear to auscultation Airway: Mallampati scale class II Neurological: alert and oriented Last oral intake: >/= 8 hours ASA classification: III Emergent: no Anesthetic plan: proceed Anesthesia type and monitoring: general GIVS and standard monitoring Results Review: All pre-operative results and documents have been reviewed as part of the pre- operative evaluation. Informed Consent: The patient's anesthetic plan and its attendant risks and benefits were discussed with the patient/family/POA. Questions were solicited and answers provided to the satisfaction of the patient/family/POA.
--- NOTE | 2024-09-15 13:33 | PM.IMHP ---
H&P: HPI History of Present Illness Date/Time: 09/15/24 13:33 Chief Complaint: History of polyps- family history colon cancer Narrative: The patient has a history of colonic polyps, the last colonoscopy was 5 years ago. This patient has family history of colorectal cancer. His sister had it when she was in her 30s. Review of Systems Review of Systems: All systems reviewed & are unremarkable except as noted in HPI and below PMFSH Past Medical History Medical History Back pain GERD (gastroesophageal reflux disease) Sleep apnea Hypertension Surgical History Surgical History S/P excision of skin lesion, follow-up exam 06/16/24 Excision 1.4 cm skin lesion of the pubis with 1 mm margins, 1.6 cm excision. 7.[address] Villalba H/O esophagogastroduodenoscopy Previous back surgery fusion of L4 and L5 History of cholecystectomy Family History Family History Mother Patient's mother is in good health Father Patient's father is in good health Sibling Patient's sister is in good health Patient's brother is in good health Social History Social History Smoking status: Never smoker Alcohol intake: never Substance use: never Current Housing: Decline to Answer Concerned About Future Housing: Decline to Answer Difficulty Paying Gas/Electric Bills: Decline to Answer Difficulty Paying for Meds: Decline to Answer Currently Unemployed: Decline to Answer Education: Decline to Answer Difficulty w/ Childcare or Family Care: Decline to Answer Living arrangements: with family Gender identity (if verbalized by the patient): Male Spiritual care concerns: No Meds Home Medications and Allergies Home Medications ?Medication ?Instructions ?Recorded ?Confirmed ?Type irbesartan 150 1 tablet PO DAILY 02/24/22 09/15/24 History mg-hydrochlorothiazide 12.5 mg tablet sildenafil 100 mg tablet 100 mg PO DAILY PRN sexual activity 05/30/24 09/08/24 History esomeprazole magnesium 20 mg 20 mg PO DAILY PRN reflux 09/08/24 09/08/24 History capsule,delayed release (Nexium) Allergies Allergy/AdvReac Type Severity Reaction Status Date / Time latex Allergy Itching Verified 09/15/24 12:17 Vital Signs Vital Signs - 24 hr 09/15/24 12:18 Temperature 96.2 F L Pulse Rate 75 Respiratory Rate 18 Blood Pressure 123/76 Pulse Oximetry 100 Oxygen Delivery Room Air Exam Const: General: cooperative and healthy appearing Resp: Effort & Inspection: normal respiratory effort and able to speak in complete sentences Auscultation: clear to auscultation bilaterally Cardio: Rate: regular rate Rhythm: regular rhythm GI: Inspection: normal to inspection GI Palp: No No hepatosplenomegaly present Auscultation: normal bowel sounds Rectal Exam: deferred Skin: General skin exam: normal color Psych: Appearance: grossly normal Mental Status: mental status grossly normal Assessment and Plan Assessment and plan (1) Colon polyps: Qualifiers: Colon polyp type: unspecified Colon location: unspecified part of colon Qualified Code(s): K63.5 - Polyp of colon Code(s): K63.5 - Polyp of colon Status: Acute Assessment and Plan: The patient is deemed a good candidate for the procedure. Consent signed. Will proceed.
[2024-09-15 13:51] VITALS: BP 102/53; PULSE 83; RESP 17; O2SAT 99
[2024-09-15 14:01] VITALS: BP 116/77; PULSE 79; RESP 18; O2SAT 99
[2024-09-15 14:11] VITALS: BP 120/77; PULSE 75; RESP 20; O2SAT 100
== END 2024-09-15 14:25 | disposition home or self-care (01) ==
PROVIDERS: PCP Emergency Medicine; Referring Provider Emergency Medicine; Visit Provider Internal Medicine Gastroenterology
PROC: 0DJD8ZZ Inspection of Lower Intestinal Tract, Via Natural or Artificial Opening Endoscopic (ICD-10-PCS; CPT 45378; principal; 2024-09-15 13:30)
DX: Z12.11 Encounter for screening for malignant neoplasm of colon (principal); D12.2 Benign neoplasm of ascending colon; Z80.0 Family history of malignant neoplasm of digestive organs
CPT/HCPCS: 45385; 88305; J2003; J2704; J7120

== ENCOUNTER 2025-04-26 23:01 | Emergency (ER) | payer OTHER, SELFPAY ==
--- NOTE | ~2025-04-26 | XR_ITS ---
Examination: XR chest 2V Clinical History: CP Comparison: 08/15/2024 Technique: PA and Lateral Findings: Cardiomediastinal silhouette normal size and configuration. Lungs clear. No acute bony abnormality. IMPRESSION: 1. No acute cardiopulmonary findings. Reviewed, dictated and finalized at location R. UCTION PLANNER
[2025-04-26 23:15] VITALS: BP 135/80; PULSE 65; RESP 16; TEMP 36.8; O2SAT 99
[2025-04-26 23:56] LABS: Hematocrit 37.8 % (42.0-52.0); Hemoglobin 12.8 g/dL (14.0-18.0); Immature Granulocyte Percent A 0.2 % (0-0.5); Lymphocytes Absolute Auto 1.36 K/mm3 (0.9-3.2); Mean Corpuscular HGB Conc 33.9 g/dl (32-36); Mean Corpuscular Hemoglobin 29.9 pg (26-34); Mean Corpuscular Volume 88.3 fl (80-100); Nucleated Red Blood Cells Absolute Auto 0.000 K/mm3 (0.0-0.012); Nucleated Red Blood Cells Perc 0.0 % (0.0-0.2); Platelet Count Result 210 k/mm3 (150-375); Red Blood Count 4.28 M/mm3 (4.6-6.20); White Blood Count 4.5 K/mm3 (4.5-10.0)
[2025-04-27] VITALS (9 sets, daily range): BP systolic 123–126; BP diastolic 81–83; PULSE 62–78; RESP 13–19; O2SAT 98–100
[2025-04-27 00:07] LABS: INR 1.0; Prothrombin Time 13.2 Seconds (11.1-14.7)
[2025-04-27 00:08] LABS: Partial Thromboplastin Time 30.1 Seconds (22.3-36.8)
[2025-04-27 00:17] LABS: Alanine Aminotransferase 52 U/L (6-50); Albumin Level 4.4 g/dL (3.5-5.1); Alkaline Phosphatase 151 U/L (38-126); Anion Gap 7 mmol/L (4-12); Aspartate Amino Transferase 61 U/L (17-59); Bilirubin,Total 0.7 mg/dL (0.2-1.3); Blood Urea Nitrogen 15 mg/dL (9-20); Calcium 9.7 mg/dL (8.4-10.2); Carbon Dioxide 24 mmol/L (22-30); Chloride 103 mmol/L (98-107); Estimated CRCL calculation 95 ml/min; Estimated Glomerular Filt Rate > 60; Glucose 102 mg/dL (65-110); Lipase 122 U/L (23-300); Potassium 4.1 mmol/L (3.4-5.0); Sodium 134 mmol/L (137-145); Total Protein 8.0 g/dL (6.3-8.2)
--- NOTE | 2025-04-27 00:21 | ED_ITS ---
HPI - Chest Pain General Chief Complaint: Chest Pain Stated Complaint: Chest Pain Time Seen by Provider: 04/26/25 23:38 History of Present Illness HPI narrative: Patient is a 50-year-old male presents to the ER with meals chest pain that started ?a few days ago.He reports the pain is to the left side of his mid sternum. Patient reports the pain comes and goes. He reports he was moving up 0 DM last night and afterwards he noticed increased pain. Patient also endorses increased pain when he takes a deep breath. He also endorses bilateral pain to the back of his legs that radiates down to his knees. Patient reports he has had sciatica in the past but this feels different. He denies any lower extremity swelling, recent fevers, shortness of breath. Patient endorses a history of high blood pressure and GERD. Related Data Home Medications ?Medication ?Instructions ?Recorded ?Confirmed ?Last Taken ?Type irbesartan 150 1 tablet PO DAILY 02/24/22 0 09/15/24 09/15/24 History mg-hydrochlorothiazide 12.5 mg tablet sildenafil 100 mg tablet 100 mg PO DAILY PRN sexual a ctivity 05/30/24 09/08/24 Unknown History esomeprazole magnesium 20 mg 20 mg PO DAILY PRN reflux 09/08/24 09/08/24 Unknown History capsule,delayed release (Nexium) Allergies Allergy/AdvReac Type Severity Reaction Status Date / Time latex Allergy Itching Verified 04/26/25 23:02 Review of Systems 2 Review of Systems: All systems reviewed & are unremarkable except as noted in HPI and below PMFSH Past Medical History Medical History Back pain GERD (gastroesophageal reflux disease) Sleep apnea Hypertension Surgical History Surgical History S/P excision of skin lesion, follow-up exam 06/16/24 Excision 1.4 cm skin lesion of the pubis with 1 mm margins, 1.6 cm excision. 7.[address] Villalba H/O esophagogastroduodenoscopy Previous back surgery fusion of L4 and L5 History of cholecystectomy Family History Family History Mother Patient's mother is in good health Father Patient's father is in good health Sibling Patient's sister is in good health Patient's brother is in good health Social History Social History Smoking status: Never smoker Alcohol intake: never Substance use: never Current Housing: Decline to Answer Concerned About Future Housing: Decline to Answer Difficulty Paying Gas/Electric Bills: Decline to Answer Difficulty Paying for Meds: Decline to Answer Currently Unemployed: Decline to Answer Education: Decline to Answer Difficulty w/ Childcare or Family Care: Decline to Answer Living arrangements: with family Gender identity (if verbalized by the patient): Male Spiritual care concerns: No Exam 2 Narrative: GENERAL: Well appearing, well-nourished, non-toxic, in no acute distress. HEAD: Normocephalic, atraumatic. NECK: Supple. No adenopathy, no masses. RESPIRATORY: Airway patent, respirations nonlabored. Clear to auscultation bilaterally, no rales, rhonchi, wheezing. CARDIOVASCULAR: Regular rate and rhythm without murmurs, rubs, or gallops. Peripheral pulses 2+ and equal bilaterally. ABDOMINAL: Soft, nontender, nondistended, no hepatosplenomegaly. Normoactive BS. MUSCULOSKELETAL: Moves all extremities. Strength/ROM intact without gross deformities. SKIN: Warm, dry, normal color. No rashes. NEURO: A&O X3. Speech clear. Cranial nerves II-XII intact. No ataxic movements. PSYCHIATRIC: Appropriate mood and affect. Normal interaction. Course Vital Signs Vital signs: Vital Signs Temperature 36.8 C 04/26/25 23:15 Pulse Rate 65 04/26/25 23:15 Respiratory Rate 16 04/26/25 23:15 Blood Pressure 135/80 04/26/25 23:15 Pulse Oximetry 99 04/26/25 23:15 Temperature 36.8 C 04/26/25 23:15 Pulse Rate 65 04/27/25 02:02 Respiratory Rate 19 04/27/25 02:02 Blood Pressure 126/83 04/27/25 02:02 Pulse Oximetry 99 04/27/25 02:02 MDM - Chest Pain MDM Narrative Medical decision making narrative: Patient is a 50-year-old male presents to the ER with meals chest pain that started ?a few days ago.He reports the pain is to the left side of his mid sternum. Patient reports the pain comes and goes. He reports he was moving up 0 DM last night and afterwards he noticed increased pain. Patient also endorses increased pain when he takes a deep breath. He also endorses bilateral pain to the back of his legs that radiates down to his knees. Patient reports he has had sciatica in the past but this feels different. He denies any lower extremity swelling, recent fevers, shortness of breath. Patient endorses a history of high blood pressure and GERD. Labs Ordered: CBC, CMP, TSH, proBNP, troponin, D-dimer, lipase, PTT, INR Imaging Ordered: Chest x-ray Medications Ordered:Toradol 60mg IM Results: Patient's chest x-ray indicates no acute findings. Diagnosis: Musculoskeletal pain, atypical chest pain Risks: HEART score: low risk HEART Score for Major Cardiac Events from [email or web address] on 04/27/2025 All calculations should be rechecked by clinician prior to use RESULT SUMMARY: 2 points Low Score (0-3 points) Risk of MACE of 0.9-1.7%. INPUTS: History ?> 0 = Slightly suspicious EKG ?> 0 = Normal Age ?> 1 = 45-64 Risk factors ?> 1 = 1-2 risk factors Initial troponin ?> 0 = <Normal limit Patient Education/Shared MDM: Results of lab work and imaging shared with patient. Patient's symptoms are most likely musculoskeletal in nature, as they became worse after he lifted heavy objects. It was advised patient receive a dose of Toradol IM prior to discharge to see if this helps relieve his symptoms. Patient strongly advised to maintain hydration status upon discharge and follow-up with his PCP as soon as possible for further evaluation. He will not be discharged home with any new prescriptions. Strict return precautions provided. Patient verbalized understanding and is in agreement with plan. Vital signs stable at time of discharge. All questions answered. Differential Diagnosis Differential diagnosis: Likely atypical chest pain, st elevation myocardial infarction, costochondritis and chest pain Lab Data Attestation: I reviewed the patient's lab results. 04/26/25 23:49 04/26/25 23:49 Labs: Lab Results 04/26/25 04/26/25 04/26/25 Range/Units 23:49 23:49 23:49 WBC 4.5 (4.5-10.0) K/mm3 RBC 4.28 L (4.6-6.20) M/mm3 Hgb 12.8 L (14.0-18.0) g/dL Hct 37.8 L (42.0-52.0) % MCV 88.3 (80-100) fl MCH 29.9 (26-34) pg MCHC 33.9 (32-36) g/dl RDW 13.5 (11.5-14.5) % Plt Count 210 (150-375) k/mm3 MPV 9.6 (7.4-10.4) fl Immature Gran % (Auto) 0.2 (0-0.5) % Neut % (Auto) 51.2 (45.5-73.1) % Lymph % (Auto) 30.4 (18.3-44.2) % Cocke % (Auto) 8.9 H (2.6-8.5) % Eos % (Auto) 8.9 H (0-4.4) % Baso % (Auto) 0.4 (0.2-1.2) % Lymph # (Auto) 1.36 (0.9-3.2) K/mm3 Cocke # (Auto) 0.4 (0.1-0.6) K/mm3 Eos # (Auto) 0.4 H (0-0.3) K/mm3 Baso # (Auto) 0.0 (0.0-0.1) K/mm3 Abs Immat Gran (auto) 0.01 (0.00-0.031) K/mm3 Absolute Neuts (auto) 2.3 (1.3-6.7) K/mm3 Absolute Nucleated RBC 0.000 (0.0-0.012) K/mm3 Nucleated RBC % 0.0 (0.0-0.2) % PT 13.2 Cancelled (11.1-14.7) Seconds INR 1.0 Cancelled APTT 30.1 (22.3-36.8) Seconds D-Dimer (<0.48) ug/mL Sodium (137-145) mmol/L Potassium (3.4-5.0) mmol/L Chloride (98-107) mmol/L Carbon Dioxide (22-30) mmol/L Anion Gap (4-12) mmol/L BUN (9-20) mg/dL Creatinine (0.7-1.3) mg/dL Estim Creat Clear Calc ml/min Estimated GFR (59 - ) Glucose (65-110) mg/dL Calcium (8.4-10.2) mg/dL Total Bilirubin (0.2-1.3) mg/dL AST (17-59) U/L ALT (6-50) U/L Alkaline Phosphatase (38-126) U/L Troponin I (0.000-0.034) ng/mL NT-Pro-B Natriuret Pep (19.9-100) pg/mL Total Protein (6.3-8.2) g/dL Albumin (3.5-5.1) g/dL Lipase (23-300) U/L TSH (Reflex) (0.465-4.68) uIU/mL 04/26/25 04/26/25 Range/Units 23:49 23:49 WBC (4.5-10.0) K/mm3 RBC (4.6-6.20) M/mm3 Hgb (14.0-18.0) g/dL Hct (42.0-52.0) % MCV (80-100) fl MCH (26-34) pg MCHC (32-36) g/dl RDW (11.5-14.5) % Plt Count (150-375) k/mm3 MPV (7.4-10.4) fl Immature Gran % (Auto) (0-0.5) % Neut % (Auto) (45.5-73.1) % Lymph % (Auto) (18.3-44.2) % Cocke % (Auto) (2.6-8.5) % Eos % (Auto) (0-4.4) % Baso % (Auto) (0.2-1.2) % Lymph # (Auto) (0.9-3.2) K/mm3 Cocke # (Auto) (0.1-0.6) K/mm3 Eos # (Auto) (0-0.3) K/mm3 Baso # (Auto) (0.0-0.1) K/mm3 Abs Immat Gran (auto) (0.00-0.031) K/mm3 Absolute Neuts (auto) (1.3-6.7) K/mm3 Absolute Nucleated RBC (0.0-0.012) K/mm3 Nucleated RBC % (0.0-0.2) % PT (11.1-14.7) Seconds INR APTT Cancelled (22.3-36.8) Seconds D-Dimer 0.33 (<0.48) ug/mL Sodium 134 L (137-145) mmol/L Potassium 4.1 (3.4-5.0) mmol/L Chloride 103 (98-107) mmol/L Carbon Dioxide 24 (22-30) mmol/L Anion Gap 7 (4-12) mmol/L BUN 15 (9-20) mg/dL Creatinine 1.07 (0.7-1.3) mg/dL Estim Creat Clear Calc 95 ml/min Estimated GFR > 60 (59 - ) Glucose 102 (65-110) mg/dL Calcium 9.7 (8.4-10.2) mg/dL Total Bilirubin 0.7 (0.2-1.3) mg/dL AST 61 H (17-59) U/L ALT 52 H (6-50) U/L Alkaline Phosphatase 151 H (38-126) U/L Troponin I < 0.012 (0.000-0.034) ng/mL NT-Pro-B Natriuret Pep < 20 (19.9-100) pg/mL Total Protein 8.0 (6.3-8.2) g/dL Albumin 4.4 (3.5-5.1) g/dL Lipase 122 121 (23-300) U/L TSH (Reflex) 3.000 (0.465-4.68) uIU/mL Imaging Data Attestation: I personally reviewed and interpreted this imaging study as follows: Radiologist's impression: No acute abnormality. Discharge Plan Discharge Clinical Impression: Atypical chest pain, Musculoskeletal chest pain Patient Disposition: Home Condition: Stable Instructions: Antibiotic Form, Musculoskeletal Pain (ED) Additional Instructions: Please return to the ER with any worsening symptoms. Follow-up with primary care provider as soon as possible for further evaluation. Take all medications as prescribed, including regularly scheduled medications. You may take Tylenol and/or Ibuprofen for pain relief. Patient Language: Cambodian Prescriptions: No Action sildenafil 100 mg tablet 100 mg PO DAILY PRN (Reason: sexual activity) irbesartan-hydrochlorothiazide 150-12.5 mg tablet 1 tablet PO DAILY esomeprazole magnesium [Nexium] 20 mg capsule,delayed release(DR/EC) 20 mg PO DAILY PRN (Reason: reflux) Follow-up/Referrals: Brendon Shaffer MD [Primary Care Provider, [facility]] Time of Disposition: 02:53
[2025-04-27 00:24] LABS: Troponin I < 0.012 ng/mL (0.000-0.034)
--- NOTE | 2025-04-27 00:26 | ECG_ITS ---
Test Date: 2025-04-27 00:26:30 Measurements Intervals [place] Rate: 62 P: 44 OR: 162 QRS: -7 QRSD: 96 T: 27 QT: 385 QTc: 391 Interpretive Statements SINUS RHYTHM NORMAL ELECTROCARDIOGRAM No previous ECG available for comparison Electronically Signed On 04-27-2025 07:45:21 [employer]ANK[employer] by Yohan Elliott M.D.
[2025-04-27 01:15] LABS: Lipase 121 U/L (23-300)
[2025-04-27 01:21] LABS: NT Pro B Type Natriuretic Pept < 20 pg/mL (19.9-100)
[2025-04-27 01:42] LABS: Thyroid Stimulating Hormone Reflex 3.000 uIU/mL (0.465-4.68)
[2025-04-27] MEDS: KETOROLAC (*BKC) 60 MG/2 ML VIAL IM (03:12)
--- OUTSIDE RECORDS SUMMARY | 2025-04-27 05:11 | XMS_ITS | Clinical Summary ---
Author Organization [facility] Address [address], [address] [place] [address] Phone Care Team Providers Care Surveillance Inspector Name Role Phone Brendon Shaffer Primary Care Provider [phone] Willis Hubbard MD Unavailable [phone] Allergies Active Allergy Reactions Criticality Noted Date Comments Latex Itching 10/23/2017 Medications irbesartan-hydro CHLOROthiazide (AVALIDE) 150-12.5 MG Tablet Take 1 Tablet by mouth. 07/03/2021 Active Active Problems Problem Noted Date Diagnosed Date Pancytopenia 08/31/2021 Anemia of unknown etiology 10/23/2017 Degeneration of lumbar or lumbosacral interverte bral disc 01/12/2013 Immunizations Immunization Administration Dates Next Due Covid-19, Mrna, Lnp-s, Pf, 3 0 Mcg/0.3 Ml Dose ([employer]) 05/23/2021,08/09/2020,07/12/2020 TDAP Vaccine 12/23/2017,10/31/2016 Family History Medical History Relation Name Comments Diabetes Father Hypertension Sister Relation Name Status Comments Father Sister Social History Tobacco Use Types Packs/Day Years Used Date Smoking Tobacco: Former Cigarettes 0 Q uit: 10/23/1997 Smokeless Tobacco: Never Alcohol [...] 1:53 PM CDT Height 180.3 cm (5' 11) 10/11/2021 1:53 PM CDT Body Mass Index 38.49 10/11/2021 1:53 PM CDT Plan of Treatment Health Maintenance Due Date Last Done Comments Hepatitis B Immunization (1 of 3 - 19+ 3-dose series) 02/16/1992 Cologuard 2018 Colonoscopy 2018 Colorectal Cancer Screening 2018 Immunochemical Fecal Occult Blood 2018 Pneumococcal Immunization (5 0+ years) (1 of 1 - PCV) 2023 Zoster Immunization (1 of 2) 2023 Influenza Immunization (#1) 2025 SARS-COV-2 Immunization ( - season) 2025 05/23/2021, 08/09/2020, 07/12/2020 Respiratory Syncytial Virus (RSV) Immunization (Adult) (1 - 1-dose 75+ series) 02/16/2048 DTaP/Tdap/Td Immunization Discontinued 2017, 10/31/2016 Hepatitis C Virus (HCV) Screening Completed 08/31/2021 Human Papillomavirus (HPV) Immunization Aged Out No longer eligible based on patient's age to complete this topic Meningococcal Immunization (ACWY) Aged Out No longer [...] CUTOFF <0.1 0.0 - 0.9 S/CO RATIO [facility] HEPATITIS C VIRUS AB COMMENT [facility] Comment: NEGATIVE NOT INFECTED WITH HCV, UNLESS RECENT INFECTION IS SUSPECTED OR OTHER EVIDENCE EXISTS TO INDICATE HCV INFECTION. EFFECTIVE OCTOBER 08, 2021 HCV ANTIBODY REFLEX TO MAE WILL BE MADE NON-ORDERABLE. THIS WILL AFFECT ANY CUSTOM PROFILE THAT INCLUDES [id number] HCV ANTIBODY REFLEX TO MAE. [facility] OFFERS ORDER CODE [id number] HCV ANTIBODY RFX TO QUANT PCR AN ALTERNATIVE. Blood 08/31/2021 10:4 6 AM CDT Narrative [facility] - 09/01/2021 7:11 AM CDT TESTING PERFORMED AT: [CB] [address], [address], PHONE: [phone], DIRECTOR INTERNAL AUDIT: MARTIN JUAREZ, PHD Release to patient->Immediate us Willis Hubbard MD CHEMISTRY ORDERABLES Final R esult [facility] from Last 3 Months or Most Recently Relevant to Health Maintenance Insurance [facility] O[facility] Care Teams Surveillance Inspector Relationship Specialty Start Date End Date Brendon Shaffer [address] [place] [address] PCP - General Family Medicine 10/23/17 Willis Hubbard MD [address] [place] [id number] Consulting Physician Oncology 07/17/21
--- OUTSIDE RECORDS SUMMARY | 2025-04-27 05:11 | XMS_ITS | Encounter Summary ---
Author Organization [facility] Address [address] [place] [address] Phone Care Team Providers Care Shipping/Receiving Clerk Name Role Phone Brendon Shaffer Primary Care Provider [phone] Willis Hubbard MD Unavailable Encounter Details Date Type Department Care Team (Late st Contact Info) Description 01/14/2022 Telephone [facility] [address] [address] Willis Hubbard MD [address] [address] Social History Tobacco Use Types Packs/Day Years Used Date Smoking Tobacco: Former Cigarettes 0 Q uit: 10/23/1997 Smokeless Tobacco: Never Alcohol Use Standard Drinks/Week Comments No 0 (1 standard drink = 0.6 oz pur e alcohol) PHQ-2 Answer Date Recorded Total Score - Questions 1-9 0 050 10/2021 Sex and Gender Information Value Date [...] documented as of this encounter Care Teams Shipping/Receiving Clerk Relationship Specialty Start Date End Date Brendon Shaffer [address] [place] [address] PCP - General Family Medicine 10/23/17 Willis Hubbard MD [address] [place] [phone] Consulting Physician Oncology 07/17/21 documented as of this encounter
--- OUTSIDE RECORDS SUMMARY | 2025-04-27 05:11 | XMS_ITS | Clinical Summary ---
Author Organization [facility] Address [address] [place] [address] Care Team Providers Care Solid State Tester Name Role Phone Brendon Shaffer MD Primary Care Provider [phone] Source Comments [facility],non-owned Affiliates and Associated Physician Practices is amultiple site organization consisting of ambulatory clinics and hospital sitesin [place], [place], [place] and [place]. This disclosure is being madepursuant to the Care Everywhere program and may not contain all information available regarding this patient. Last updated 18.[facility] Allergies Active Allergy Reactions Criticality Noted Date Comments Latex Itching 10/23/2017 Medications * Be aware that medications may not be up to date on this document. Alwaysverify current medications with the patient. losartan (COZAAR) 50 MG tablet Take 1 [...] at Not on file Legal Sex Male 9:34 AM CDT Gender Identity Not on file [...] 1:45 PM CDT Height 180.3 cm (5' 11) 09/25/2020 1:45 PM CDT Body Mass Index [...] 2023 ZOSTER VACCINE (1 of 2) 2023 DEPRESSION SCREENING 06/09/2024 COVID-19 VACCINE (1 - 2024-2 6 season) 2025 INFLUENZA VACCINE (#1) 2025 HIB VACCINE Aged Out No longer [...] patient's age to complete this topic Insurance [employer] HE[employer] SELF PAY NO INSURANCE Member Subscriber Plan / Payer (Ef fective for All Dates) Name:ZeusEbony Jr Member ID:Not on file Relation to Subscriber:Not on file Name:ZEUSEBONYYUDITH Harris JR Subscriber ID:Not on file (Home) Address: [address] [place] [id number] Payer ID:Not on file Group ID:Not on file Type:Self Pay Address: [place], [place] Care Teams Solid State Tester Relationship Specialty Start Date End Date Brendon Shaffer MD PCP - General 02/02/20
--- OUTSIDE RECORDS SUMMARY | 2025-04-27 05:12 | XMS_ITS | Clinical Summary ---
Author Organization [facility] Address [address] [place] [id number] Care Team Providers Care Application Support Technician Name Role Phone Brendon Shaffer MD Primary Care Provider [phone] Social History Tobacco Use Types Packs/Day Years [...] of 3 - 19+ 3-dose series) 02/16/1992 Pneumococcal Vaccine: 50+ Ye ars (1 of 1 - PCV) 2023 Zoster Vaccines (1 of 2) 2023 COVID-19 Vaccine (2 - 2024-2 6 season) 2025 05/23/2021 Influenza Adult (#1) 2025 Hepatitis A Vaccines Aged Out No long er eligible based on patient's age to complete this topic Meningococcal B Vaccine Aged Out No l onger eligible based on patient's age to complete this topic Meningococcal Vaccine Aged Out No gene lynette eligible based on patient's age to complete this topic RSV Immunizations Under 20 Months Aged Out No longer eligible based on patient's age to complete this topic Insurance [employer] [facility] Care Teams Application Support Technician Relationship Specialty Start Date End Date Brendon Shaffer MD PCP - General FAMILY PRACTICE 09/20/21
== END 2025-04-27 03:24 | disposition home or self-care (01) ==
PROVIDERS: Emergency Provider Registered Nurse; PCP Emergency Medicine
DX: R07.89 Other chest pain (principal); K21.9 Gastro-esophageal reflux disease without esophagitis; G47.30 Sleep apnea, unspecified; I10 Essential (primary) hypertension
CPT/HCPCS: 36415; 71046; 80053; 83690; 83880; 84443; 84484; 85025; 85380; 85610; 85730; 93005; 96372; 99284; J1885